=== PATIENT | female | born 1935 | race Caucasian/White ===

== ENCOUNTER → 2018-03-04 13:46 | Outpatient (CLI) | payer MEDICARE, OTHER, SELFPAY ==
[2018-03-04 15:00] LABS: Absolute Lymphocyte Count 1.61 X10^3/ul (0.83-4.51); Absolute Neutrophil Count 7.1 X10^3/uL (2.0-7.7); Basophil# 0.02 X10^3/uL; Basophil% 0.2 % (0-1); Eosinophil# 0.05 X10^3/uL; Eosinophils% 0.5 % (0-5); Hematocrit 43.3 % (37-47); Hemoglobin 14.2 g/dl (12.0-15.0); Lymphocyte # 1.61 X10^3/ul (4.0); Lymphocyte % 16.8 % (19-41); Mean Corp Hgb Conc 32.8 g/gl (32-36); Mean Corpuscular Hgb 30.3 pg (27.0-32.0); Mean Corpuscular Volume 92.5 fL (81-99); Mean Platelet Vol. 10.1 fl (6.2-12.0); Monocyte# 0.77 X10^3/uL; Neutrophil % 73.9 % (47-70); Platelet Count 294 K/mm3 (150-450); RBC Distribution Width CV 13.3 % (11.6-14.6); RBC Distribution Width SD 44.2 fl (35.1-43.9); Red Blood Count 4.68 M/mm3 (4.2-5.4); White Blood Count 9.6 K/mm3 (4.4-11.0)
[2018-03-04 15:07] LABS: POSITIVE COUNT NO; POSITIVE DIFFERENTIAL NO; POSITIVE MORPHOLOGY NO
[2018-03-04 15:30] LABS: ALB/GLOB Ratio 0.8 RATIO (0.9-2.4); AST(SGOT) 27 U/L (15-37); Alanine Aminotransfer ALT/SGPT 27 U/L (13-56); Albumin, Serum 3.4 g/dL (3.2-5.0); Alkaline Phosphatase 109 U/L (45-117); Anion Gap 11 (5-15); BUN 19 mg/dL (7-18); BUN/Creat Ratio 27.5 RATIO (10-20); Calcium,Total 9.2 mg/dL (8.5-10.1); Chloride 98 mmol/L (98-107); Creatinine, Serum 0.69 mg/dL (0.55-1.02); EST Glomerular Filtration Rate 86 mL/min (>60); Est Glom Filt Rate - Afr Amer 104 mL/min (>60); Glucose 81 mg/dL (74-106); Protein, Total 7.4 g/dL (6.4-8.2); Sodium Level 134 mmol/L (136-145); Thyroid Stim Hormone (TSH) 0.59 uIU/mL (0.358-3.74)
[2018-03-05 08:58] LABS: Vitamin B12 587 pg/mL (211-911); Vitamin D,25 Hydroxy 37.3 ng/mL (29.95-100.01)
[2018-03-07 02:34] LABS: Rapid Plasmin Reagin (RPR) NONREACTIVE (NONREACTIVE)
== END ==
PROVIDERS: Visit Provider Family Medicine Geriatric Medicine
DX: E55.9 Vitamin D deficiency, unspecified (principal); F05 Delirium due to known physiological condition; N39.0 Urinary tract infection, site not specified
CPT/HCPCS: 36415; 80053; 82306; 82607; 82746; 84443; 85025; 86592; 87077; 87086; 87088; 87186

== ENCOUNTER → 2018-10-08 15:37 | Outpatient (CLI) | payer MEDICARE, OTHER, SELFPAY ==
[2018-10-08 16:15] LABS: Absolute Neutrophil Count 5.5 X10^3/uL (2.0-7.7); Basophil# 0.01 X10^3/uL; Basophil% 0.1 % (0-1); Eosinophil# 0.07 X10^3/uL; Eosinophils% 0.9 % (0-5); Hematocrit 41.8 % (37-47); Hemoglobin 13.8 g/dl (12.0-15.0); Lymphocyte % 15.5 % (19-41); Mean Corpuscular Hgb 29.9 pg (27.0-32.0); Mean Corpuscular Volume 90.5 fL (81-99); Mean Platelet Vol. 10.8 fl (6.2-12.0); Monocyte# 0.92 X10^3/uL; Monocyte% 11.9 % (0-10); Neutrophil # 5.53 X10^3/uL (2.7-7.7); Neutrophil % 71.3 % (47-70); Platelet Count 144 K/mm3 (150-450); RBC Distribution Width CV 13.5 % (11.6-14.6); RBC Distribution Width SD 44.4 fl (35.1-43.9); Red Blood Count 4.62 M/mm3 (4.2-5.4); White Blood Count 7.8 K/mm3 (4.4-11.0)
[2018-10-08 16:21] LABS: POSITIVE COUNT NO; POSITIVE DIFFERENTIAL NO; POSITIVE MORPHOLOGY NO
[2018-10-08 16:42] LABS: Anion Gap 9 (5-15); BUN 18 mg/dL (7-18); BUN/Creat Ratio 23.7 RATIO (10-20); Calcium,Total 9.3 mg/dL (8.5-10.1); Chloride 99 mmol/L (98-107); Creatinine, Serum 0.76 mg/dL (0.55-1.02); EST Glomerular Filtration Rate 77 mL/min (>60); Est Glom Filt Rate - Afr Amer 93 mL/min (>60); Glucose 85 mg/dL (74-106); Potassium 3.7 mmol/L (3.5-5.1); Sodium Level 138 mmol/L (136-145)
== END ==
PROVIDERS: Visit Provider Family Medicine Geriatric Medicine
DX: I10 Essential (primary) hypertension (principal); N39.0 Urinary tract infection, site not specified
CPT/HCPCS: 80048; 85025; 87077; 87086; 87088; 87186

== ENCOUNTER → 2018-11-13 11:49 | Outpatient (CLI) | payer MEDICARE, OTHER, SELFPAY ==
[2018-11-13 12:42] LABS: Absolute Lymphocyte Count 1.26 X10^3/ul (0.83-4.51); Absolute Neutrophil Count 6.5 X10^3/uL (2.0-7.7); Basophil# 0.03 X10^3/uL; Basophil% 0.3 % (0-1); Eosinophils% 1.2 % (0-5); Hematocrit 41.9 % (37-47); Hemoglobin 13.9 g/dl (12.0-15.0); Lymphocyte # 1.26 X10^3/ul (4.0); Lymphocyte % 14.5 % (19-41); Mean Corp Hgb Conc 33.2 g/gl (32-36); Mean Corpuscular Hgb 30.2 pg (27.0-32.0); Mean Corpuscular Volume 91.1 fL (81-99); Mean Platelet Vol. 10.6 fl (6.2-12.0); Monocyte# 0.77 X10^3/uL; Monocyte% 8.9 % (0-10); Neutrophil # 6.49 X10^3/uL (2.7-7.7); Neutrophil % 74.9 % (47-70); Platelet Count 67 K/mm3 (150-450); RBC Distribution Width SD 45.9 fl (35.1-43.9); White Blood Count 8.7 K/mm3 (4.4-11.0)
[2018-11-13 12:47] LABS: POSITIVE COUNT NO; POSITIVE DIFFERENTIAL NO; POSITIVE MORPHOLOGY NO
[2018-11-13 13:03] LABS: AST(SGOT) 20 U/L (15-37); Alanine Aminotransfer ALT/SGPT 24 U/L (13-56); Albumin, Serum 3.7 g/dL (3.2-5.0); Alkaline Phosphatase 96 U/L (45-117); Anion Gap 8 (5-15); BUN 22 mg/dL (7-18); BUN/Creat Ratio 27.2 RATIO (10-20); Calcium,Total 9.2 mg/dL (8.5-10.1); Chloride 100 mmol/L (98-107); Creatinine, Serum 0.81 mg/dL (0.55-1.02); EST Glomerular Filtration Rate 72 mL/min (>60); Est Glom Filt Rate - Afr Amer 87 mL/min (>60); Globulin 3.6 g/dL (2.2-4.2); Glucose 87 mg/dL (74-106); Protein, Total 7.3 g/dL (6.4-8.2); Sodium Level 135 mmol/L (136-145); Thyroid Stim Hormone (TSH) 0.91 uIU/mL (0.358-3.74)
[2018-11-13 13:05] LABS: Vitamin D,25 Hydroxy 31.4 ng/mL (29.95-100.01)
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
== END ==
PROVIDERS: Visit Provider Family Medicine Geriatric Medicine
DX: E55.9 Vitamin D deficiency, unspecified (principal); I10 Essential (primary) hypertension
CPT/HCPCS: 36415; 80053; 82306; 84443; 85025

== ENCOUNTER → 2019-01-20 12:45 | Outpatient (CLI) | payer MEDICARE, OTHER, SELFPAY ==
--- NOTE | 2019-01-20 12:55 | RAD_ITS ---
STUDY: X-RAY - ABDOMEN/PELVIS REASON FOR EXAM: Female, 83 years old. Fecal impaction. TECHNIQUE: Two AP supine views of the abdomen and pelvis. COMPARISON: None. FINDINGS: Normal visualized lung bases. There is an unremarkable bowel gas pattern. Surgical are seen in the right upper quadrant. This is most likely secondary to prior cholecystectomy. There is a 8.3 mm calcification in the right mid abdomen. This may be within the right kidney. Normal soft tissue structures. There are diffuse degenerative changes of the visualized lumbar spine. RAD/Abdomen Single View IMPRESSION: Nonspecific bowel gas. Electronically Signed: Quirino Martinez MD at 14:04 EST , Service support ,
--- NOTE | 2019-01-20 12:55 | CT_ITS ---
STUDY: CT BRAIN WITHOUT CONTRAST REASON FOR EXAM: Female, 83 years old. The M. RADIATION DOSAGE (If Supplied By Facility): CTDIvol = ( 44.99 ) mGy, DLP = ( 812.98 ) mGycm TECHNIQUE: Transaxial CT imaging of the brain was performed without administration of intravenous contrast material. Individualized dose optimization techniques were used for this CT. COMPARISON: None. FINDINGS: Normal soft tissue structures. Normal calvarium. There is mild cerebral atrophy with widening of the extra-axial spaces and ventricular dilatation. There are areas of decreased attenuation within the white matter tracts of the supratentorial brain, consistent with microvascular disease changes. Tiny lacuna in the insular cortex of the left temporal lobe. Normal brainstem. Normal cerebellum. There is no intracranial hemorrhage. There are no findings of an acute ischemic infarction. Mucosal thickening along the posterior aspect of the left ethmoid sinus. CT/Brain/Head without Contrast IMPRESSION: Chronic involutional changes of the brain. Electronically Signed: Quirino Martinez MD at 13:21 EST , Service support ,
--- NOTE | 2019-01-20 12:55 | RAD_ITS ---
STUDY: X-RAY CHEST REASON FOR EXAM: Female, 83 years old. Syncope. TECHNIQUE: PA and lateral views of the chest. COMPARISON: None. FINDINGS: There is a 1.8 cm x 3.2 cm nodule in the right upper lobe. Hyperinflation. Increased markings at the lung bases suggestive of scarring. There is no demonstrated pleural abnormality. Normal size heart. Normal mediastinum and patricia. Normal visualized pulmonary arteries. There is atherosclerotic calcification of the aortic arch with tortuosity. There is demineralization of the osseous structures. Increased kyphosis. And anchor clip is seen in the right humeral head. There is no demonstrated abnormality of the visualized soft tissue structures of the upper abdomen. RAD/Chest PA and Lateral IMPRESSION: 3.2 cm x 1.8 cm nodule in the right upper lobe.. Findings suggestive of scarring at the lung bases. Electronically Signed: Quirino Martinez MD at 14:07 EST , Service support ,
[2019-01-20 15:48] LABS: Absolute Lymphocyte Count 1.09 X10^3/ul (0.83-4.51); Absolute Neutrophil Count 5.5 X10^3/uL (2.0-7.7); Basophil# 0.01 X10^3/uL; Basophil% 0.1 % (0-1); Eosinophil# 0.04 X10^3/uL; Eosinophils% 0.5 % (0-5); Hematocrit 40.8 % (37-47); Lymphocyte # 1.09 X10^3/ul (4.0); Lymphocyte % 14.6 % (19-41); Mean Corp Hgb Conc 31.9 g/gl (32-36); Mean Corpuscular Hgb 30.2 pg (27.0-32.0); Mean Corpuscular Volume 94.7 fL (81-99); Mean Platelet Vol. 11.2 fl (6.2-12.0); Monocyte# 0.78 X10^3/uL; Monocyte% 10.5 % (0-10); Neutrophil # 5.53 X10^3/uL (2.7-7.7); Neutrophil % 74.2 % (47-70); Platelet Count 174 K/mm3 (150-450); RBC Distribution Width CV 13.2 % (11.6-14.6); RBC Distribution Width SD 44.1 fl (35.1-43.9); Red Blood Count 4.31 M/mm3 (4.2-5.4); White Blood Count 7.5 K/mm3 (4.4-11.0)
[2019-01-20 16:00] LABS: ALB/GLOB Ratio 1.1 RATIO (0.9-2.4); AST(SGOT) 21 U/L (15-37); Alanine Aminotransfer ALT/SGPT 20 U/L (13-56); Albumin, Serum 3.3 g/dL (3.2-5.0); Alkaline Phosphatase 83 U/L (45-117); Anion Gap 11 (5-15); BUN 15 mg/dL (7-18); BUN/Creat Ratio 22.6 RATIO (10-20); Calcium,Total 8.3 mg/dL (8.5-10.1); Chloride 109 mmol/L (98-107); Creatinine, Serum 0.66 mg/dL (0.55-1.02); EST Glomerular Filtration Rate 90 mL/min (>60); Est Glom Filt Rate - Afr Amer 109 mL/min (>60); Globulin 3.1 g/dL (2.2-4.2); Glucose 69 mg/dL (74-106); Potassium 3.5 mmol/L (3.5-5.1); Protein, Total 6.4 g/dL (6.4-8.2); Sodium Level 142 mmol/L (136-145); Thyroid Stim Hormone (TSH) 0.63 uIU/mL (0.358-3.74)
[2019-01-20 16:02] LABS: POSITIVE COUNT NO; POSITIVE DIFFERENTIAL NO; POSITIVE MORPHOLOGY NO
== END ==
PROVIDERS: Family Provider Family Medicine Geriatric Medicine; PCP Family Medicine Geriatric Medicine; Referring Provider Family Medicine Geriatric Medicine; Visit Provider Family Medicine Geriatric Medicine
DX: F05 Delirium due to known physiological condition (principal); R53.83 Other fatigue
CPT/HCPCS: 36415; 70450; 71046; 74018; 80053; 84443; 85025

== ENCOUNTER 2019-01-26 14:02 | Inpatient (IN) | payer MEDICARE, OTHER, SELFPAY ==
[2019-01-26] VITALS (7 sets, daily range): BP systolic 103–207; BP diastolic 59–100; PULSE 73–102; RESP 16–20; TEMP 36.6–36.8; O2SAT 95–99; BMI 22.1; BMI 22.8
[2019-01-26 16:23] LABS: Bacteria 0 SEEN /hpf (None Seen); Mucous, Urine 0 SEEN /hpf (<or=2+); Red Blood Cells-Urine 0 SEEN /hpf (0-5); Squamous Epithelial Cells - UA 0 SEEN /hpf (5-10); White Blood Cells 0 SEEN /hpf (0-5)
[2019-01-26 16:26] LABS: Color, Urine Yellow (Yellow); Glucose, Dipstick Normal (Normal); Ketone-Dipstick Negative (Negative); Leukocyte Esterase-Dipstick Negative /ul (Negative); Nitrite-Dipstick Negative (Negative); Occult Blood-Urine 10 /ul (Negative); Protein-Dipstick 30 mg/dl (Negative); Specific Gravity, Urine 1.015 (1.002-1.030); Urine Bilirubin Dipstick Negative (Negative); Urine Clarity Clear (Clear); Urine Urobilinogen Normal (Normal)
--- NOTE | 2019-01-26 16:32 | EKG12_ITS ---
Test Reason : Blood Pressure : / mmHG Vent. Rate : 093 BPM Atrial Rate : 093 BPM P-R Int : 222 ms QRS Dur : 088 ms QT Int : 374 ms P-R-T Axes : 057 -16 081 degrees QTc Int : 465 ms Sinus rhythm with 1st degree A-V block Minimal voltage criteria for LVH, may be normal variant Borderline ECG Confirmed by PETE BOOTHE, MARYLIN ([id number]), editorial intern JOSE DE JESUS OZUNA ([id number] on 01/28/2019 10:09:16 AM Referred By: KATHERINE Confirmed By:MARYLIN FREEMAN MD
--- NOTE | 2019-01-26 16:36 | CT_ITS ---
STUDY: CT CHEST WITH CONTRAST REASON FOR EXAM: Female, 83 years old. Mass on chest x-ray. RADIATION DOSAGE (If Supplied By Facility): CTDIvol = ( 8.15 ) mGy, DLP = ( 263.02 ) mGycm TECHNIQUE: Transaxial imaging was performed following intravenous administration of Isovue 300 100 IV. Individualized dose optimization techniques were used for this CT. COMPARISON: X-ray 01/20/2019. FINDINGS: Heart size is normal. There is no pericardial effusion. 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 There is moderate calcification of the aorta and coronary arteries. There is no mediastinal mass or adenopathy. No hilar or axillary adenopathy. There is no pleural effusion. There is a 3.3 x 2.3 x 1.7 cm cavitary lesion in the superior segment of the right lower lobe. There is no definite peripheral enhancement. There is mild extension along the fissure. Differential considerations include: Malignancy versus cavitary pneumonia. 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 Gallbladder is surgically absent. Dilated common duct is consistent with prior cholecystectomy. 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 Mild degenerative spine changes are noted. No destructive changes. CT/Chest WITH Contrast IMPRESSION: 1. A 3.3 x 2.3 cm cavitary lesion in the right lower lobe is consistent with either malignancy or cavitary pneumonia. If clinical findings suggest pneumonia, short interval follow-up is advised after a course of antibiotic therapy to document regression/resolution. Otherwise, consider percutaneous biopsy. 2. 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 3. Chronic findings are detailed above. Electronically Signed: Shirley Sanchez MD at 18:09 EST Tel , Service support ,
--- NOTE | 2019-01-26 16:37 | NURSING ---
NO OLD EKGS
[2019-01-26 16:55] LABS: Absolute Lymphocyte Count 1.36 X10^3/ul (0.83-4.51); Absolute Neutrophil Count 5.5 X10^3/uL (2.0-7.7); Basophil# 0.03 X10^3/uL; Basophil% 0.4 % (0-1); Eosinophil# 0.13 X10^3/uL; Eosinophils% 1.7 % (0-5); Hemoglobin 14.7 g/dl (12.0-15.0); Lymphocyte # 1.36 X10^3/ul (4.0); Lymphocyte % 17.7 % (19-41); Mean Corpuscular Hgb 29.6 pg (27.0-32.0); Mean Corpuscular Volume 92.6 fL (81-99); Mean Platelet Vol. 9.1 fl (6.2-12.0); Monocyte# 0.71 X10^3/uL; Monocyte% 9.2 % (0-10); Neutrophil # 5.46 X10^3/uL (2.7-7.7); Neutrophil % 70.9 % (47-70); Platelet Count 234 K/mm3 (150-450); RBC Distribution Width CV 13.5 % (11.6-14.6); RBC Distribution Width SD 45.6 fl (35.1-43.9); Red Blood Count 4.97 M/mm3 (4.2-5.4); White Blood Count 7.7 K/mm3 (4.4-11.0)
[2019-01-26 17:06] LABS: POSITIVE COUNT NO; POSITIVE DIFFERENTIAL NO; POSITIVE MORPHOLOGY NO
[2019-01-26 17:08] LABS: ALB/GLOB Ratio 1.2 RATIO (0.9-2.4); AST(SGOT) 20 U/L (15-37); Alanine Aminotransfer ALT/SGPT 20 U/L (13-56); Albumin, Serum 4.1 g/dL (3.2-5.0); Alkaline Phosphatase 101 U/L (45-117); Anion Gap 10 (5-15); BUN 14 mg/dL (7-18); BUN/Creat Ratio 17.6 RATIO (10-20); Calcium,Total 9.3 mg/dL (8.5-10.1); Chloride 105 mmol/L (98-107); EST Glomerular Filtration Rate 73 mL/min (>60); Est Glom Filt Rate - Afr Amer 88 mL/min (>60); Globulin 3.5 g/dL (2.2-4.2); Glucose 98 mg/dL (74-106); Potassium 3.5 mmol/L (3.5-5.1); Protein, Total 7.6 g/dL (6.4-8.2); Sodium Level 144 mmol/L (136-145)
[2019-01-26 18:29] LABS: CPK Total, Creatine Kinase 53 U/L (26-192)
--- NOTE | 2019-01-26 19:07 | HP.PCM_ITS ---
Problem List (1) Hypertension Status: Chronic (2) Cavitary pneumonia Status: Acute History of Present Illness Date of Admission: 01/26/19 Chief Complaint: confusion The patient is a 83 year old F with a significant history of hypertension who presented to the emergency department because of 1 week history of confusion. Also patient was incontinent of stool x1 on the day of admission. Also a day before presentation she fell. She has a nonproductive cough. She denied night sweats or hemoptysis. She denies being close to anybody with tuberculosis. Reportedly outpatient chest x-ray showed a lung mass. At emergency department CT of the chest showed a cavitary lesion with different diagnosis including neoplasm. Past Medical History Past Medical History (Chronic Problems): Chronic Problems Hypertension (Chronic) Allergies Sulfa (Sulfonamide Antibiotics) Allergy (Verified 01/26/19 14:04) Hives Home Medications: Ambulatory Orders Medication Instructions Recorded Losartan Potassium 100 mg PO DAILY 01/26/19 Surgical History: cholecystectomy, tonsillectomy Lives: With Family Smoking Status: Never smoker Alcohol: Occasional - *Family History Maternal History Items: Cancer - Thyroid Paternal History Items: Cancer - colon Review of Systems Constitutional: Reports: Anorexia, Weight Change - Patient lost about 10 pounds in the last 3 months.. Denies: Chills, Fever HEENT: Denies: Head Aches, Sinus Congestion, Sinus Drainage Cardiovascular: Denies: Chest Pain, Palpitations Respiratory: Reports: Cough. Denies: Shortness of breath at rest, Sputum production Gastrointestinal: Denies: Abdominal Pain, Nausea, Vomiting Genitourinary: Denies: Dysuria Musculoskeletal: Reports: Joint Pain - coyccx, Leg Pain Skin: Denies: Rash, Wounds Neurological: Denies: Numbness, Tingling, Focal weakness Psychiatric: Denies: Anxiety, Depression, Homicidal Ideations, Suicidal Ideations Hematologic/ Lymphatic: Denies: Easy Bruising, Easy Bleeding VTE Information - Inpt Only VTE Present on Admission: No VTE Mechan Device Prophylaxis: None VTE Pharm Prophylaxis ordered?: Yes Patient Problems: Active and Suspected Problems Delirium (Acute) Cavitary pneumonia (Acute) - Physical Exam General: Alert, Oriented x3, Cooperative HEENT: Atraumatic, PERRLA, EOMI, Normocephalic Neck: Supple, No JVD, Negative Carotid Bruits Lungs: Clear to auscultation, Normal air movement Cardiovascular: Regular rate, No murmurs Abdomen: Bowel Sounds Present, Soft, Non Tender Extremities: No edema, Capillary Refill Less than 3 Seconds Skin: No rashes, No breakdown Musculoskeletal: No Tenderness to Palpation of Joints or Extremities Neurological: Neuro grossly intact Psych/Mental Status: Normal Affect, Appropriate Vital Signs Temp Pulse Resp BP Pulse Ox 98.2 F 87 16 207/99 H 95 01/26/19 14:05 01/26/19 18:26 01/26/19 18:26 01/26/19 18:26 01/26/19 18:26 Oxygen Delivery Method Room Air Weight: 56.699 kg Body Mass Index (BMI) 22.1 Laboratory Tests Past 24 Hrs 01/26/19 01/26/19 01/26/19 16:15 16:40 16:40 WBC 7.7 RBC 4.97 Hgb 14.7 Hct 46.0 MCV 92.6 MCH 29.6 MCHC 32.0 RDW 13.5 RDW Differential 45.6 H Plt Count 234 MPV 9.1 Immature Gran % (Auto) 0.100 Neut % (Auto) 70.9 H Lymph % (Auto) 17.7 L [place] % (Auto) 9.2 Eos % (Auto) 1.7 Baso % (Auto) 0.4 Absolute Neuts (auto) 5.5 Absolute Lymphs (auto) 1.36 Total Counted Not Reportable Sodium 144 Potassium 3.5 Chloride 105 Carbon Dioxide 29.0 Anion Gap 10 BUN 14 Creatinine 0.80 Estim Creat Clear Calc 43.30 Est GFR (MDRD) Af Amer 88 Est GFR (MDRD) Non-Af 73 BUN/Creatinine Ratio 17.6 Glucose 98 Calcium 9.3 Total Bilirubin 0.50 AST 20 ALT 20 Alkaline Phosphatase 101 Total Creatine Kinase Troponin I < 0.015 Total Protein 7.6 Albumin 4.1 Globulin 3.5 Albumin/Globulin Ratio 1.2 Urine Color Yellow Urine Clarity Clear Urine pH 7.0 Ur Specific [place] 1.015 Urine Protein 30 H Urine Glucose (UA) Normal Urine Ketones Negative Urine Occult Blood 10 H Urine Nitrite Negative Urine Bilirubin Negative Urine Urobilinogen Normal Ur Leukocyte Esterase Negative Urine RBC 0 SEEN Urine WBC 0 SEEN Ur Squamous Epith Cells 0 SEEN Urine Bacteria 0 SEEN Urine Mucus 0 SEEN 01/26/19 16:40 WBC RBC Hgb Hct MCV MCH MCHC RDW RDW Differential Plt Count MPV Immature Gran % (Auto) Neut % (Auto) Lymph % (Auto) [place] % (Auto) Eos % (Auto) Baso % (Auto) Absolute Neuts (auto) Absolute Lymphs (auto) Total Counted Sodium Potassium Chloride Carbon Dioxide Anion Gap BUN Creatinine Estim Creat Clear Calc Est GFR (MDRD) Af Amer Est GFR (MDRD) Non-Af BUN/Creatinine Ratio Glucose Calcium Total Bilirubin AST ALT Alkaline Phosphatase Total Creatine Kinase 53 Troponin I Total Protein Albumin Globulin Albumin/Globulin Ratio Urine Color Urine Clarity Urine pH Ur Specific [place] Urine Protein Urine Glucose (UA) Urine Ketones Urine Occult Blood Urine Nitrite Urine Bilirubin Urine Urobilinogen Ur Leukocyte Esterase Urine RBC Urine WBC Ur Squamous Epith Cells Urine Bacteria Urine Mucus Assessment/Plan All Active Problems Delirium (Acute) Cavitary pneumonia (Acute) The patient is a 83 year old F with a significant history of hypertension who presented to the emergency department because of 1 week history of confusion; outpatient chest x-ray of probable lung mass and CT chest findings of cavitary lesion; and also with severely elevated blood pressure. Acute encephalopathy Different diagnosis include infection/pneumonia; metabolic derangements. Reportedly her blood glucose was 69 at the emergency department but it improved. Trend BMP Patient was started on the emergency department. We will get blood cultures x 2; TSH and B12. Other management as in cavitary pneumonia Cavitary pneumonia Diagnosis includes Anaerobic lung infection; neoplasm; Staphylococcus aureus pneumonia; Klebsiella pneumonia; Pseudomonas aeruginosa; Aspergillus pneumonia; Histoplasmosis; tuberculosis; or other Management as above. Received Unasyn at emergency department. We will broaden coverage with vancomycin and Zosyn. Mucinex ordered Acapella and incentive spirometer We will get MRSA screen of the nares; Streptococcus pneumonia antigen and Legionella urine antigen.; acid-fast bacillus smear and culture Induced sputum ordered Consider pulmonary and infectious consult. Consider lung biopsy if patient is not improving on antibiotics. Hypertensive urgency: At the emergency department her blood pressure was severely elevated with systolic blood pressure of 212. Although patient missed her blood pressure medication in the last few days, reported she took her medication (Losartan) on the day of presentation. At the emergency department patient received clonidine 0.2 mg. In the first 24 hours will work to reduce her blood pressure by about 25%. Hydralazine as needed for systolic blood pressure more than 170 ordered. Continue home losartan in a.m. Also amlodipine 5 mg ordered for a.m. Cardiac diet. Fall Likely due to confusion. Management as an acute encephalopathy. Reports pain at the tailbone and left leg. As needed Tylenol ordered. DVT prophylaxis Subcutaneous Lovenox Code Visit Inpatient E&M: 13492 Init Hosp L3
--- NOTE | 2019-01-26 19:17 | ED.DCSUM_ITS ---
History of Present Illness Chief Complaint: Confusion Detail of Chief Complaint: Informant was son and noted change greater than 1 week Informant: Patient, Family Onset: Days Context: - - Unknown Timing: Intermittent Quality: Forgetfulness, trouble with speech, problems with fluency Location: Not applicable Current Severity: Mild Maximum Severity: Moderate Worsened by: Nothing Relieved by: Nothing Associated Symptoms: Uncertain Narrative: Elderly woman who lives with 1 of her sons. The son that lives down the street brought her to the emergency department. She had a reported fall on Saturday was on the floor for significant time.. She does not recall she had loss of conscious. She is on no anti-coagulant. She had a outpatient chest x-ray and outpatient CT January 20. Chest x-ray raises concern for mass right upper lobe. CT revealed chronic changes. She also has not been compliant with her antihypertensive medication. Patient not a good informant. History is limited. Prior similar symptoms: No Recent Illness/Hospitalization: No Past Medical History - Allergies and Home Meds Allergies/Adverse Reactions: Allergies Sulfa (Sulfonamide Antibiotics) Allergy (Verified 01/26/19 14:04) Hives Primary Care Physician: Joon Lujan Chi, MD [Primary Care Provider] - Past Medical History: - - Hypertension Surgical History: noncontributory Lives: With Family Smoking Status: Never smoker Alcohol: None Drugs: None Review of Systems General: Reports: Sweats. Denies: Chills, Fever, Malaise Eyes: Denies: Visual changes - bilaterally, Blurred Vision - bilaterally, Diplopia ENT: Denies: Bilateral ear pain, Rhinorrhea Cardiovascular: Denies: Chest pain, Palpitations Respiratory: Denies: Dyspnea, Cough, Sputum, Dyspnea on exertion, Orthopnea, Paroxysmal nocturnal dyspnea Gastrointestinal: Denies: Abdominal pain, Nausea, Vomiting, Diarrhea Genitourinary: Denies: Dysuria, Hematuria, Frequency Musculoskeletal: Denies: Myalgias, Arthralgias, Neck pain, Back pain Skin: Denies: Rash Neurological: Reports: Weakness. Denies: Headache, Parasthesia, Numbness Endocrine: Denies: Polyuria, Polydipsia, Cold intolerance Hematologic: Denies: Easy bruising, Easy bleeding Physical Exam Vital Signs/Narrative: Vital Signs Pulse Resp BP Pulse Ox 01/26/19 18:26 87 16 207/99 H 95 Inital Vital Signs reviewed: Yes General: Well nourished, Well developed Head: Normocephalic, Atraumatic Eyes: Perrl, EOMI. Negative for: Pale conjunctiva, Scleral icterus ENT: Moist mucous membranes, No rhinorrhea, TM's clear, Sinus tenderness Neck: Supple, Nontender, No lymphadenopathy, No JVD, - - No carotid bruits appreciated Cardiovascular: Regular rate, Regular rhythm, No murmurs, Normal S1, Normal S2 Respiratory: No distress, CTA bilaterally, Chest nontender Abdomen: Soft, Nontender, Nondistended, Normal bowel sounds, No masses Rectal: Deferred Back: Nontender, Normal Inspection Extremities: Nontender, No edema, Tenderness Skin: Normal color, No rash Neurological: Alert, Cranial nerves II-XII grossly intact, Normal Strength, Normal Sensation, Normal DTR, Confused, - - Patient was able to recall 3 out of 3 objects immediately. She was only able to recall 1 of 3 objects at 5 minutes. She had difficulty subtracting 3 from 20. Gait revealed shuffled steps. She was not ataxic.. Negative for: Oriented x3 Psychological: Normal affect Diagnostic/Tx/Re-eval CBC, CMP, troponin, CPK and UA are unremarkable. CT of the chest with IV contrast reveals a cavitary lesion right upper lobe. This may represent a neoplasm versus pneumonia. Patient was treated with 3.0 g of Unasyn IV piggyback. Patient and family were made aware of findings. - Medical Decision Making Dementia, delirium, need to rule out metabolic versus infectious cause. In light of chest x-ray findings need to rule out neoplasm. ED Disposition - Plan for ED Patient: Disposition: Acute Care [facility] Diagnosis: Cavitary lesion right upper lobe, Delirium, Hypertension Referrals: Joon Lujan Chi, MD [Primary Care Provider] -
[2019-01-26] MEDS: cloNIDine HCl 0.1 MG Tablet 0.2 MG PO (20:05)
[2019-01-26] MEDS: guaiFENesin 1,200 MG Tablet 1200 MG PO (20:52)
[2019-01-26 22:03] LABS: Vitamin B12 513 pg/mL (211-911)
[2019-01-27] VITALS (15 sets, daily range): BP systolic 131–205; BP diastolic 63–91; PULSE 64–93; RESP 16–18; TEMP 36.4–36.9; O2SAT 94–98
[2019-01-27] MEDS: Sodium Chloride 3% 500 ML IV.SOLN. INHALATION ×3 (05:20→23:20)
[2019-01-27 06:14] LABS: Anion Gap 9 (5-15); BUN 14 mg/dL (7-18); BUN/Creat Ratio 19.8 RATIO (10-20); Calcium,Total 8.5 mg/dL (8.5-10.1); Chloride 105 mmol/L (98-107); Creatinine, Serum 0.71 mg/dL (0.55-1.02); EST Glomerular Filtration Rate 84 mL/min (>60); Est Glom Filt Rate - Afr Amer 101 mL/min (>60); Estimated Creatinine Clearance 33.12 ml/min; Glucose 92 mg/dL (74-106); Potassium 3.8 mmol/L (3.5-5.1); Sodium Level 142 mmol/L (136-145)
[2019-01-27 06:36] LABS: M R Staph aureus DNA By PCR Negative (Negative); Probe Check PASS; Specimen Processing Control PASS
--- NOTE | 2019-01-27 07:55 | PN_ITS ---
Patient Problems: Active and Suspected Problems Delirium (Acute) Cavitary pneumonia (Acute) Subjective: The patient is a 83-year-old female with a past medical history of hypertension who was brought to the emergency department at [facility] on 01/26/2019 with complaint of confusion present for about 1 week. She also had a fall 1 day prior to being brought to the ED. Reportedly she had an OP CXR that showed a possible lung mass on 01/20. A brain CT on that date showed chronic involutional changes of the brain. She had been seen in the office by Dr. Lujan for delirium on 01/20. No signs of presentation to the emergency room were temperature 98.2, heart rate 102, blood pressure 176/97, respiratory rate 17 and she was 96-99% saturated on room air. White blood cell count was 7.7 with an unremarkable differential. Hemoglobin and platelets were within normal limits. BMP was normal. LFTs were normal. Troponin was less than 0.015. TSH was normal at 0.9 and the B12 was also normal at 513. UA had 0 WBCs. TB QuantiFERON was sent off and is pending. MRSA screen was negative. CT scan of the chest showed a 3.3 x 2.3 x 1.7 cm cavitary lesion in the superior segment of the right lower lobe. 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 Was a large duodenal diverticulum. All events the past 24 hours been reviewed. Afebrile since admission. Vital signs are stable and the current blood pressure is 131/63. BMP is again within normal limits. I reviewed the CT of the chest and there also appears to be a small nodule in the R upper lobe and also in the RLL she is confused....her granddaughter Rosie tells me that she is confused at home.....glen when she is sick She also tells me that the pt changes the subject when she does not know the answer to a question. She is really aphasic.....she can follow commands and the speech is fluent......she is just confused. GD states she has not lost weight over the past few months Has not been coughing Never smoked Denies ever being exposed to someone with TB - Physical Exam General: Alert, Cooperative, Well developed, Well nourished, Confused, Disoriented - she is oriented to person and she can tell me that she is at [facility] but she can not tell me the month, the year or the day of the week. Told me that fish can sometimes fly HEENT: Atraumatic, PERRLA, EOMI, Normocephalic Oral: Dry Mucosa Neck: Supple, No JVD, Negative Carotid Bruits, No Nodes, No Nuchal Rigidity, Trachea Midline Lungs: Clear to auscultation - anterior and lateral Cardiovascular: Regular rate, Regular Rhythm, Normal S1, Normal S2, No murmurs, No rub noted, No Gallop Abdomen: Bowel Sounds Present, Soft, Non Tender, Non-Distended, - - No guarding with palpation Extremities: No clubbing, No cyanosis, No edema, No Calf Tenderness Skin: No rashes, No breakdown Lymphatic: - - No supraclavicular or cervical adenopathy Neurological: Cranial nerves II-XII grossly intact, Neuro grossly intact, - - able to follow simple commands Vital Signs Temp Pulse Resp BP Pulse Ox 97.6 F L 69 18 131/63 H 94 01/27/19 03:10 01/27/19 05:59 01/27/19 05:20 01/27/19 03:10 01/27/19 05:20 Oxygen Delivery Method Room Air Weight: 126 lb 12.253 oz Body Mass Index (BMI) 22.8 Intake and Output for Last 24 Hours 01/25/19 01/26/19 01/27/19 23:59 23:59 23:59 Intake Total 612 / 612 Balance 612 / 612 Laboratory Tests Past 24 Hrs 01/26/19 01/26/19 01/26/19 16:15 16:40 16:40 WBC 7.7 RBC 4.97 Hgb 14.7 Hct 46.0 MCV 92.6 MCH 29.6 MCHC 32.0 RDW 13.5 RDW Differential 45.6 H Plt Count 234 MPV 9.1 Immature Gran % (Auto) 0.100 Neut % (Auto) 70.9 H Lymph % (Auto) 17.7 L [place] % (Auto) 9.2 Eos % (Auto) 1.7 Baso % (Auto) 0.4 Absolute Neuts (auto) 5.5 Absolute Lymphs (auto) 1.36 Total Counted Not Reportable Sodium 144 Potassium 3.5 Chloride 105 Carbon Dioxide 29.0 Anion Gap 10 BUN 14 Creatinine 0.80 Estim Creat Clear Calc 43.30 Est GFR (MDRD) Af Amer 88 Est GFR (MDRD) Non-Af 73 BUN/Creatinine Ratio 17.6 Glucose 98 Calcium 9.3 Total Bilirubin 0.50 AST 20 ALT 20 Alkaline Phosphatase 101 Total Creatine Kinase Troponin I < 0.015 Total Protein 7.6 Albumin 4.1 Globulin 3.5 Albumin/Globulin Ratio 1.2 Vitamin B12 TSH Urine Color Yellow Urine Clarity Clear Urine pH 7.0 Ur Specific [place] 1.015 Urine Protein 30 H Urine Glucose (UA) Normal Urine Ketones Negative Urine Occult Blood 10 H Urine Nitrite Negative Urine Bilirubin Negative Urine Urobilinogen Normal Ur Leukocyte Esterase Negative Urine RBC 0 SEEN Urine WBC 0 SEEN Ur Squamous Epith Cells 0 SEEN Urine Bacteria 0 SEEN Urine Mucus 0 SEEN MRSA (PCR) TB Test (QFT) Nil TB Test (QFT) Mitogen TB Test (QFT) Ag 1 TB Test (QFT) Ag 2 TB Test (QFT) TB Positive Criteria 01/26/19 01/26/19 01/26/19 16:40 16:40 21:10 WBC RBC Hgb Hct MCV MCH MCHC RDW RDW Differential Plt Count MPV Immature Gran % (Auto) Neut % (Auto) Lymph % (Auto) [place] % (Auto) Eos % (Auto) Baso % (Auto) Absolute Neuts (auto) Absolute Lymphs (auto) Total Counted Sodium Potassium Chloride Carbon Dioxide Anion Gap BUN Creatinine Estim Creat Clear Calc Est GFR (MDRD) Af Amer Est GFR (MDRD) Non-Af BUN/Creatinine Ratio Glucose Calcium Total Bilirubin AST ALT Alkaline Phosphatase Total Creatine Kinase 53 Troponin I Total Protein Albumin Globulin Albumin/Globulin Ratio Vitamin B12 513 TSH 0.90 Urine Color Urine Clarity Urine pH Ur Specific [place] Urine Protein Urine Glucose (UA) Urine Ketones Urine Occult Blood Urine Nitrite Urine Bilirubin Urine Urobilinogen Ur Leukocyte Esterase Urine RBC Urine WBC Ur Squamous Epith Cells Urine Bacteria Urine Mucus MRSA (PCR) TB Test (QFT) Nil TB Test (QFT) Mitogen TB Test (QFT) Ag 1 TB Test (QFT) Ag 2 TB Test (QFT) TB Positive Criteria 01/26/19 01/27/19 01/27/19 23:15 05:28 06:06 WBC RBC Hgb Hct MCV MCH MCHC RDW RDW Differential Plt Count MPV Immature Gran % (Auto) Neut % (Auto) Lymph % (Auto) [place] % (Auto) Eos % (Auto) Baso % (Auto) Absolute Neuts (auto) Absolute Lymphs (auto) Total Counted Sodium 142 Potassium 3.8 Chloride 105 Carbon Dioxide 28.0 Anion Gap 9 BUN 14 Creatinine 0.71 Estim Creat Clear Calc 33.12 Est GFR (MDRD) Af Amer 101 Est GFR (MDRD) Non-Af 84 BUN/Creatinine Ratio 19.8 Glucose 92 Calcium 8.5 Total Bilirubin AST ALT Alkaline Phosphatase Total Creatine Kinase Troponin I Total Protein Albumin Globulin Albumin/Globulin Ratio Vitamin B12 TSH Urine Color Urine Clarity Urine pH Ur Specific [place] Urine Protein Urine Glucose (UA) Urine Ketones Urine Occult Blood Urine Nitrite Urine Bilirubin Urine Urobilinogen Ur Leukocyte Esterase Urine RBC Urine WBC Ur Squamous Epith Cells Urine Bacteria Urine Mucus MRSA (PCR) Negative TB Test (QFT) Nil Pending TB Test (QFT) Mitogen Pending TB Test (QFT) Ag 1 Pending TB Test (QFT) Ag 2 Pending TB Test (QFT) Pending TB Positive Criteria Pending Medical Necessity - Tobacco Use Smoking Status: Never smoker Assessment/Plan All Active Problems Delirium (Acute) Cavitary pneumonia (Acute) Impressions 1. acute delirium vs chronic dementia exacerbated by possible infection? 2. Cavitary lesion of the right lung with other nodules that are not cavitating in the right lung - lifelong non-smoker 3. Hypertension 4. 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 Large duodenal diverticulum The ESR is only 10 and the CRP is only mildly elevated at 7.77. She has no obvious signs of infection, is not anemic and does not appear acutely ill. I am doubtful that this mass is going to be of infectious etiology. Check an MRI of the brain - I suspect she has dementia and not acute confusion. Quanteferon and sputum cultures and AFB stains are pending If the infectious W/U is negative will likely need to have a bx of the cavitary mass Appreciate Dr. Correia's consult PRN Louise if she gets agitated Code Visit Inpatient E&M: 59408 Subs Hosp L3
[2019-01-27] MEDS: Losartan Potassium 100 MG Tablet PO (08:06)
[2019-01-27] MEDS: amLODIPine 5 MG Tablet PO (08:06)
[2019-01-27] MEDS: Enoxaparin 40 MG/0.4 ML Syringe SC (08:06)
[2019-01-27] MEDS: guaiFENesin 1,200 MG Tablet 1200 MG PO ×2 (08:06→23:32)
[2019-01-27 08:15] LABS: CRP 7.77 mg/L (0.0-3.0)
[2019-01-27 08:36] LABS: Erythrocyte Sedimentation Rate 10 mm/hr (0-30)
--- NOTE | 2019-01-27 11:25 | PCM.CONS.GEN ---
Reason for Consult Date of Consultation: 01/27/19 Reason for Consultation: Cavitary lung mass with other nodules History of Present Illness: The patient is an 83-year-old female, with a history as outlined below, who presented to the emergency department on January 26 with complaints of confusion. The patient currently follows with Dr. Lujan and recently underwent a CT head on January 20 due to perceived delirium. That head CT only revealed chronic involutional changes of the brain. Of note, history pertinent to the patient's hospitalization is somewhat limited, as the patient's mentation is impaired and her speech is often times nonsensical in nature. On presentation to the emergency department, the patient was noted to be afebrile and hypertensive. She was maintaining appropriate oxygen saturations on room air. Laboratory evaluation revealed no evidence of a leukocytosis. Chemistry profile was largely unremarkable. Troponin was negative. Urinalysis was largely unremarkable. MRSA screen was negative. A CT chest with contrast was subsequently obtained which revealed no evidence of mediastinal adenopathy. There was, however, evidence of a 3 x 1.7 cm cavitary lesion in the right upper lobe, along with several other scattered nodules in the right hemithorax. The patient was subsequently placed on antibiotics and admitted to the medical surgical floor for ongoing management. The patient denies ever having been diagnosed with or being exposed to tuberculosis previously. She has lived in [place] her entire life. She denies a personal smoking history. She denies fevers, chills, night sweats or hemoptysis. Past Medical History Past Medical History (Chronic Problems): Chronic Problems Hypertension (Chronic) Allergies Sulfa (Sulfonamide Antibiotics) Allergy (Verified 01/26/19 14:04) Hives Home Medications: Ambulatory Orders Medication Instructions Recorded Losartan Potassium 100 mg PO DAILY 01/26/19 Surgical History: cholecystectomy, tonsillectomy Lives: With Family Smoking Status: Never smoker Alcohol: Occasional Drugs: None - *Family History Maternal History Items: Cancer - Thyroid Paternal History Items: Cancer - colon Review of Systems Constitutional: Denies: Chills, Fever, Night Sweats, Weight Change Eyes: Denies: Blurred vision, Double vision HEENT: Denies: Difficulty Swallowing, Dysphasia, Head Aches, Sinus Congestion, Sinus Drainage Cardiovascular: Denies: Chest Pain, Palpitations Respiratory: Denies: Cough, Hemoptysis, Shortness of breath at rest, Sputum production Gastrointestinal: Denies: Abdominal Pain, Nausea, Vomiting Genitourinary: Denies: Dysuria Musculoskeletal: Denies: Joint Pain, Joint Tenderness Skin: Denies: Rash, Wounds Neurological: Reports: Confusion Psychiatric: Denies: Anxiety, Depression, Homicidal Ideations, Suicidal Ideations Hematologic/ Lymphatic: Denies: Easy Bruising, Easy Bleeding Patient Problems: Active and Suspected Problems Delirium (Acute) Cavitary pneumonia (Acute) Objective: The patient's most recent lab work, culture data and imaging studies have all been personally reviewed. Strep and urine Legionella antigens are currently negative. Blood cultures are pending. QuantiFERON is currently pending. Sputum for AFB is also pending. - Physical Exam General: Alert, Cooperative, No apparent distress, Confused HEENT: Atraumatic, PERRLA, Normocephalic Oral: No Gingival or Mucosal Lesions/ Ulcerations Neck: Supple, No Nodes, Trachea Midline Lungs: - - Clear across anterior lung neely. Cardiovascular: Regular rate, Regular Rhythm, Normal S1, Normal S2, No murmurs Abdomen: Bowel Sounds Present, Soft, Non Tender Extremities: No clubbing, No cyanosis, No edema Skin: No breakdown Musculoskeletal: No Tenderness to Palpation of Joints or Extremities Lymphatic: No Cervical, Supraclavicular, or Inguinal Adenopathy Neurological: - - No focal neurological deficits. Vital Signs Temp Pulse Resp BP Pulse Ox 36.4 C L 76 18 179/91 H 94 01/27/19 09:43 01/27/19 09:43 01/27/19 09:43 01/27/19 09:52 01/27/19 09:43 Oxygen Delivery Method Room Air Weight: 126 lb 12.253 oz Body Mass Index (BMI) 22.8 Intake and Output for Last 24 Hours 01/25/19 01/26/19 01/27/19 23:59 23:59 23:59 Intake Total 612 / 612 Balance 612 / 612 Microbiology Past 72 Hours 01/27/19 05:45 Legionella Antigen - Final Urine, Clean Catch Streptococcus pneumoniae Antigen (M - Final Laboratory Tests Past 24 Hrs 01/26/19 01/26/19 01/26/19 16:15 16:40 16:40 WBC 7.7 RBC 4.97 Hgb 14.7 Hct 46.0 MCV 92.6 MCH 29.6 MCHC 32.0 RDW 13.5 RDW Differential 45.6 H Plt Count 234 MPV 9.1 Immature Gran % (Auto) 0.100 Neut % (Auto) 70.9 H Lymph % (Auto) 17.7 L [place] % (Auto) 9.2 Eos % (Auto) 1.7 Baso % (Auto) 0.4 Absolute Neuts (auto) 5.5 Absolute Lymphs (auto) 1.36 Total Counted Not Reportable ESR Sodium 144 Potassium 3.5 Chloride 105 Carbon Dioxide 29.0 Anion Gap 10 BUN 14 Creatinine 0.80 Estim Creat Clear Calc 43.30 Est GFR (MDRD) Af Amer 88 Est GFR (MDRD) Non-Af 73 BUN/Creatinine Ratio 17.6 Glucose 98 Calcium 9.3 Total Bilirubin 0.50 AST 20 ALT 20 Alkaline Phosphatase 101 Total Creatine Kinase Troponin I < 0.015 C-React Prot Ext Range Total Protein 7.6 Albumin 4.1 Globulin 3.5 Albumin/Globulin Ratio 1.2 Vitamin B12 TSH Urine Color Yellow Urine Clarity Clear Urine pH 7.0 Ur Specific [place] 1.015 Urine Protein 30 H Urine Glucose (UA) Normal Urine Ketones Negative Urine Occult Blood 10 H Urine Nitrite Negative Urine Bilirubin Negative Urine Urobilinogen Normal Ur Leukocyte Esterase Negative Urine RBC 0 SEEN Urine WBC 0 SEEN Ur Squamous Epith Cells 0 SEEN Urine Bacteria 0 SEEN Urine Mucus 0 SEEN MRSA (PCR) TB Test (QFT) Nil TB Test (QFT) Mitogen TB Test (QFT) Ag 1 TB Test (QFT) Ag 2 TB Test (QFT) TB Positive Criteria 01/26/19 01/26/19 01/26/19 16:40 16:40 21:10 WBC RBC Hgb Hct MCV MCH MCHC RDW RDW Differential Plt Count MPV Immature Gran % (Auto) Neut % (Auto) Lymph % (Auto) [place] % (Auto) Eos % (Auto) Baso % (Auto) Absolute Neuts (auto) Absolute Lymphs (auto) Total Counted ESR Sodium Potassium Chloride Carbon Dioxide Anion Gap BUN Creatinine Estim Creat Clear Calc Est GFR (MDRD) Af Amer Est GFR (MDRD) Non-Af BUN/Creatinine Ratio Glucose Calcium Total Bilirubin AST ALT Alkaline Phosphatase Total Creatine Kinase 53 Troponin I C-React Prot Ext Range Total Protein Albumin Globulin Albumin/Globulin Ratio Vitamin B12 513 TSH 0.90 Urine Color Urine Clarity Urine pH Ur Specific [place] Urine Protein Urine Glucose (UA) Urine Ketones Urine Occult Blood Urine Nitrite Urine Bilirubin Urine Urobilinogen Ur Leukocyte Esterase Urine RBC Urine WBC Ur Squamous Epith Cells Urine Bacteria Urine Mucus MRSA (PCR) TB Test (QFT) Nil TB Test (QFT) Mitogen TB Test (QFT) Ag 1 TB Test (QFT) Ag 2 TB Test (QFT) TB Positive Criteria 01/26/19 01/27/19 01/27/19 23:15 05:28 05:28 WBC RBC Hgb Hct MCV MCH MCHC RDW RDW Differential Plt Count MPV Immature Gran % (Auto) Neut % (Auto) Lymph % (Auto) [place] % (Auto) Eos % (Auto) Baso % (Auto) Absolute Neuts (auto) Absolute Lymphs (auto) Total Counted ESR 10 Sodium 142 Potassium 3.8 Chloride 105 Carbon Dioxide 28.0 Anion Gap 9 BUN 14 Creatinine 0.71 Estim Creat Clear Calc 33.12 Est GFR (MDRD) Af Amer 101 Est GFR (MDRD) Non-Af 84 BUN/Creatinine Ratio 19.8 Glucose 92 Calcium 8.5 Total Bilirubin AST ALT Alkaline Phosphatase Total Creatine Kinase Troponin I C-React Prot Ext Range Total Protein Albumin Globulin Albumin/Globulin Ratio Vitamin B12 TSH Urine Color Urine Clarity Urine pH Ur Specific [place] Urine Protein Urine Glucose (UA) Urine Ketones Urine Occult Blood Urine Nitrite Urine Bilirubin Urine Urobilinogen Ur Leukocyte Esterase Urine RBC Urine WBC Ur Squamous Epith Cells Urine Bacteria Urine Mucus MRSA (PCR) Negative TB Test (QFT) Nil TB Test (QFT) Mitogen TB Test (QFT) Ag 1 TB Test (QFT) Ag 2 TB Test (QFT) TB Positive Criteria 01/27/19 01/27/19 05:28 06:06 WBC RBC Hgb Hct MCV MCH MCHC RDW RDW Differential Plt Count MPV Immature Gran % (Auto) Neut % (Auto) Lymph % (Auto) [place] % (Auto) Eos % (Auto) Baso % (Auto) Absolute Neuts (auto) Absolute Lymphs (auto) Total Counted ESR Sodium Potassium Chloride Carbon Dioxide Anion Gap BUN Creatinine Estim Creat Clear Calc Est GFR (MDRD) Af Amer Est GFR (MDRD) Non-Af BUN/Creatinine Ratio Glucose Calcium Total Bilirubin AST ALT Alkaline Phosphatase Total Creatine Kinase Troponin I C-React Prot Ext Range 7.77 H Total Protein Albumin Globulin Albumin/Globulin Ratio Vitamin B12 TSH Urine Color Urine Clarity Urine pH Ur Specific [place] Urine Protein Urine Glucose (UA) Urine Ketones Urine Occult Blood Urine Nitrite Urine Bilirubin Urine Urobilinogen Ur Leukocyte Esterase Urine RBC Urine WBC Ur Squamous Epith Cells Urine Bacteria Urine Mucus MRSA (PCR) TB Test (QFT) Nil Pending TB Test (QFT) Mitogen Pending TB Test (QFT) Ag 1 Pending TB Test (QFT) Ag 2 Pending TB Test (QFT) Pending TB Positive Criteria Pending Clinical Impression(s) from Imaging Studies Chest CT 01/26/19 16:36 IMPRESSION: 1. A 3.3 x 2.3 cm cavitary lesion in the right lower lobe is consistent with either malignancy or cavitary pneumonia. If clinical findings suggest pneumonia, short interval follow-up is advised after a course of antibiotic therapy to document regression/resolution. Otherwise, consider percutaneous biopsy. 2. 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 3. Chronic findings are detailed above. Electronically Signed: Shirley Sanchez MD at 18:09 EST Tel , Service support , Assessment/Plan All Active Problems Delirium (Acute) Cavitary pneumonia (Acute) RECOMMENDATIONS: 1. QuantiFERON currently in process. Sputum for AFB x3 currently pending. 2. I do feel that the antibiotics can likely be discontinued at this time. 3. Consider scheduling percutaneous lung biopsy for the end of the week. IMPRESSIONS: 1. Abnormal chest imaging The etiology and chronicity of the patient's cavitary lung lesion is unknown. She does not have any overt risk factors for tuberculosis or fungal pneumonia. Although, the reliability of the patient's history is somewhat questionable given her impaired mentation. She is currently admits to workup for TB. QuantiFERON is pending as well as sputum for AFB. However, the patient does not currently endorse any signs or symptoms of a systemic infection. She has no evidence of a fever or elevated white count. She denies the presence of a cough and shortness of breath. I do feel that once infectious etiologies, like TB are ruled out, that the patient be considered for percutaneous lung biopsy. We will continue to follow. 2. Altered mentation Considerations include acute delirium versus chronic underlying dementia with progression. MRI has been ordered for further evaluation. 3. Hypertension Continue home medications as indicated. This note was generated with [employer] software. It may contain incorrect words, spelling, and punctuation that were not noted in checking the note before signing. Code Visit Inpatient E&M: 92796 Init Hosp L3
--- NOTE | 2019-01-27 13:49 | CPS ---
sputum cup put at pt's bedside for pt's sputum sample, explained to pt to use pep therapy to help with productive cough. Pt had strong cough at this time, no secretions produced. No NT suction done at this time, Leonel RN aware of sputum cup at bedside.
[2019-01-27] MEDS: 0.9% NaCl Peripheral Flush Adult/Peds IV ×2 (15:41→15:42)
[2019-01-27] MEDS: Acetaminophen 325 MG Tablet 650 MG PO (18:01)
[2019-01-28] VITALS (13 sets, daily range): BP systolic 138–190; BP diastolic 70–99; PULSE 77–92; RESP 16–20; TEMP 36.1–37; O2SAT 94–98
--- NOTE | 2019-01-28 | SPU_PTH ---
PATIENT: DIEGO ESTRADA LOC: [facility] U#:[id number] AGE/SX: 83/F ROOM: [facility] RE01/26/[address]: Dr. Darleen Webb DO : 1935 BED: 1 DIS: 01/30/2019 SPEC #: [id number] RECD: 01/28/19 12:05 STATUS: SHWETHA SARA #: [id number] RACHELE: 01/28/19 00:[address]: Darleen Webb DEPT: CYTOLOGY RECD BY: Benson Victoria ENTERED: 01/28/19 12:06 SP TYPE: Sputum Cy OTHR DR: DO Dr. Asaf Wheeler MD Dr. Tai Chi Kwok, MD Tissues: Sputum Procedures: PAS Fungus (control) Pap Stain (control) Special Stain Group II Special Stain Group I AFB Stain (control) Cytospin Fluid HEADER OPERATION: Not noted PRE-OP DIAGNOSIS: Cavitary lung lesion TISSUE SUBMITTED: Sputum for cytology DIAGNOSIS CYTOLOGY Sputum for cytology: Negative for malignant cells. Squamous epithelial cells, a few acute and chronic inflammatory cells, rare histiocytes and bacterial organisms present. CE:[email or web address] 01/29/19 COMMENT Special stain for AFB with appropriate control is negative for acid fast bacilli. Special stain with appropriate control for PAS is negative for fungal organisms. CYTOLOGY STUDY Slides are reviewed. CYTOLOGY GROSS Received is 1 ml of thick cloudy fluid labeled with the patient's name and and designated per the requisition as sputum. Submitted for cytology preparation. / 01/28/19 TC: 3 CPT: 97984, 79348 x2
[2019-01-28] MEDS: 0.9% NaCl Peripheral Flush Adult/Peds IV ×4 (05:10→22:23)
--- NOTE | 2019-01-28 06:15 | SPU_PTH ---
PATIENT: DIEGO ESTRADA LOC: [facility] U#:[id number] AGE/SX: 83/F ROOM: [facility] RE01/26/[address]: Dr. Darleen Webb DO : 1935 BED: 1 DIS: 01/30/2019 SPEC #: [id number] RECD: 01/29/19 12:13 STATUS: SHWETHA SARA #: [id number] RACHELE: 01/28/19 06:[address]: Darleen Webb DEPT: CYTOLOGY RECD BY: Te Benson ENTERED: 01/29/19 12:13 SP TYPE: Sputum Cy OTHR DR: DO Dr. Asaf Wheeler MD Dr. Tai Chi Kwok, MD Tissues: Sputum Procedures: Pap Stain (control) Special Stain Group II Special Stain Group I AFB Stain (control) Cytospin Fluid HEADER OPERATION: Not noted PRE-OP DIAGNOSIS: Cavitary pneumonitis TISSUE SUBMITTED: Sputum for cytology DIAGNOSIS CYTOLOGY Sputum for cytology (smears and cytospin): Negative for malignant cells. Special stain for acid fast bacilli is negative for organisms; matched control is appropriate. See cytology study and comment. SJ:[email or web address] 01/29/19 COMMENT Clinical correlation and appropriate follow up are necessary. CYTOLOGY STUDY Slides are reviewed. The specimen consists of squamous cells, respiratory epithelial cells, macrophages, inflammatory cells and organisms consistent with bacteria. CYTOLOGY GROSS Received is 1 ml of thick cloudy fluid labeled with the patient's name and and designated per the requisition as sputum. Submitted for cytology preparation. / 01/29/19 TC:5 CPT: 08763
[2019-01-28] MEDS: Sodium Chloride 3% 500 ML IV.SOLN. INHALATION (07:16)
--- NOTE | 2019-01-28 07:31 | PCM.PROGNOTE ---
Patient Problems: Active and Suspected Problems Delirium (Acute) Cavitary pneumonia (Acute) Subjective: The patient was seen and examined at the bedside this morning. Events from the last 24 hours have been reviewed. The patient is currently afebrile, hemodynamically stable and maintaining appropriate oxygen saturations on room air. Only 1 sputum for AFB has been sent thus far. The patient remains confused. Objective: The patient's most recent lab work, culture data and imaging studies have all been personally reviewed. Strep and urine Legionella antigens were both negative. Blood cultures are pending. Sputum for AFB is pending. - Physical Exam General: Alert, Cooperative, No apparent distress, Confused, Disoriented HEENT: Atraumatic, PERRLA, Normocephalic Oral: No Gingival or Mucosal Lesions/ Ulcerations Neck: Supple, No Nodes, Trachea Midline Lungs: Normal air movement, No rhonchi, No wheeze, No rales Cardiovascular: Regular rate, Regular Rhythm, Normal S1, Normal S2, No murmurs Abdomen: Bowel Sounds Present, Soft, Non Tender Extremities: No clubbing, No cyanosis, No edema Skin: No breakdown Musculoskeletal: No Tenderness to Palpation of Joints or Extremities Lymphatic: No Cervical, Supraclavicular, or Inguinal Adenopathy Neurological: Neuro grossly intact Vital Signs Temp Pulse Resp BP Pulse Ox 36.8 C 92 20 H 138/70 H 94 01/28/19 04:24 01/28/19 07:19 01/28/19 07:19 01/28/19 04:24 01/28/19 07:19 Oxygen Delivery Method Room Air Weight: 126 lb 12.253 oz Body Mass Index (BMI) 22.8 Intake and Output for Last 24 Hours 01/26/19 01/27/19 01/28/19 23:59 23:59 23:59 Intake Total 732 / 732 500 / 500 Balance 732 / 732 500 / 500 Microbiology Past 72 Hours 01/27/19 05:45 Legionella Antigen - Final Urine, Clean Catch Streptococcus pneumoniae Antigen (M - Final Laboratory Tests Past 24 Hrs 01/27/19 01/27/19 05:28 05:28 ESR 10 C-React Prot Ext Range 7.77 H Labs (Last 48 Hours) 01/26/19 01/26/19 01/26/19 16:15 16:40 16:40 WBC 7.7 RBC 4.97 Hgb 14.7 Hct 46.0 MCV 92.6 MCH 29.6 MCHC 32.0 RDW 13.5 RDW Differential 45.6 H Plt Count 234 MPV 9.1 Immature Gran % (Auto) 0.100 Neut % (Auto) 70.9 H Lymph % (Auto) 17.7 L [place] % (Auto) 9.2 Eos % (Auto) 1.7 Baso % (Auto) 0.4 Absolute Neuts (auto) 5.5 Absolute Lymphs (auto) 1.36 Total Counted Not Reportable ESR Sodium 144 Potassium 3.5 Chloride 105 Carbon Dioxide 29.0 Anion Gap 10 BUN 14 Creatinine 0.80 Estim Creat Clear Calc 43.30 Est GFR (MDRD) Af Amer 88 Est GFR (MDRD) Non-Af 73 BUN/Creatinine Ratio 17.6 Glucose 98 Calcium 9.3 Total Bilirubin 0.50 AST 20 ALT 20 Alkaline Phosphatase 101 Total Creatine Kinase Troponin I < 0.015 C-React Prot Ext Range Total Protein 7.6 Albumin 4.1 Globulin 3.5 Albumin/Globulin Ratio 1.2 Vitamin B12 TSH Urine Color Yellow Urine Clarity Clear Urine pH 7.0 Ur Specific [place] 1.015 Urine Protein 30 H Urine Glucose (UA) Normal Urine Ketones Negative Urine Occult Blood 10 H Urine Nitrite Negative Urine Bilirubin Negative Urine Urobilinogen Normal Ur Leukocyte Esterase Negative Urine RBC 0 SEEN Urine WBC 0 SEEN Ur Squamous Epith Cells 0 SEEN Urine Bacteria 0 SEEN Urine Mucus 0 SEEN MRSA (PCR) TB Test (QFT) Nil TB Test (QFT) Mitogen TB Test (QFT) Ag 1 TB Test (QFT) Ag 2 TB Test (QFT) TB Positive Criteria 01/26/19 01/26/19 01/26/19 16:40 16:40 21:10 WBC RBC Hgb Hct MCV MCH MCHC RDW RDW Differential Plt Count MPV Immature Gran % (Auto) Neut % (Auto) Lymph % (Auto) [place] % (Auto) Eos % (Auto) Baso % (Auto) Absolute Neuts (auto) Absolute Lymphs (auto) Total Counted ESR Sodium Potassium Chloride Carbon Dioxide Anion Gap BUN Creatinine Estim Creat Clear Calc Est GFR (MDRD) Af Amer Est GFR (MDRD) Non-Af BUN/Creatinine Ratio Glucose Calcium Total Bilirubin AST ALT Alkaline Phosphatase Total Creatine Kinase 53 Troponin I C-React Prot Ext Range Total Protein Albumin Globulin Albumin/Globulin Ratio Vitamin B12 513 TSH 0.90 Urine Color Urine Clarity Urine pH Ur Specific [place] Urine Protein Urine Glucose (UA) Urine Ketones Urine Occult Blood Urine Nitrite Urine Bilirubin Urine Urobilinogen Ur Leukocyte Esterase Urine RBC Urine WBC Ur Squamous Epith Cells Urine Bacteria Urine Mucus MRSA (PCR) TB Test (QFT) Nil TB Test (QFT) Mitogen TB Test (QFT) Ag 1 TB Test (QFT) Ag 2 TB Test (QFT) TB Positive Criteria 01/26/19 01/27/19 01/27/19 23:15 05:28 05:28 WBC RBC Hgb Hct MCV MCH MCHC RDW RDW Differential Plt Count MPV Immature Gran % (Auto) Neut % (Auto) Lymph % (Auto) [place] % (Auto) Eos % (Auto) Baso % (Auto) Absolute Neuts (auto) Absolute Lymphs (auto) Total Counted ESR 10 Sodium 142 Potassium 3.8 Chloride 105 Carbon Dioxide 28.0 Anion Gap 9 BUN 14 Creatinine 0.71 Estim Creat Clear Calc 33.12 Est GFR (MDRD) Af Amer 101 Est GFR (MDRD) Non-Af 84 BUN/Creatinine Ratio 19.8 Glucose 92 Calcium 8.5 Total Bilirubin AST ALT Alkaline Phosphatase Total Creatine Kinase Troponin I C-React Prot Ext Range Total Protein Albumin Globulin Albumin/Globulin Ratio Vitamin B12 TSH Urine Color Urine Clarity Urine pH Ur Specific [place] Urine Protein Urine Glucose (UA) Urine Ketones Urine Occult Blood Urine Nitrite Urine Bilirubin Urine Urobilinogen Ur Leukocyte Esterase Urine RBC Urine WBC Ur Squamous Epith Cells Urine Bacteria Urine Mucus MRSA (PCR) Negative TB Test (QFT) Nil TB Test (QFT) Mitogen TB Test (QFT) Ag 1 TB Test (QFT) Ag 2 TB Test (QFT) TB Positive Criteria 01/27/19 01/27/19 05:28 06:06 WBC RBC Hgb Hct MCV MCH MCHC RDW RDW Differential Plt Count MPV Immature Gran % (Auto) Neut % (Auto) Lymph % (Auto) [place] % (Auto) Eos % (Auto) Baso % (Auto) Absolute Neuts (auto) Absolute Lymphs (auto) Total Counted ESR Sodium Potassium Chloride Carbon Dioxide Anion Gap BUN Creatinine Estim Creat Clear Calc Est GFR (MDRD) Af Amer Est GFR (MDRD) Non-Af BUN/Creatinine Ratio Glucose Calcium Total Bilirubin AST ALT Alkaline Phosphatase Total Creatine Kinase Troponin I C-React Prot Ext Range 7.77 H Total Protein Albumin Globulin Albumin/Globulin Ratio Vitamin B12 TSH Urine Color Urine Clarity Urine pH Ur Specific [place] Urine Protein Urine Glucose (UA) Urine Ketones Urine Occult Blood Urine Nitrite Urine Bilirubin Urine Urobilinogen Ur Leukocyte Esterase Urine RBC Urine WBC Ur Squamous Epith Cells Urine Bacteria Urine Mucus MRSA (PCR) TB Test (QFT) Nil Pending TB Test (QFT) Mitogen Pending TB Test (QFT) Ag 1 Pending TB Test (QFT) Ag 2 Pending TB Test (QFT) Pending TB Positive Criteria Pending Microbiology 01/27/19 05:45 Urine, Clean Catch Legionella Antigen - Final 01/27/19 05:45 Urine, Clean Catch Streptococcus pneumoniae Antigen (M - Final Clinical Impression(s) from Imaging Studies Chest CT 01/26/19 16:36 IMPRESSION: 1. A 3.3 x 2.3 cm cavitary lesion in the right lower lobe is consistent with either malignancy or cavitary pneumonia. If clinical findings suggest pneumonia, short interval follow-up is advised after a course of antibiotic therapy to document regression/resolution. Otherwise, consider percutaneous biopsy. 2. 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 3. Chronic findings are detailed above. Electronically Signed: Shirley Sanchez MD at 18:09 EST Tel , Service support , Medical Necessity - Tobacco Use Smoking Status: Never smoker Assessment/Plan All Active Problems Delirium (Acute) Cavitary pneumonia (Acute) RECOMMENDATIONS: 1. QuantiFERON currently in process. Sputum for AFB x3 currently pending. 2. Antibiotics can be discontinued from my perspective. 3. Consider scheduling percutaneous lung biopsy for the end of the week. 4. MRI pending. IMPRESSIONS: 1. Abnormal chest imaging The etiology and chronicity of the patient's cavitary lung lesion is unknown. She does not have any overt risk factors for tuberculosis or fungal pneumonia. Although, the reliability of the patient's history is somewhat questionable given her impaired mentation. She is currently amidst a workup for TB. QuantiFERON is pending as well as sputum for AFB. However, the patient does not currently endorse any signs or symptoms of a systemic infection. She has no evidence of a fever or elevated white count. She denies the presence of a cough and shortness of breath. I do feel that once infectious etiologies, like TB are ruled out, that the patient be considered for percutaneous lung biopsy. We will continue to follow. 2. Altered mentation Considerations include acute delirium versus chronic underlying dementia with progression. MRI to be completed today. 3. Hypertension Continue home medications as indicated. This note was generated with [employer] dictation software. It may contain incorrect words, spelling, and punctuation that were not noted in checking the note before signing. Code Visit Inpatient E&M: 93531 Subs Hosp L2
--- NOTE | 2019-01-28 08:20 | CPS ---
Pt is mildly confused but was able to expectorate for sputum sample.
[2019-01-28] MEDS: Losartan Potassium 100 MG Tablet PO (09:21)
--- NOTE | 2019-01-28 12:00 | MRI_ITS ---
STUDY: MRI BRAIN WITHOUT CONTRAST REASON FOR EXAM: Female, 83 years old. Confusion TECHNIQUE: Standardized multiplanar fat and water weighted pulse sequences were obtained. COMPARISON: 01/20/2019 CT FINDINGS: Normal size of the ventricles and extra-axial spaces for the patient's age. There are multiple white matter hyperintensities, distributed throughout the deep white matter tracts of the cerebral hemispheres, consistent with moderate chronic white matter ischemic changes. Normal bilateral basal ganglia. Remote ischemic changes in the left thalamus. There is no extra-axial fluid accumulation. Normal flow voids within the major intracranial circulation suggesting patency by spin echo criteria. Normal sella turcica, pituitary gland, infundibular stalk, optic chiasm and hypothalamus. Normal tectal plate and pineal gland. Normal midbrain, kristen and medulla. 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 Normal basal cisterns. Normal bilateral temporal bones. Normal bilateral internal auditory canals. There are bilateral ocular lens implants with otherwise normal intraorbital contents. Normal visualized paranasal sinuses. Left mastoid sinus disease. Normal visualized soft tissue structures. Normal visualized upper cervical spine. MRI/Brain without Contrast IMPRESSION: No evidence of acute infarct or hemorrhage. 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 Electronically Signed: oM Kim MD at 13:10 EST Tel , Service support ,
[2019-01-28] MEDS: Piperacil/Tazobactam 3.375 GM Q8 PREMIX IV (13:10)
--- NOTE | 2019-01-28 18:48 | RAD_ITS ---
STUDY: X-RAY - LEFT HIP REASON FOR EXAM: Female, 83 years old. Fall TECHNIQUE: 3 views of the hip. COMPARISON: None. FINDINGS: Normal femoral head, neck, intertrochanteric region and visualized proximal femur. Normal acetabulum. Normal hip joint. Normal visualized superior and inferior pubic rami and ischial tuberosities. RAD/HIP, UNI W/ Pelvis 2-3 Views IMPRESSION: No acute bony injury of the hip. Electronically Signed: Jacob Ramirez DO at 21:24 EST Tel [phone], Service support ,
--- NOTE | 2019-01-28 18:50 | PN_ITS ---
Patient Problems: Active and Suspected Problems Delirium (Acute) Cavitary pneumonia (Acute) Subjective: All events of the past 24 hours of been reviewed. She has been afebrile since admission. Systolic blood pressures are not well controlled. Is 98% saturated on room air with a respiratory rate of 16. She was able to take 860 cc orally today. So far respiratory has only been able to obtain one sputum that was obtained this morning. The QuantiFERON is still pending. Brain MRI was done but, there is no report She remains pleasant and confused. He son tells me that she has been tried on medication for dementia in the past and did not tolerate. Tells me that she has lost weight but it has been very gradual. She is not a good eater. Today she is c/o pain in the left hip and she is unable to lift it off the bed very far......yesterday she was able to lift it very well. She fell getting out of the shower prior to admission Objective: - Physical Exam General: Alert, Cooperative, Well developed, Well nourished, Confused, Disoriented - she is oriented to person and she can tell me that she is at [facility] but she can not tell me the month, the year or the day of the week. She recognizes her sons and knows there name......she is asking them which one of her legs hurts HEENT: Atraumatic, PERRLA, EOMI, Normocephalic Oral: Dry Mucosa Neck: Supple, No JVD, Negative Carotid Bruits, No Nodes, No Nuchal Rigidity, Trachea Midline Lungs: Clear to auscultation - anterior and lateral Cardiovascular: Regular rate, Regular Rhythm, Normal S1, Normal S2, No murmurs, No rub noted, No Gallop Abdomen: Bowel Sounds Present, Soft, Non Tender, Non-Distended, - - No guarding with palpation Extremities: No clubbing, No cyanosis, No edema, No Calf Tenderness, the left LE is not shortened or externally rotated Skin: No rashes, No breakdown Lymphatic: - - No supraclavicular or cervical adenopathy Neurological: Cranial nerves II-XII grossly intact, Neuro grossly intact. Not able to lift the left leg off the bed as well as she did yesterday.......tells me that it hurts - Physical Exam Vital Signs Temp Pulse Resp BP Pulse Ox 97 F L 82 16 164/78 H 98 01/28/19 13:20 01/28/19 15:32 01/28/19 13:20 01/28/19 13:20 01/28/19 13:20 Oxygen Delivery Method Room Air Weight: 126 lb 12.253 oz Body Mass Index (BMI) 22.8 Intake and Output for Last 24 Hours 01/26/19 01/27/19 01/28/19 23:59 23:59 23:59 Intake Total 732 / 732 860 / 860 Balance 732 / 732 860 / 860 Microbiology Past 72 Hours 01/27/19 05:45 Legionella Antigen - Final Urine, Clean Catch Streptococcus pneumoniae Antigen (M - Final Medical Necessity - Tobacco Use Smoking Status: Never smoker Assessment/Plan All Active Problems Delirium (Acute) Cavitary pneumonia (Acute) Impressions 1. acute delirium vs chronic dementia exacerbated by possible infection? 2. Cavitary lesion of the right lung with other nodules that are not cavitating in the right lung - lifelong non-smoker 3. Hypertension 4. 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 pain in the left hip - had a fall out of the shower prior to admission The ESR is only 10 and the CRP is only mildly elevated at 7.77. She has no obvious signs of infection, is not anemic and does not appear acutely ill. I am doubtful that this mass is going to be of infectious etiology. Only 1 sputum has been collected ....RT will try again tomorrow. If the Quantiferon is negative or she has 3 negative sputums will go ahead with CT guided bx of the mass Await the report on the MRI of the brain Quanteferon and sputum cultures and AFB stains ordered Appreciate Dr. Correia's consult PRN Hall if she gets agitated Xray the left hip Code Visit Inpatient E&M: 86478 Subs Hosp L2
[2019-01-28] MEDS: guaiFENesin 1,200 MG Tablet 1200 MG PO (22:23)
[2019-01-29] VITALS (20 sets, daily range): BP systolic 142–235; BP diastolic 67–120; PULSE 75–97; RESP 16–25; TEMP 36.4–36.7; O2SAT 94–100
--- NOTE | 2019-01-29 | SPU_PTH ---
PATIENT: DIEGO ESTRADA LOC: [facility] U#:[id number] AGE/SX: 83/F ROOM: [facility] RE01/26/[address]: Dr. Darleen Webb DO : 1935 BED: 1 DIS: 01/30/2019 SPEC #: [id number] RECD: 01/29/19 12:32 STATUS: SHWETHA SARA #: [id number] RACHELE: 01/29/19 00:[address]: Darleen Webb DEPT: CYTOLOGY RECD BY: Benson Victoria ENTERED: 01/29/19 12:32 SP TYPE: Sputum Cy OTHR DR: DO Dr. Asaf Wheeler MD Dr. Tai Chi Kwok, MD Tissues: Sputum Procedures: PAS Fungus (control) Pap Stain (control) Special Stain Group II Special Stain Group I AFB Stain (control) Cytospin Fluid HEADER OPERATION: Not noted PRE-OP DIAGNOSIS: Cavitary pneumonitis TISSUE SUBMITTED: Sputum for cytology DIAGNOSIS CYTOLOGY Sputum for cytology (cytospin and smears): Negative for malignant cells. Special stain for acid fast bacilli is negative for organisms; matched control is appropriate. Special stain for fungi is positive for organisms (yeast and pseudohyphae) consistent with marga species; matched control is appropriate. See cytology study and comment. SJ:rg 01/30/19 COMMENT Clinical correlation and appropriate follow up are necessary. Please also make reference to previous cytology specimens ([id number] and [id number]), sputum for cytology and additional specimen ([id number]) right lung, CT guided core biopsy. CYTOLOGY STUDY Slides are reviewed. The specimen consists of numerous squamous cells, a few respiratory epithelial cells, rare macrophages, inflammatory cells and organisms consistent with bacteria. CYTOLOGY GROSS Received is 1 ml of thick cloudy labeled with the patient's name and and designated per the requisition as sputum. Submitted for cytology preparation. 01/29/19 TC:5 CPT: 16060, 38658 x2
--- NOTE | 2019-01-29 | ASPIGT_PTH ---
PATIENT: DIEGO ESTRADA LOC: [facility] U#:[id number] AGE/SX: 83/F ROOM: [facility] RE01/26/[address]: Dr. Darleen Webb DO : 1935 BED: 1 DIS: 01/30/2019 SPEC #: [id number] RECD: 01/29/19 14:05 STATUS: SHWETHA SARA #: [id number] RACHELE: 01/29/19 00:[address]: Darleen Webb DEPT: SURGICAL PATHOLOGY RECD BY: Te Benson ENTERED: 01/29/19 14:06 SP TYPE: ASP RAD OTHR DR: DO Dr. Asaf Wheeler MD Dr. Tai Chi Kwok, MD Tissues: Right lung, NOS Procedures: PAS Fungus (control) FNA Specimen Adequacy Special Stain Group II Special Stain Group I Surgery Specimen Level IV AFB Stain (control) Imprint (control) HEADER OPERATION: CT-guided right lung biopsy PRE-OP DIAGNOSIS: Right upper lobe pulmonary nodule TISSUE SUBMITTED: Right lung biopsy 20 gauge core MICROSCOPIC DIAGNOSIS Right upper lobe pulmonary nodule, CT-guided core biopsy: Scant fragment of lung parenchymal tissue, fibrous tissue with edematous changes, focal area of fibrinous and mucoid material and chronic inflammation. Negative for malignancy. Special stains for acid fast bacilli and fungi are negative for organisms; matched controls are appropriate. SJ:mireya 01/30/19 COMMENT The specimen is evaluated at the time of biopsy by Dr. Wiggins. Immediate Evaluation: Set #1 - Predominantly mucoid material. Negative for malignant cells. Set #2 - Mucoid material and neutrophils. Negative for malignant cells. Correlation with clinical, radiologic findings and appropriate follow up are necessary. This case is discussed with Dr. Correia on 01/30/19. Please also make reference to previous cytology specimens ([id number], [id number] and [id number]). MICROSCOPIC DESCRIPTION Slides are reviewed. GROSS DESCRIPTION Received in fixative is one container labeled with the patient's name and designated CT-guided right lung biopsy. The specimen consists of multiple irregular fragments of light reeves soft tissue that in aggregate measure 0.5 x <0.1 x <0.1 cm. Two touch imprints are prepared at the time of core biopsy. The entire specimen is submitted in one cassette. / ANTOINE:mireya 01/29/19 TC:5 CPT: 35536, 32188, 20940, 90726 x2
--- NOTE | 2019-01-29 05:55 | CT_ITS ---
PROCEDURE: CT GUIDED CORE NEEDLE BIOPSY OF A right upper lobe LUNG LESION INDICATION: Female, 83 years old. Right upper lobe pulmonary nodule. PHYSICIAN: Dr. Martinez. CONSENT: Written informed consent was obtained having explained the risks, benefits and alternatives in detail with the patient who accepted the risks and agreed to proceed. Laboratory review and clinical assessment was performed. CONSCIOUS SEDATION PROTOCOL: The Drugs used were: 1 mg Versed, IV., and 50 mcg Fentanyl, IV. The sedation time was: 35 minutes. . Conscious sedation was started at 1:05 PM and terminated at 1:40 PM. The conscious sedation protocol was independently monitored. RADIATION DOSAGE (If Supplied By Facility): CTDIvol = ( 16 ) mGy, DLP = ( 276.74 ) mGycm Individualized dose optimization techniques were used for this CT. TECHNIQUE: The patient was placed in the prone position. A noncontrast CT was performed to localize the lesion in the posterior right upper lobe . The skin surface was prepped and draped in a sterile fashion. 1% lidocaine was used for local anesthesia. Using CT guidance, a 20 age coaxial biopsy device was advanced to the periphery of the lesion. A total of 4 core specimens were obtained. The specimens were placed in a formalin solution. A post procedure CT demonstrated no adverse sequelae or pneumothorax. The patient tolerated the procedure well without adverse event. A negative biopsy does not exclude malignancy. Further imaging or clinical followup based on patient condition and degree of clinical suspicion for malignancy. Suggest rebiopsy, if biopsy results do not match with clinical scenario. CT/Biopsy/Inj or Needle Placement IMPRESSION: 1. CT directed core needle biopsy of the right upper lobe posterior nodule using CT image guidance with image documentation as described. Pathology results are pending. 2. Conscious Sedation protocol utilized with independent monitoring. Electronically Signed: Quirino Martinez, at 14:56 EST , Service support ,
[2019-01-29] MEDS: Sodium Chloride 3% 500 ML IV.SOLN. INHALATION ×3 (05:56→11:22)
--- NOTE | 2019-01-29 07:11 | PCM.PROGNOTE ---
Patient Problems: Active and Suspected Problems Delirium (Acute) Cavitary pneumonia (Acute) Subjective: The patient was seen and examined at the bedside this morning. Events from the last 24 hours have been reviewed. The patient is currently afebrile, hemodynamically stable and maintaining appropriate oxygen saturations on room air. I personally spoke with respiratory therapy this morning about the need to obtain 2 additional sputum for AFB. QuantiFERON remains in process. MRI report is still pending. Objective: The patient's most recent lab work, culture data and imaging studies have all been personally reviewed. Strep and urine Legionella antigens were both negative. Blood cultures are pending. Sputum for AFB is pending. - Physical Exam General: Alert, Cooperative, No apparent distress, Confused, Disoriented HEENT: Atraumatic, PERRLA, Normocephalic Oral: Dry Mucosa Neck: Supple, No Nodes, Trachea Midline Lungs: Normal air movement, No rhonchi, No wheeze, No rales Cardiovascular: Regular rate, Regular Rhythm, Normal S1, Normal S2, No murmurs Abdomen: Bowel Sounds Present, Soft, Non Tender, Non-Distended Extremities: No clubbing, No cyanosis, No edema Skin: No breakdown Musculoskeletal: No Tenderness to Palpation of Joints or Extremities Lymphatic: No Cervical, Supraclavicular, or Inguinal Adenopathy Neurological: Cranial nerves II-XII grossly intact, Neuro grossly intact Vital Signs Temp Pulse Resp BP Pulse Ox 36.7 C 88 18 163/83 H 98 01/29/19 04:19 01/29/19 05:56 01/29/19 05:56 01/29/19 04:19 01/29/19 04:19 Oxygen Delivery Method Room Air Weight: 126 lb 12.253 oz Body Mass Index (BMI) 22.8 Intake and Output for Last 24 Hours 01/27/19 01/28/19 01/29/19 23:59 23:59 23:59 Intake Total 732 / 732 1275 / 1275 72.6 / 72.6 Output Total 0 / 0 Balance 732 / 732 1275 / 1275 72.6 / 72.6 Microbiology Past 72 Hours 01/27/19 05:45 Legionella Antigen - Final Urine, Clean Catch Streptococcus pneumoniae Antigen (M - Final Labs (Last 48 Hours) 01/27/19 01/27/19 05:28 05:28 ESR 10 C-React Prot Ext Range 7.77 H Microbiology 01/27/19 05:45 Urine, Clean Catch Legionella Antigen - Final 01/27/19 05:45 Urine, Clean Catch Streptococcus pneumoniae Antigen (M - Final Clinical Impression(s) from Imaging Studies Chest CT 01/26/19 16:36 IMPRESSION: 1. A 3.3 x 2.3 cm cavitary lesion in the right lower lobe is consistent with either malignancy or cavitary pneumonia. If clinical findings suggest pneumonia, short interval follow-up is advised after a course of antibiotic therapy to document regression/resolution. Otherwise, consider percutaneous biopsy. 2. 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 3. Chronic findings are detailed above. Electronically Signed: Shirley Sanchez MD at 18:09 EST Tel , Service support , Hip/Pelvis X-Ray 01/28/19 18:48 IMPRESSION: No acute bony injury of the hip. Electronically Signed: Jacob Ramirez DO at 21:24 EST Tel [phone], Service support , Medical Necessity - Tobacco Use Smoking Status: Never smoker Assessment/Plan All Active Problems Delirium (Acute) Cavitary pneumonia (Acute) RECOMMENDATIONS: 1. QuantiFERON currently in process. Sputum for AFB x3 currently pending. 2. Antibiotics can be discontinued from my perspective. 3. Consider scheduling percutaneous lung biopsy for the end of the week. 4. MRI report pending. IMPRESSIONS: 1. Abnormal chest imaging The etiology and chronicity of the patient's cavitary lung lesion is unknown. She does not have any overt risk factors for tuberculosis or fungal pneumonia. Although, the reliability of the patient's history is somewhat questionable given her impaired mentation. She is currently amidst a workup for TB. QuantiFERON is pending as well as sputum for AFB. However, the patient does not currently endorse any signs or symptoms of a systemic infection. She has no evidence of a fever or elevated white count. She denies the presence of a cough and shortness of breath. I do feel that once infectious etiologies, like TB are ruled out, that the patient be considered for percutaneous lung biopsy. We will continue to follow. 2. Altered mentation Considerations include acute delirium versus chronic underlying dementia with progression. MRI report is pending. 3. Hypertension Continue home medications as indicated. This note was generated with [employer] dictation software. It may contain incorrect words, spelling, and punctuation that were not noted in checking the note before signing. Code Visit Inpatient E&M: 77880 Subs Hosp L2
--- NOTE | 2019-01-29 07:19 | PN_ITS ---
Patient Problems: Active and Suspected Problems Delirium (Acute) Cavitary pneumonia (Acute) Subjective: The patient was seen and examined at the bedside this morning. Events from the last 24 hours have been reviewed. The patient is currently afebrile, hemodynamically stable and maintaining appropriate oxygen saturations on room air. I personally spoke with respiratory therapy this morning about the need to obtain 2 additional sputum for AFB. QuantiFERON remains in process. MRI report is still pending. Objective: The patient's most recent lab work, culture data and imaging studies have all been personally reviewed. Strep and urine Legionella antigens were both negative. Blood cultures are pending. Sputum for AFB is pending. - Physical Exam General: Alert, Cooperative, No apparent distress, Confused, Disoriented HEENT: Atraumatic, PERRLA, Normocephalic Oral: Dry Mucosa Neck: Supple, No Nodes, Trachea Midline Lungs: Normal air movement, No rhonchi, No wheeze, No rales Cardiovascular: Regular rate, Regular Rhythm, Normal S1, Normal S2, No murmurs Abdomen: Bowel Sounds Present, Soft, Non Tender, Non-Distended Extremities: No clubbing, No cyanosis, No edema Skin: No breakdown Musculoskeletal: No Tenderness to Palpation of Joints or Extremities Lymphatic: No Cervical, Supraclavicular, or Inguinal Adenopathy Neurological: Cranial nerves II-XII grossly intact, Neuro grossly intact Vital Signs Temp Pulse Resp BP Pulse Ox 36.7 C 88 18 163/83 H 98 01/29/19 04:19 01/29/19 05:56 01/29/19 05:56 01/29/19 04:19 01/29/19 04:19 Oxygen Delivery Method Room Air Weight: 126 lb 12.253 oz Body Mass Index (BMI) 22.8 Intake and Output for Last 24 Hours 01/27/19 01/28/19 01/29/19 23:59 23:59 23:59 Intake Total 732 / 732 1275 / 1275 72.6 / 72.6 Output Total 0 / 0 Balance 732 / 732 1275 / 1275 72.6 / 72.6 Microbiology Past 72 Hours 01/27/19 05:45 Legionella Antigen - Final Urine, Clean Catch Streptococcus pneumoniae Antigen (M - Final Labs (Last 48 Hours) 01/27/19 01/27/19 05:28 05:28 ESR 10 C-React Prot Ext Range 7.77 H Microbiology 01/27/19 05:45 Urine, Clean Catch Legionella Antigen - Final 01/27/19 05:45 Urine, Clean Catch Streptococcus pneumoniae Antigen (M - Final Clinical Impression(s) from Imaging Studies Chest CT 01/26/19 16:36 IMPRESSION: 1. A 3.3 x 2.3 cm cavitary lesion in the right lower lobe is consistent with either malignancy or cavitary pneumonia. If clinical findings suggest pneumonia, short interval follow-up is advised after a course of antibiotic therapy to document regression/resolution. Otherwise, consider percutaneous biopsy. 2. 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 3. Chronic findings are detailed above. Electronically Signed: Shirley Sanchez MD at 18:09 EST Tel , Service support , Hip/Pelvis X-Ray 01/28/19 18:48 IMPRESSION: No acute bony injury of the hip. Electronically Signed: Jacob Ramirez DO at 21:24 EST Tel [phone], Service support , Medical Necessity - Tobacco Use Smoking Status: Never smoker Assessment/Plan All Active Problems Delirium (Acute) Cavitary pneumonia (Acute) RECOMMENDATIONS: 1. QuantiFERON currently in process. Sputum for AFB x3 currently pending. 2. Antibiotics can be discontinued from my perspective. 3. Consider scheduling percutaneous lung biopsy for the end of the week. 4. MRI report pending. IMPRESSIONS: 1. Abnormal chest imaging The etiology and chronicity of the patient's cavitary lung lesion is unknown. She does not have any overt risk factors for tuberculosis or fungal pneumonia. Although, the reliability of the patient's history is somewhat questionable given her impaired mentation. She is currently amidst a workup for TB. QuantiFERON is pending as well as sputum for AFB. However, the patient does not currently endorse any signs or symptoms of a systemic infection. She has no evidence of a fever or elevated white count. She denies the presence of a cough and shortness of breath. I do feel that once infectious etiologies, like TB are ruled out, that the patient be considered for percutaneous lung biopsy. We will continue to follow. 2. Altered mentation Considerations include acute delirium versus chronic underlying dementia with progression. MRI report is pending. 3. Hypertension Continue home medications as indicated. This note was generated with [employer] dictation software. It may contain incorrect words, spelling, and punctuation that were not noted in checking the note before signing. Code Visit Inpatient E&M: 77218 Subs Hosp L2
[2019-01-29 08:02] LABS: Acid Fast Stain SEE PATHOLOGY REPORT; Cytology, Body Fluid / CSF SEE PATHOLOGY REPORT
[2019-01-29 08:46] LABS: International Normalized Ratio 1.1; Prothrombin Time (Protime)PT. 13.6 SECONDS (11.7-14.9)
[2019-01-29 08:48] LABS: Partial Thromboplast Time 24.9 Seconds (24.1-36.2)
[2019-01-29 12:15] LABS: Acid Fast Stain SEE PATHOLOGY REPORT; Cytology, Body Fluid / CSF SEE PATHOLOGY REPORT
[2019-01-29] MEDS: Midazolam 2 MG/2 ML Syringe IV (13:03)
[2019-01-29] MEDS: fentaNYL 100 MCG/2 ML Ampul IV ×2 (13:05→13:20)
--- NOTE | 2019-01-29 13:31 | CASEMGMT ---
SW attempted to call son in regard to pt and discharge planning, as pt is still in TB precautions and as per the notes in the chart, is having confusion. Message left to call this SW back, SW will continue to follow. GIOVANNI Cooley, [employer]ER
--- NOTE | 2019-01-29 13:55 | RAD_ITS ---
STUDY: X-RAY CHEST REASON FOR EXAM: Female, 83 years old. Immediate postright lung biopsy radiograph. TECHNIQUE: Portable inspiration and expiration views. COMPARISON: Comparison is made with prior study dated January 20, 2019. FINDINGS: EKG electrodes are seen. There is an approximately 10% right apical pneumothorax on the immediate post lung biopsy radiograph. The patient is asymptomatic. RAD/Chest Insp/Exp 2 View IMPRESSION: 10% right apical pneumothorax on the immediate post right lung biopsy radiograph. The patient is asymptomatic. Electronically Signed: Quirino Martinez, at 14:57 EST , Service support ,
--- NOTE | 2019-01-29 14:23 | CASEMGMT ---
Pt's son Fili called back, SW spoke w/him in regard to pt, prior level of function and anticipated discharge plan. PCP: Dr. Lujan Specialists: None, saw a [facility] specialist in [place] in the past, but it's been 3-4 years since pt saw this doctor [facility]: [facility]. Pt is on one medication only, for blood pressure Insurance: Medicare/AARP Living Will/POA: [employer] is POA, forms not on chart. Pt has four sons. Fili states that the sons all want to be involved but he has told them he is POA and will make the decisions. Fili states he does let son Franck know what is going on since pt lives with him. Living arrangements: Pt lives w/son Franck, 3 steps into the home. Franck is an metal dealer so is in and out of the home Transportation: Pt does not drive much any more, pt's son's take pt to appointments DME/HHC: Uses a cane at baseline, no other DME, no O2, no history of HHC or SNF Prior level of function: Independent with personal ADL's, has a cleaning person, son cooks. Ton Penn takes pt to appointments, to [employer], to the grocery store and to the history department chair. Fili states that this is the extent of her outings. Pt has compression stockings but does not wear them. Ton Penn signed pt up for [employer] but pt will not participate, she tells Fili she is old. Pt's son Fili explains that pt has some forgetfulness at her baseline. He explains two years ago she had a UTI and got wacky, then last year had pneumonia and got wacky. Ton Penn states that Dr. Lujan said there is something underlying. He put pt on a memory pill but it made her hallucinate, then tried her on a different pill and it caused her to faint. Ton Penn describes pt as normally not bad at home, but she often will be talking, try to think of something and cannot, and says, oh, forget it. SW spoke w/Fili about discharge plan. Pt has not been to SNF in the past, if needed, son would likely agree to a referral to [facility]. SW explained we can check in w/him again tomorrow and if he would like we can send a referral to [facility]. Son states understanding. SW will follow up tomorrow. GIOVANNI Cooley, BOARDING HOUSE MANAGER
[2019-01-29] MEDS: guaiFENesin 1,200 MG Tablet 1200 MG PO ×2 (15:04→22:26)
[2019-01-29] MEDS: Losartan Potassium 100 MG Tablet PO (15:04)
[2019-01-29] MEDS: amLODIPine 5 MG Tablet PO (15:04)
--- NOTE | 2019-01-29 15:40 | RAD_ITS ---
STUDY: X-RAY CHEST REASON FOR EXAM: Female, 83 years old. 2 hour postright lung biopsy radiograph. TECHNIQUE: Portable inspiration expiration views. COMPARISON: Comparison is made with prior examination an earlier today at 1:55 PM. FINDINGS: Stable 10% right apical pneumothorax. The patient is asymptomatic. RAD/Chest Insp/Exp 2 View IMPRESSION: Stable 10% right apical pneumothorax. The patient is stable. Electronically Signed: Quirino Martinez, at 15:53 EST , Service support ,
[2019-01-29] MEDS: 0.9% NaCl Peripheral Flush Adult/Peds IV ×2 (17:04)
--- NOTE | 2019-01-29 19:12 | PCM.PROGNOTE ---
Patient Problems: Active and Suspected Problems Delirium (Acute) Cavitary pneumonia (Acute) Subjective: All events of the past 24 hours of been reviewed. Underwent CT-guided biopsy of the right lower lobe lung mass today. Postprocedure chest x-ray showed a 10% right pneumothorax in the apex and follow-up chest x-rays revealed this to be stable. Blood pressures are high she has been afebrile since admission. Heart rate is stable in the 80s. Quanteferon test is still pending. Have been to cytology reports and both are negative for malignant cells and the AFB stain was negative. Third is pending. Pain MRI showed no evidence of acute infarct or hemorrhage and there were stable remote infarcts with multiple white matter hyperintensities consistent with white matter ischemic changes. Objective: General: Alert, oriented to person, cooperative, pleasant Neck: Supple, trachea midline, no enlarged cervical nodes, no enlarged supraclavicular nodes Lungs: Clear to auscultation, symmetric chest expansion, not tachypneic, no conversational dyspnea, no accessory muscle use, denies CP Heart: Regular rate and rhythm, normal S1, normal S2, no murmur, no gallop, no rub Abdomen: Soft, NT, ND, bowel sounds present Extremities: No clubbing, no peripheral edema, no cyanosis....The XRAY of the left hip showed no fracture. the pt continues to c/o left hip pain. she is better able to lift the left leg off the bed today and does not appear to be in pain when she lifts the leg - Physical Exam Vital Signs Temp Pulse Resp BP Pulse Ox 97.6 F L 80 18 179/88 H 98 01/29/19 16:42 01/29/19 17:56 01/29/19 17:56 01/29/19 17:56 01/29/19 17:56 Oxygen Flow Rate (L/min) [7] 2 Oxygen Flow Rate (L/min) [6] 2 Oxygen Flow Rate (L/min) [5] 2 Oxygen Flow Rate (L/min) [4] 2 Oxygen Flow Rate (L/min) [2] 2 Oxygen Flow Rate (L/min) [1 ( 2 Initial Baseline)] Oxygen Flow Rate (L/min) 2 Oxygen Delivery Method [8] Nasal Cannula Oxygen Delivery Method [7] Nasal Cannula Oxygen Delivery Method [6] Nasal Cannula Oxygen Delivery Method [5] Nasal Cannula Oxygen Delivery Method [4] Nasal Cannula Oxygen Delivery Method [3] Nasal Cannula Oxygen Delivery Method [2] Nasal Cannula Oxygen Delivery Method [1 ( Nasal Cannula Initial Baseline)] Oxygen Delivery Method Nasal Cannula Weight: 126 lb 12.253 oz Body Mass Index (BMI) 22.8 Intake and Output for Last 24 Hours 01/27/19 01/28/19 01/29/19 23:59 23:59 23:59 Intake Total 732 / 732 1275 / 1275 743.6 / 743.6 Output Total 0 / 0 Balance 732 / 732 1275 / 1275 743.6 / 743.6 Microbiology Past 72 Hours 01/29/19 06:15 Gram Stain - Final Sputum, Expectorated/Coughed 01/26/19 21:10 Blood Culture - Preliminary Blood Culture (Wb) - Left Wrist No growth in 48 hours. 01/27/19 05:45 Legionella Antigen - Final Urine, Clean Catch Streptococcus pneumoniae Antigen (M - Final Laboratory Tests Past 24 Hrs 01/29/19 01/29/19 01/29/19 06:15 08:23 11:30 PT 13.6 INR 1.1 APTT 24.9 Acid Fast Stain Pending Pending Miscellaneous Cytology Pending Pending Medical Necessity - Tobacco Use Smoking Status: Never smoker Assessment/Plan All Active Problems Delirium (Acute) Cavitary pneumonia (Acute) Impressions 1. Dementia-Likely Alzheimer's type. B12 and TSH are within normal limits and the MRI of the brain is not consistent with multi-infarct dementia. 2. Cavitary lesion of the right lung with other nodules that are not cavitating in the right lung - lifelong non-smoker 3. Hypertension 4. 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 pain in the left hip - had a fall out of the shower prior to admission. Plain x-ray of the left hip shows no fracture. Patient was able to ambulate 80 feet with physical therapy. She just bruised herself. 7. 10% right apical pneumothorax following CT-guided biopsy of the right lower lobe mass. Continue PT/OT May need SNF at discharge-will discuss with her son Fili who is the power of assistant attorney general Met with the family and informed them that the path report will likely not be back till early next week. Recheck a PA and lateral chest x-ray in the a.m. Recheck lab in the a.m. Code Visit Inpatient E&M: 01561 Subs Hosp L2
[2019-01-29 20:28] LABS: QNTFERON TB Mitogen Value > 10.00 IU/mL (.); QNTFERON TB Nil Value 0.02 IU/mL (.); QNTFERON TB1+ Ag Value 0.03 IU/mL (.); QNTFERON TB2+ Ag Value 0.03 IU/mL (.)
[2019-01-29] MEDS: Bisacodyl 5 MG Tablet PO (22:26)
[2019-01-29] MEDS: Acetaminophen 325 MG Tablet 650 MG PO (23:43)
[2019-01-30] VITALS (8 sets, daily range): BP systolic 126–153; BP diastolic 67–75; PULSE 81–100; RESP 16–23; TEMP 36.4–36.7; O2SAT 96–98
--- NOTE | 2019-01-30 05:48 | NURSING ---
The 2200 dose of Zosyn was delayed in finishing d/t the pt IV going bad and the IV needed to be restarted. This RN contacted pharmacy and pharmacy recommended starting the 0600 Zosyn at 0800 this morning.
--- NOTE | 2019-01-30 05:55 | RAD_ITS ---
STUDY: X-RAY CHEST REASON FOR EXAM: Female, 83 years old. Follow-up for pneumothorax. TECHNIQUE: PA and lateral views of the chest. COMPARISON: Comparison is made with prior examination dated January 29, 2019 at 3:33 PM. FINDINGS: EKG electrodes are seen. The patient is status post right lung biopsy. Small residual right apical pneumothorax although this has improved as compared to prior examination. RAD/Chest PA and Lateral IMPRESSION: Since prior study, there has been a decrease in the right pneumothorax. Electronically Signed: Quirino Martinez, at 10:44 EST , Service support ,
--- NOTE | 2019-01-30 07:24 | PN_ITS ---
Subjective: The patient was seen and examined at the bedside this morning. Events from the last 24 hours have been reviewed. The patient is currently afebrile, hemodynamically stable and maintaining appropriate oxygen saturations on 2 L/min via nasal cannula. The patient did undergo percutaneous CT-guided lung biopsy yesterday. She did develop a small iatrogenic apical pneumothorax as a consequence. I did speak with pathology this morning and the preliminary on the patient's lung biopsy was negative for malignancy. The final pathology report is still pending, however. Objective: The patient's most recent lab work, culture data and imaging studies have all been personally reviewed. Blood cultures have shown no growth to date. Strep and urine Legionella antigens were both negative. Sputum for AFB have been negative. Sputum culture appears to be normal respiratory bj. The patient's QuantiFERON test remains in process. - Physical Exam General: Alert, Cooperative, No apparent distress, Confused HEENT: Atraumatic, PERRLA, Normocephalic Oral: No Gingival or Mucosal Lesions/ Ulcerations Neck: Supple, No Nodes, Trachea Midline Lungs: Normal air movement, No rhonchi, No wheeze, No rales Cardiovascular: Regular rate, Regular Rhythm, Normal S1, Normal S2, No murmurs Abdomen: Bowel Sounds Present, Soft, Non Tender Extremities: No clubbing, No cyanosis, No edema Skin: No breakdown Musculoskeletal: No Tenderness to Palpation of Joints or Extremities Lymphatic: No Cervical, Supraclavicular, or Inguinal Adenopathy Neurological: Neuro grossly intact Vital Signs Temp Pulse Resp BP Pulse Ox 36.7 C 85 23 H 144/68 H 98 01/30/19 04:05 01/30/19 06:56 01/30/19 04:05 01/30/19 04:05 01/30/19 04:05 Oxygen Flow Rate (L/min) [7] 2 Oxygen Flow Rate (L/min) [6] 2 Oxygen Flow Rate (L/min) [5] 2 Oxygen Flow Rate (L/min) [4] 2 Oxygen Flow Rate (L/min) [2] 2 Oxygen Flow Rate (L/min) [1 ( 2 Initial Baseline)] Oxygen Flow Rate (L/min) 2 Oxygen Delivery Method [8] Nasal Cannula Oxygen Delivery Method [7] Nasal Cannula Oxygen Delivery Method [6] Nasal Cannula Oxygen Delivery Method [5] Nasal Cannula Oxygen Delivery Method [4] Nasal Cannula Oxygen Delivery Method [3] Nasal Cannula Oxygen Delivery Method [2] Nasal Cannula Oxygen Delivery Method [1 ( Nasal Cannula Initial Baseline)] Oxygen Delivery Method Nasal Cannula Weight: 126 lb 12.253 oz Body Mass Index (BMI) 22.8 Intake and Output for Last 24 Hours 01/28/19 01/29/19 01/30/19 23:59 23:59 23:59 Intake Total 1275 / 1275 924.6 / 924.6 293.7 / 293.7 Output Total 0 / 0 Balance 1275 / 1275 924.6 / 924.6 293.7 / 293.7 Microbiology Past 72 Hours 01/29/19 06:15 Gram Stain - Final Sputum, Expectorated/Coughed 01/26/19 21:10 Blood Culture - Preliminary Blood Culture (Wb) - Left Wrist No growth in 48 hours. 01/27/19 05:45 Legionella Antigen - Final Urine, Clean Catch Streptococcus pneumoniae Antigen (M - Final Laboratory Tests Past 24 Hrs 01/29/19 01/29/19 01/29/19 06:15 08:23 11:30 PT 13.6 INR 1.1 APTT 24.9 Acid Fast Stain Pending Pending Miscellaneous Cytology Pending Pending Clinical Impression(s) from Imaging Studies Chest CT 01/26/19 16:36 IMPRESSION: 1. A 3.3 x 2.3 cm cavitary lesion in the right lower lobe is consistent with either malignancy or cavitary pneumonia. If clinical findings suggest pneumonia, short interval follow-up is advised after a course of antibiotic therapy to document regression/resolution. Otherwise, consider percutaneous biopsy. 2. 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 3. Chronic findings are detailed above. Electronically Signed: Shirley Sanchez MD at 18:09 EST Tel , Service support , Brain MRI 01/28/19 12:00 IMPRESSION: No evidence of acute infarct or hemorrhage. 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 Electronically Signed: Mo Kim MD at 13:10 EST Tel , Service support , Hip/Pelvis X-Ray 01/28/19 18:48 IMPRESSION: No acute bony injury of the hip. Electronically Signed: Jacob Ramirez DO at 21:24 EST Tel [phone], Service support , Biopsy CT 01/29/19 05:55 IMPRESSION: 1. CT directed core needle biopsy of the right upper lobe posterior nodule using CT image guidance with image documentation as described. Pathology results are pending. 2. Conscious Sedation protocol utilized with independent monitoring. Electronically Signed: Quirino Martinez, at 14:56 EST , Service support , Chest X-Ray 01/29/19 13:55 IMPRESSION: 10% right apical pneumothorax on the immediate post right lung biopsy radiograph. The patient is asymptomatic. Electronically Signed: Quirino Martinez, at 14:57 EST , Service support , Chest X-Ray 01/29/19 15:40 IMPRESSION: Stable 10% right apical pneumothorax. The patient is stable. Electronically Signed: Quirino Michelle, at 15:53 EST , Service support , Medical Necessity - Tobacco Use Smoking Status: Never smoker Assessment/Plan All Active Problems Delirium (Ruled-out) Pulmonary cavitary lesion (Acute) RECOMMENDATIONS: 1. Await final pathology report from CT-guided lung biopsy. IMPRESSIONS: 1. Abnormal chest imaging The etiology and chronicity of the patient's cavitary lung lesion is unknown. She does not have any overt risk factors for tuberculosis or fungal pneumonia. Although, the reliability of the patient's history is somewhat questionable given her impaired mentation. The patient's TB workup was negative, including sputum for AFB and QuantiFERON testing. She has no evidence of a fever or elevated white count. She denies the presence of a cough and shortness of breath. The patient did undergo a percutaneous CT-guided lung biopsy, the final results of which are currently pending. 2. Altered mentation Considerations include acute delirium versus chronic underlying dementia with progression. MRI was largely unremarkable. 3. Hypertension Continue home medications as indicated. This note was generated with magnetic.ioation software. It may contain incorrect words, spelling, and punctuation that were not noted in checking the note before signing. Code Visit Inpatient E&M: 03628 Subs Hosp L2
[2019-01-30] MEDS: 0.9% NaCl Peripheral Flush Adult/Peds IV (07:45)
[2019-01-30 08:15] LABS: Absolute Lymphocyte Count 1.01 X10^3/ul (0.83-4.51); Basophil# 0.03 X10^3/uL; Basophil% 0.4 % (0-1); Eosinophil# 0.13 X10^3/uL; Eosinophils% 1.9 % (0-5); Hematocrit 46.7 % (37-47); Hemoglobin 14.7 g/dl (12.0-15.0); Lymphocyte # 1.01 X10^3/ul (4.0); Lymphocyte % 14.6 % (19-41); Mean Corp Hgb Conc 31.5 g/gl (32-36); Mean Corpuscular Hgb 29.2 pg (27.0-32.0); Mean Corpuscular Volume 92.8 fL (81-99); Mean Platelet Vol. 9.3 fl (6.2-12.0); Monocyte# 0.79 X10^3/uL; Monocyte% 11.4 % (0-10); Neutrophil # 4.95 X10^3/uL (2.7-7.7); Neutrophil % 71.6 % (47-70); Platelet Count 242 K/mm3 (150-450); RBC Distribution Width CV 13.6 % (11.6-14.6); RBC Distribution Width SD 44.5 fl (35.1-43.9); Red Blood Count 5.03 M/mm3 (4.2-5.4); White Blood Count 6.9 K/mm3 (4.4-11.0)
[2019-01-30 08:20] LABS: POSITIVE COUNT NO; POSITIVE DIFFERENTIAL NO; POSITIVE MORPHOLOGY NO
[2019-01-30 08:41] LABS: AST(SGOT) 25 U/L (15-37); Alanine Aminotransfer ALT/SGPT 22 U/L (13-56); Albumin, Serum 3.5 g/dL (3.2-5.0); Alkaline Phosphatase 88 U/L (45-117); Anion Gap 10 (5-15); BUN 26 mg/dL (7-18); BUN/Creat Ratio 28.6 RATIO (10-20); Calcium,Total 9.2 mg/dL (8.5-10.1); Chloride 104 mmol/L (98-107); Creatinine, Serum 0.91 mg/dL (0.55-1.02); EST Glomerular Filtration Rate 63 mL/min (>60); Est Glom Filt Rate - Afr Amer 76 mL/min (>60); Globulin 3.4 g/dL (2.2-4.2); Glucose 110 mg/dL (74-106); Magnesium 2.2 mg/dL (1.6-2.6); Phosphorus 3.5 mg/dL (2.5-4.9); Potassium 3.7 mmol/L (3.5-5.1); Protein, Total 6.9 g/dL (6.4-8.2); Sodium Level 140 mmol/L (136-145)
[2019-01-30] MEDS: Enoxaparin 40 MG/0.4 ML Syringe SC (10:02)
[2019-01-30] MEDS: Bisacodyl 5 MG Tablet PO (10:02)
[2019-01-30] MEDS: Losartan Potassium 100 MG Tablet PO (10:02)
[2019-01-30] MEDS: Acetaminophen 325 MG Tablet 650 MG PO (10:02)
[2019-01-30] MEDS: amLODIPine 5 MG Tablet PO (10:02)
[2019-01-30] MEDS: guaiFENesin 1,200 MG Tablet 1200 MG PO (10:02)
[2019-01-30 10:04] LABS: QNTIFERON TB Positive Criteria Negative (Negative)
--- NOTE | 2019-01-30 11:10 | PN_ITS ---
Patient Problems: Active and Suspected Problems Delirium (Acute) Cavitary pneumonia (Acute) Subjective: All events of the past 24 hours been reviewed. Chest x-ray today continues to show a small right apical pneumothorax, some decrease in size since yesterday She remains afebrile Vital signs are stable and the blood pressure is improved adjustment in antihypertensives. Current blood pressure is 126/67. White blood cell count is 6.9 with an unremarkable differential. Preliminary report on the cytology from the lung biopsy is no malignant cells, the final is still pending - Physical Exam Vital Signs Temp Pulse Resp BP Pulse Ox 97.9 F 95 16 126/67 H 97 01/30/19 10:00 01/30/19 10:00 01/30/19 10:00 01/30/19 10:00 01/30/19 10:00 Oxygen Flow Rate (L/min) [7] 2 Oxygen Flow Rate (L/min) [6] 2 Oxygen Flow Rate (L/min) [5] 2 Oxygen Flow Rate (L/min) [4] 2 Oxygen Flow Rate (L/min) [2] 2 Oxygen Flow Rate (L/min) [1 ( 2 Initial Baseline)] Oxygen Flow Rate (L/min) 2 Oxygen Delivery Method [8] Nasal Cannula Oxygen Delivery Method [7] Nasal Cannula Oxygen Delivery Method [6] Nasal Cannula Oxygen Delivery Method [5] Nasal Cannula Oxygen Delivery Method [4] Nasal Cannula Oxygen Delivery Method [3] Nasal Cannula Oxygen Delivery Method [2] Nasal Cannula Oxygen Delivery Method [1 ( Nasal Cannula Initial Baseline)] Oxygen Delivery Method Room Air Weight: 126 lb 12.253 oz Body Mass Index (BMI) 22.8 Intake and Output for Last 24 Hours 01/28/19 01/29/19 01/30/19 23:59 23:59 23:59 Intake Total 1275 / 1275 924.6 / 924.6 293.7 / 293.7 Output Total 0 / 0 Balance 1275 / 1275 924.6 / 924.6 293.7 / 293.7 Microbiology Past 72 Hours 01/29/19 06:15 Gram Stain - Final Sputum, Expectorated/Coughed Respiratory Culture - Preliminary Appears to be normal respiratory bj. Further studies to follow. 01/26/19 21:10 Blood Culture - Preliminary Blood Culture (Wb) - Left Wrist No growth in 48 hours. 01/27/19 05:45 Legionella Antigen - Final Urine, Clean Catch Streptococcus pneumoniae Antigen (M - Final Laboratory Tests Past 24 Hrs 01/27/19 01/29/19 01/29/19 06:06 06:15 11:30 WBC RBC Hgb Hct MCV MCH MCHC RDW RDW Differential Plt Count MPV Immature Gran % (Auto) Neut % (Auto) Lymph % (Auto) [place] % (Auto) Eos % (Auto) Baso % (Auto) Absolute Neuts (auto) Absolute Lymphs (auto) Total Counted Sodium Potassium Chloride Carbon Dioxide Anion Gap BUN Creatinine Estim Creat Clear Calc Est GFR (MDRD) Af Amer Est GFR (MDRD) Non-Af BUN/Creatinine Ratio Glucose Calcium Phosphorus Magnesium Total Bilirubin AST ALT Alkaline Phosphatase Total Protein Albumin Globulin Albumin/Globulin Ratio Acid Fast Stain SEE PATHOLOGY REPORT SEE PATHOLOGY REPORT TB Test (QFT) Nil 0.02 TB Test (QFT) Mitogen > 10.00 TB Test (QFT) Ag 1 0.03 TB Test (QFT) Ag 2 0.03 TB Test (QFT) Comment TB Positive Criteria Negative Miscellaneous Cytology SEE PATHOLOGY REPORT SEE PATHOLOGY REPORT 01/30/19 01/30/19 08:06 08:06 WBC 6.9 RBC 5.03 Hgb 14.7 Hct 46.7 MCV 92.8 MCH 29.2 MCHC 31.5 L RDW 13.6 RDW Differential 44.5 H Plt Count 242 MPV 9.3 Immature Gran % (Auto) 0.100 Neut % (Auto) 71.6 H Lymph % (Auto) 14.6 L [place] % (Auto) 11.4 H Eos % (Auto) 1.9 Baso % (Auto) 0.4 Absolute Neuts (auto) 5.0 Absolute Lymphs (auto) 1.01 Total Counted Not Reportable Sodium 140 Potassium 3.7 Chloride 104 Carbon Dioxide 26.0 Anion Gap 10 BUN 26 H Creatinine 0.91 Estim Creat Clear Calc 36.40 Est GFR (MDRD) Af Amer 76 Est GFR (MDRD) Non-Af 63 BUN/Creatinine Ratio 28.6 H Glucose 110 H Calcium 9.2 Phosphorus 3.5 Magnesium 2.2 Total Bilirubin 0.80 AST 25 ALT 22 Alkaline Phosphatase 88 Total Protein 6.9 Albumin 3.5 Globulin 3.4 Albumin/Globulin Ratio 1.0 Acid Fast Stain TB Test (QFT) Nil TB Test (QFT) Mitogen TB Test (QFT) Ag 1 TB Test (QFT) Ag 2 TB Test (QFT) TB Positive Criteria Miscellaneous Cytology Medical Necessity - Tobacco Use Smoking Status: Never smoker Assessment/Plan All Active Problems Delirium (Acute) Cavitary pneumonia (Acute)
--- NOTE | 2019-01-30 12:46 | CASEMGMT ---
EMI called patient's son Fili and left him a voice mail inquiring if he would still like [facility] for d/c. Await return call. Simi KUHN
--- NOTE | 2019-01-30 13:19 | CASEMGMT ---
Received phone call from patient's son Fili. He would like patient to go to [facility] for rehab. EMI explained Medicare coverage for SNF and that she has her qualifying stay. EMI told him physician is going to discharge her today. He had some medical questions. EMI told him that SW can see if physician can call him or when he comes in he can ask to talk with her. He said if patient is discharged today he could transport her. EMI let physician know above. EMI called Gregoria at [facility] with referral and EMI also faxed referral. Await their response. Simi DOYLE MSW
--- NOTE | 2019-01-30 15:14 | CASEMGMT ---
Addendum entered by Simi Merino 01/30/19 15:28: Patient's son did not have any luck with [facility]. He said they told him the same thing they told SW. He said SW could send a referral to [facility]. SW faxed a referral and also called with referral. Await response from [facility]. Simi KUHN Original Note: SW received a call from Gregoria at [facility] and they are concerned about taking patient on a Saturday night due to her confusion. EMI explained there have been no issues with patient's confusion and she is nowhere near the nurses [facility]. She said they could look at it again on Saturday. EMI let patient's son know this information and he said he may call [facility]. He will let SW know. Simi KUHN
--- NOTE | 2019-01-30 16:24 | CASEMGMT ---
EMI spoke with Brandi at [facility] and they can accept patient. SW let her know it will probably be today and if not it would be tomorrow. Completed convalescent on H[facility]. EMI let patient and her son know [facility] has accepted. Patient's son will transport her via private vehicle. RN and church secretary also notified. Green sheet on chart with instructions for staff. Plan: d/c to [facility] under skilled level of care on a convalescent stay. Patient's son to transport. Simi DOYLE MSW
--- NOTE | 2019-01-30 17:25 | PCM.TXEXTCAR ---
- Diet 01/26/19 20:25 Diet: Regular Food consistency:: Regular Liquid Consistency:: Regular/Thin - Routine Orders/Code Status Enema Type: Fleetz Enema Frequency: Daily PRN Suppository Type: Dulcolax 10mg Suppository Frequency: Daily PRN - Wound(s) right middle of back Wound Type: surgical puncture from biopsy procedure - Therapies Weight Bearing: Full weight bearing Physical Therapy: Eval and Treat Occupational Therapy: Eval and Treat - Problem/Diagnosis (1) Descending aortic aneurysm Status: Chronic Comment: 3.4 cm in January 2019 Current Visit: Yes (2) Duodenal diverticulum Status: Chronic Comment: Large Current Visit: Yes (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 Comment: 4 mm January 2019 and right renal hilum Current Visit: Yes (4) Delirium Status: Ruled-out Current Visit: Yes (5) Hypertension Status: Chronic Current Visit: Yes (6) Pulmonary cavitary lesion Status: Acute Comment: AFB's negative and Quantiferon Gold also negative Current Visit: Yes (7) Dementia Status: Chronic Current Visit: Yes - Allergies/Procedures Done in Hospital Allergies/Adverse Reactions: Allergies Sulfa (Sulfonamide Antibiotics) Allergy (Verified 01/26/19 14:04) Hives Procedures: - - Percutaneous right lung biopsy - Type of Care/Length of Stay Estimated LOS: Convalescent Care Less Than 30 days Type of Care Needed: Skilled Rehab Potential: Fair Prognosis: Fair - Additional Orders/Day of Discharge Additional Orders: Call the lab at [facility] on Saturday or Saturday for the results of the R lung bx H&P will serve as current which was dated: 02/23/19 Day of Discharge: 01/30/19 - Dietary and Speech Recommendations Dietitian Recommendations/Changes: Will order Ensure Enlive w/ medpass for increased nutrition if consumed. - Follow Up Care Primary Care Physician: Joon Lujan Chi, MD [Primary Care Provider] - Please follow up with your Primary Care Physician in: 1-2 weeks
--- NOTE | 2019-01-30 17:29 | TREXTCAR_ITS ---
- Diet 01/26/19 20:25 Diet: Regular Food consistency:: Regular Liquid Consistency:: Regular/Thin - Routine Orders/Code Status Enema Type: Fleetz Enema Frequency: Daily PRN Suppository Type: Dulcolax 10mg Suppository Frequency: Daily PRN - Wound(s) right middle of back Wound Type: surgical puncture from biopsy procedure - Therapies Weight Bearing: Full weight bearing Physical Therapy: Eval and Treat Occupational Therapy: Eval and Treat - Problem/Diagnosis (1) Descending aortic aneurysm Status: Chronic Comment: 3.4 cm in January 2019 Current Visit: Yes (2) Duodenal diverticulum Status: Chronic Comment: Large Current Visit: Yes (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 Comment: 4 mm January 2019 and right renal hilum Current Visit: Yes (4) Delirium Status: Ruled-out Current Visit: Yes (5) Hypertension Status: Chronic Current Visit: Yes (6) Pulmonary cavitary lesion Status: Acute Comment: AFB's negative and Quantiferon Gold also negative Cu rrent Visit: Yes (7) Dementia Status: Chronic Current Visit: Yes - Allergies/Procedures Done in Hospital Allergies/Adverse Reactions: Allergies Sulfa (Sulfonamide Antibiotics) Allergy (Verified 01/26/19 14:04) Hives Procedures: - - Percutaneous right lung biopsy - Type of Care/Length of Stay Estimated LOS: Convalescent Care Less Than 30 days Type of Care Needed: Skilled Rehab Potential: Fair Prognosis: Fair - Additional Orders/Day of Discharge Additional Orders: Call the lab at [facility] on Saturday or Saturday for the results of the R lung bx H&P will serve as current which was dated: 02/23/19 Day of Discharge: 01/30/19 - Dietary and Speech Recommendations Dietitian Recommendations/Changes: Will order Ensure Enlive w/ medpass for increased nutrition if consumed. - Follow Up Care Primary Care Physician: Joon Lujan Chi, MD [Primary Care Provider] - Please follow up with your Primary Care Physician in: 1-2 weeks
--- NOTE | 2019-01-30 17:35 | PCM.DC.SUM ---
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 A 3.3 x 2.3 cm cavitary lesion in the right lower lobe is consistent with either malignancy or cavitary pneumonia. If clinical findings suggest pneumonia, short interval follow-up is advised after a course of antibiotic therapy to document regression/resolution. Otherwise, consider percutaneous biopsy. 2. 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 3. Chronic findings are detailed above. Electronically Signed: Shirley Sanchez MD at 18:09 EST Tel , Service support , Brain MRI 01/28/19 12:00 IMPRESSION: No evidence of acute infarct or hemorrhage. 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 Electronically Signed: Mo Kim MD at 13:10 EST Tel , Service support , Hip/Pelvis X-Ray 01/28/19 18:48 IMPRESSION: No acute bony injury of the hip. Electronically Signed: Jacob Ramirez DO at 21:24 EST Tel [phone], Service support , Biopsy CT 01/29/19 05:55 IMPRESSION: 1. CT directed core needle biopsy of the right upper lobe posterior nodule using CT image guidance with image documentation as described. Pathology results are pending. 2. Conscious Sedation protocol utilized with independent monitoring. Electronically Signed: Quirino Pedersendaquan, at 14:56 EST , Service support , Chest X-Ray 01/29/19 13:55 IMPRESSION: 10% right apical pneumothorax on the immediate post right lung biopsy radiograph. The patient is asymptomatic. Electronically Signed: Quirino Anthonybety, at 14:57 EST , Service support , Chest X-Ray 01/29/19 15:40 IMPRESSION: Stable 10% right apical pneumothorax. The patient is stable. Electronically Signed: Quirino Anthonybety, at 15:53 EST , Service support , Chest X-Ray 01/30/19 05:55 IMPRESSION: Since prior study, there has been a decrease in the right pneumothorax. Electronically Signed: Quirino Pedersendaquan, at 10:44 EST , Service support , Laboratory Results - last 24 hr 01/27/19 01/29/19 01/29/19 06:06 06:15 11:30 WBC RBC Hgb Hct MCV MCH MCHC RDW RDW Differential Plt Count MPV Immature Gran % (Auto) Neut % (Auto) Lymph % (Auto) Mitchell % (Auto) Eos % (Auto) Baso % (Auto) Absolute Neuts (auto) Absolute Lymphs (auto) Total Counted Sodium Potassium Chloride Carbon Dioxide Anion Gap BUN Creatinine Estim Creat Clear Calc Est GFR (MDRD) Af Amer Est GFR (MDRD) Non-Af BUN/Creatinine Ratio Glucose Calcium Phosphorus Magnesium Total Bilirubin AST ALT Alkaline Phosphatase Total Protein Albumin Globulin Albumin/Globulin Ratio Acid Fast Stain SEE PATHOLOGY REPORT SEE PATHOLOGY REPORT TB Test (QFT) Nil 0.02 TB Test (QFT) Mitogen > 10.00 TB Test (QFT) Ag 1 0.03 TB Test (QFT) Ag 2 0.03 TB Test (QFT) Comment TB Positive Criteria Negative Miscellaneous Cytology SEE PATHOLOGY REPORT SEE PATHOLOGY REPORT 01/30/19 01/30/19 08:06 08:06 WBC 6.9 RBC 5.03 Hgb 14.7 Hct 46.7 MCV 92.8 MCH 29.2 MCHC 31.5 L RDW 13.6 RDW Differential 44.5 H Plt Count 242 MPV 9.3 Immature Gran % (Auto) 0.100 Neut % (Auto) 71.6 H Lymph % (Auto) 14.6 L Mitchell % (Auto) 11.4 H Eos % (Auto) 1.9 Baso % (Auto) 0.4 Absolute Neuts (auto) 5.0 Absolute Lymphs (auto) 1.01 Total Counted Not Reportable Sodium 140 Potassium 3.7 Chloride 104 Carbon Dioxide 26.0 Anion Gap 10 BUN 26 H Creatinine 0.91 Estim Creat Clear Calc 36.40 Est GFR (MDRD) Af Amer 76 Est GFR (MDRD) Non-Af 63 BUN/Creatinine Ratio 28.6 H Glucose 110 H Calcium 9.2 Phosphorus 3.5 Magnesium 2.2 Total Bilirubin 0.80 AST 25 ALT 22 Alkaline Phosphatase 88 Total Protein 6.9 Albumin 3.5 Globulin 3.4 Albumin/Globulin Ratio 1.0 Acid Fast Stain TB Test (QFT) Nil TB Test (QFT) Mitogen TB Test (QFT) Ag 1 TB Test (QFT) Ag 2 TB Test (QFT) TB Positive Criteria Miscellaneous Cytology Microbiology 01/29/19 06:15 Sputum, Expectorated/Coughed Gram Stain - Final 01/29/19 06:15 Sputum, Expectorated/Coughed Respiratory Culture - Preliminary Appears to be normal respiratory bj. Further studies to follow. 01/26/19 21:10 Blood Culture (Wb) - Left Wrist Blood Culture - Preliminary No growth in 48 hours. 01/27/19 05:45 Urine, Clean Catch Legionella Antigen - Final 01/27/19 05:45 Urine, Clean Catch Streptococcus pneumoniae Antigen (M - Final Dr. Srini Correia-pulmonary medicine Operations: None Procedures: - - Percutaneous right lung biopsy Summary of Care Provided: The patient is a 83-year-old female with a past medical history of hypertension who was brought to the emergency department at [facility] on 01/26/2019 with complaint of increased confusion present for about 1 week. She also had a fall 1 day prior to being brought to the ED. Reportedly she had an OP CXR that showed a possible lung mass. A brain CT showed chronic involutional changes of the brain. She had been seen in the office by Dr. Lujan for delirium on 01/20. She has been tried on a few different medications for dementia in the past and was intolerant of the side effects. Vital signs at presentation to the emergency room were temperature 98.2, heart rate 102, blood pressure 176/97, respiratory rate 17 and she was 96-99% saturated on room air. White blood cell count was 7.7 with an unremarkable differential. Hemoglobin and platelets were within normal limits. BMP was normal. LFTs were normal. Troponin was less than 0.015. TSH was normal at 0.9 and the B12 was also normal at 513. UA had 0 WBCs. MRSA screen was negative. CT scan of the chest showed a 3.3 x 2.3 x 1.7 cm cavitary lesion in the superior segment of the right lower lobe. 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 There was a large duodenal diverticulum. She was admitted to the hospital to be evaluated for the cavitary mass. She was placed in isolation and sputums for AFB and culture were ordered. A Quantiferon Gold was sent off and the results were negative for TB. We were only able to obtain 2 sputum's, even with induction, and the AFB on both samples was negative. She has had no sudden weight loss, no night sweats, no hemoptysis and she does not appear ill. She is not coughing. She has never been a smoker. Dr. Srini Correia from pulmonary medicine was consulted and recommended a percutaneous lung bx in radiology. The lung bx was done 01/29/2019 and the postprocedure chest x-ray showed a 10% right apical pneumothorax. Follow-up chest x-rays showed the pneumothorax to be stable and the patient was asymptomatic. She has been afebrile for the duration of her hospital stay. White blood cell count has remained within normal limits and the differential is unremarkable. The preliminary path report from the lung biopsy is negative for malignant cells but the final, is still pending. She is very forgetful and can not stay on topic. She confabulates when she can not answer a question or she looks to her family for the answer. 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 She complianed of left hip pain and since she fell prior to admission an XRAY was done and showed no fracture. She was seen by PT and OT and they felt she would benefit from further therapy for gait training, transfer training, activity tolerance exercises and therapeutic exercise. She is unable to care for herself and she needs 24 H supervision. She was discharged on 01/30/19 to the [facility] for PT/OT. She should follow up with Dr. Srini Correia in the office next week to discuss the final pathology report. She will follow up with Dr. Lujan in 1-2 weeks. The bx final should be back early next week. she has NO sx of TB and she has no signs or sx of PNA. During her admission the BP was markedly elevated and she was started on Amlodipine 5 mg daily which will be continued at NM along with Cozaar 100 mg daily. General: Alert, oriented to person, cooperative, pleasant Neck: Supple, trachea midline, no enlarged cervical nodes, no enlarged supraclavicular nodes Lungs: Clear to auscultation, symmetric chest expansion, not tachypneic, no conversational dyspnea, no accessory muscle use, denies CP Heart: Regular rate and rhythm, normal S1, normal S2, no murmur, no gallop, no rub Abdomen: Soft, NT, ND, bowel sounds present Extremities: No clubbing, no peripheral edema, no cyanosis....The XRAY of the left hip showed no fracture. the pt continues to c/o left hip pain. she is better able to lift the left leg off the bed today and does not appear to be in pain when she lifts the leg Patient Problems: Active and Suspected Problems Pulmonary cavitary lesion (Acute) AFB's negative and Quantiferon Gold also negative - Physical Exam Vital Signs Temp Pulse Resp BP Pulse Ox 97.6 F L 91 16 153/75 H 97 01/30/19 16:00 01/30/19 16:00 01/30/19 16:00 01/30/19 16:00 01/30/19 16:00 Oxygen Flow Rate (L/min) [7] 2 Oxygen Flow Rate (L/min) [6] 2 Oxygen Flow Rate (L/min) [5] 2 Oxygen Flow Rate (L/min) [4] 2 Oxygen Flow Rate (L/min) [2] 2 Oxygen Flow Rate (L/min) [1 ( 2 Initial Baseline)] Oxygen Flow Rate (L/min) 2 Oxygen Delivery Method [8] Nasal Cannula Oxygen Delivery Method [7] Nasal Cannula Oxygen Delivery Method [6] Nasal Cannula Oxygen Delivery Method [5] Nasal Cannula Oxygen Delivery Method [4] Nasal Cannula Oxygen Delivery Method [3] Nasal Cannula Oxygen Delivery Method [2] Nasal Cannula Oxygen Delivery Method [1 ( Nasal Cannula Initial Baseline)] Oxygen Delivery Method Room Air Weight: 126 lb 12.253 oz Body Mass Index (BMI) 22.8 Intake and Output for Last 24 Hours 01/28/19 01/29/19 01/30/19 23:59 23:59 23:59 Intake Total 1275 / 1275 924.6 / 924.6 611.9 / 611.9 Output Total 0 / 0 Balance 1275 / 1275 924.6 / 924.6 611.9 / 611.9 Microbiology Past 72 Hours 01/29/19 06:15 Gram Stain - Final Sputum, Expectorated/Coughed Respiratory Culture - Preliminary Appears to be normal respiratory bj. Further studies to follow. 01/26/19 21:10 Blood Culture - Preliminary Blood Culture (Wb) - Left Wrist No growth in 48 hours. Laboratory Tests Past 24 Hrs 01/27/19 01/29/19 01/29/19 06:06 06:15 11:30 WBC RBC Hgb Hct MCV MCH MCHC RDW RDW Differential Plt Count MPV Immature Gran % (Auto) Neut % (Auto) Lymph % (Auto) Mitchell % (Auto) Eos % (Auto) Baso % (Auto) Absolute Neuts (auto) Absolute Lymphs (auto) Total Counted Sodium Potassium Chloride Carbon Dioxide Anion Gap BUN Creatinine Estim Creat Clear Calc Est GFR (MDRD) Af Amer Est GFR (MDRD) Non-Af BUN/Creatinine Ratio Glucose Calcium Phosphorus Magnesium Total Bilirubin AST ALT Alkaline Phosphatase Total Protein Albumin Globulin Albumin/Globulin Ratio Acid Fast Stain SEE PATHOLOGY REPORT SEE PATHOLOGY REPORT TB Test (QFT) Nil 0.02 TB Test (QFT) Mitogen > 10.00 TB Test (QFT) Ag 1 0.03 TB Test (QFT) Ag 2 0.03 TB Test (QFT) Comment TB Positive Criteria Negative Miscellaneous Cytology SEE PATHOLOGY REPORT SEE PATHOLOGY REPORT 01/30/19 01/30/19 08:06 08:06 WBC 6.9 RBC 5.03 Hgb 14.7 Hct 46.7 MCV 92.8 MCH 29.2 MCHC 31.5 L RDW 13.6 RDW Differential 44.5 H Plt Count 242 MPV 9.3 Immature Gran % (Auto) 0.100 Neut % (Auto) 71.6 H Lymph % (Auto) 14.6 L Mitchell % (Auto) 11.4 H Eos % (Auto) 1.9 Baso % (Auto) 0.4 Absolute Neuts (auto) 5.0 Absolute Lymphs (auto) 1.01 Total Counted Not Reportable Sodium 140 Potassium 3.7 Chloride 104 Carbon Dioxide 26.0 Anion Gap 10 BUN 26 H Creatinine 0.91 Estim Creat Clear Calc 36.40 Est GFR (MDRD) Af Amer 76 Est GFR (MDRD) Non-Af 63 BUN/Creatinine Ratio 28.6 H Glucose 110 H Calcium 9.2 Phosphorus 3.5 Magnesium 2.2 Total Bilirubin 0.80 AST 25 ALT 22 Alkaline Phosphatase 88 Total Protein 6.9 Albumin 3.5 Globulin 3.4 Albumin/Globulin Ratio 1.0 Acid Fast Stain TB Test (QFT) Nil TB Test (QFT) Mitogen TB Test (QFT) Ag 1 TB Test (QFT) Ag 2 TB Test (QFT) TB Positive Criteria Miscellaneous Cytology Home Medications: Medications to take at Discharge Losartan Potassium 100 mg PO DAILY 01/26/19 Acetaminophen [Tylenol Tablet] 650 mg PO Q6H PRN PRN tablet 01/30/19 Amlodipine [Norvasc] 5 mg PO DAILY tablet 01/30/19 Magnesium Hydroxide [Milk Of Magnesia] 30 ml PO DAILY PRN PRN udc 01/30/19 Primary Care Physician: Joon Lujan Chi, MD [Primary Care Provider] - Please follow up with your Primary Care Physician in: 1-2 weeks Disposition: Senior Living facility Minutes spent on discharge:: 38 Patient Condition:: Stable Medical Necessity - Tobacco Use Smoking Status: Never smoker Tobacco Use: Non-smoker Meaningful Use Info Meaningful Use Diagnoses (Choose all that apply): None applicable Code Visit Inpatient E&M: 27753 Disch Hosp
--- NOTE | 2019-01-30 17:41 | DS.PCM_ITS ---
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 A 3.3 x 2.3 cm cavitary lesion in the right lower lobe is consistent with either malignancy or cavitary pneumonia. If clinical findings suggest pneumonia, short interval follow-up is advised after a course of antibiotic therapy to document regression/resolution. Otherwise, consider percutaneous biopsy. 2. 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 3. Chronic findings are detailed above. Electronically Signed: Shirley Sanchez MD at 18:09 EST Tel , Service support , Brain MRI 01/28/19 12:00 IMPRESSION: No evidence of acute infarct or hemorrhage. 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 Electronically Signed: Mo Kim MD at 13:10 EST Tel , Service support , Hip/Pelvis X-Ray 01/28/19 18:48 IMPRESSION: No acute bony injury of the hip. Electronically Signed: Jacob Ramirez DO at 21:24 EST Tel [phone], Service support , Biopsy CT 01/29/19 05:55 IMPRESSION: 1. CT directed core needle biopsy of the right upper lobe posterior nodule using CT image guidance with image documentation as described. Pathology results are pending. 2. Conscious Sedation protocol utilized with independent monitoring. Electronically Signed: Quirino Pedersendaquan, at 14:56 EST , Service support , Chest X-Ray 01/29/19 13:55 IMPRESSION: 10% right apical pneumothorax on the immediate post right lung biopsy radiograph. The patient is asymptomatic. Electronically Signed: Quirino Anthonybety, at 14:57 EST , Service support , Chest X-Ray 01/29/19 15:40 IMPRESSION: Stable 10% right apical pneumothorax. The patient is stable. Electronically Signed: Quirino Anthonybety, at 15:53 EST , Service support , Chest X-Ray 01/30/19 05:55 IMPRESSION: Since prior study, there has been a decrease in the right pneumothorax. Electronically Signed: Quirino Pedersendaquan, at 10:44 EST , Service support , Laboratory Results - last 24 hr 01/27/19 01/29/19 01/29/19 06:06 06:15 11:30 WBC RBC Hgb Hct MCV MCH MCHC RDW RDW Differential Plt Count MPV Immature Gran % (Auto) Neut % (Auto) Lymph % (Auto) [place] % (Auto) Eos % (Auto) Baso % (Auto) Absolute Neuts (auto) Absolute Lymphs (auto) Total Counted Sodium Potassium Chloride Carbon Dioxide Anion Gap BUN Creatinine Estim Creat Clear Calc Est GFR (MDRD) Af Amer Est GFR (MDRD) Non-Af BUN/Creatinine Ratio Glucose Calcium Phosphorus Magnesium Total Bilirubin AST ALT Alkaline Phosphatase Total Protein Albumin Globulin Albumin/Globulin Ratio Acid Fast Stain SEE PATHOLOGY REPORT SEE PATHOLOGY REPORT TB Test (QFT) Nil 0.02 TB Test (QFT) Mitogen > 10.00 TB Test (QFT) Ag 1 0.03 TB Test (QFT) Ag 2 0.03 TB Test (QFT) Comment TB Positive Criteria Negative Miscellaneous Cytology SEE PATHOLOGY REPORT SEE PATHOLOGY REPORT 01/30/19 01/30/19 08:06 08:06 WBC 6.9 RBC 5.03 Hgb 14.7 Hct 46.7 MCV 92.8 MCH 29.2 MCHC 31.5 L RDW 13.6 RDW Differential 44.5 H Plt Count 242 MPV 9.3 Immature Gran % (Auto) 0.100 Neut % (Auto) 71.6 H Lymph % (Auto) 14.6 L [place] % (Auto) 11.4 H Eos % (Auto) 1.9 Baso % (Auto) 0.4 Absolute Neuts (auto) 5.0 Absolute Lymphs (auto) 1.01 Total Counted Not Reportable Sodium 140 Potassium 3.7 Chloride 104 Carbon Dioxide 26.0 Anion Gap 10 BUN 26 H Creatinine 0.91 Estim Creat Clear Calc 36.40 Est GFR (MDRD) Af Amer 76 Est GFR (MDRD) Non-Af 63 BUN/Creatinine Ratio 28.6 H Glucose 110 H Calcium 9.2 Phosphorus 3.5 Magnesium 2.2 Total Bilirubin 0.80 AST 25 ALT 22 Alkaline Phosphatase 88 Total Protein 6.9 Albumin 3.5 Globulin 3.4 Albumin/Globulin Ratio 1.0 Acid Fast Stain TB Test (QFT) Nil TB Test (QFT) Mitogen TB Test (QFT) Ag 1 TB Test (QFT) Ag 2 TB Test (QFT) TB Positive Criteria Miscellaneous Cytology Microbiology 01/29/19 06:15 Sputum, Expectorated/Coughed Gram Stain - Final 01/29/19 06:15 Sputum, Expectorated/Coughed Respiratory Culture - Preliminary Appears to be normal respiratory bj. Further studies to follow. 01/26/19 21:10 Blood Culture (Wb) - Left Wrist Blood Culture - Preliminary No growth in 48 hours. 01/27/19 05:45 Urine, Clean Catch Legionella Antigen - Final 01/27/19 05:45 Urine, Clean Catch Streptococcus pneumoniae Antigen (M - Final Dr. Srini Correia-pulmonary medicine Operations: None Procedures: - - Percutaneous right lung biopsy Summary of Care Provided: The patient is a 83-year-old female with a past medical history of hypertension who was brought to the emergency department at [facility] on 01/26/2019 with complaint of increased confusion present for about 1 week. She also had a fall 1 day prior to being brought to the ED. Reportedly she had an OP CXR that showed a possible lung mass. A brain CT showed chronic involutional changes of the brain. She had been seen in the office by Dr. Lujan for delirium on 01/20. She has been tried on a few different medications for dementia in the past and was intolerant of the side effects. Vital signs at presentation to the emergency room were temperature 98.2, heart rate 102, blood pressure 176/97, respiratory rate 17 and she was 96-99% saturated on room air. White blood cell count was 7.7 with an unremarkable differential. Hemoglobin and platelets were within normal limits. BMP was normal. LFTs were normal. Troponin was less than 0.015. TSH was normal at 0.9 and the B12 was also normal at 513. UA had 0 WBCs. MRSA screen was negative. CT scan of the chest showed a 3.3 x 2.3 x 1.7 cm cavitary lesion in the superior segment of the right lower lobe. 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 There was a large duodenal diverticulum. She was admitted to the hospital to be evaluated for the cavitary mass. She was placed in isolation and sputums for AFB and culture were ordered. A Quantiferon Gold was sent off and the results were negative for TB. We were only able to obtain 2 sputum's, even with induction, and the AFB on both samples was negative. She has had no sudden weight loss, no night sweats, no hemoptysis and she does not appear ill. She is not coughing. She has never been a smoker. Dr. Srini Correia from pulmonary medicine was consulted and recommended a percutaneous lung bx in radiology. The lung bx was done 01/29/2019 and the postprocedure chest x-ray showed a 10% right apical pneumothorax. Follow-up chest x-rays showed the pneumothorax to be stable and the patient was asymptomatic. She has been afebrile for the duration of her hospital stay. White blood cell count has remained within normal limits and the differential is unremarkable. The preliminary path report from the lung biopsy is negative for malignant cells but the final, is still pending. She is very forgetful and can not stay on topic. She confabulates when she can not answer a question or she looks to her family for the answer. 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 She complianed of left hip pain and since she fell prior to admission an XRAY was done and showed no fracture. She was seen by PT and OT and they felt she would benefit from further therapy for gait training, transfer training, activity tolerance exercises and therapeutic exercise. She is unable to care for herself and she needs 24 H supervision. She was discharged on 01/30/19 to the [facility] for PT/OT. She should follow up with Dr. Srini Correia in the office next week to discuss the final pathology report. She will follow up with Dr. Lujan in 1-2 weeks. The bx final should be back early next week. she has NO sx of TB and she has no signs or sx of PNA. During her admission the BP was markedly elevated and she was started on Amlodipine 5 mg daily which will be continued at [place] along with Cozaar 100 mg daily. General: Alert, oriented to person, cooperative, pleasant Neck: Supple, trachea midline, no enlarged cervical nodes, no enlarged supraclavicular nodes Lungs: Clear to auscultation, symmetric chest expansion, not tachypneic, no conversational dyspnea, no accessory muscle use, denies CP Heart: Regular rate and rhythm, normal S1, normal S2, no murmur, no gallop, no rub Abdomen: Soft, NT, ND, bowel sounds present Extremities: No clubbing, no peripheral edema, no cyanosis....The XRAY of the left hip showed no fracture. the pt continues to c/o left hip pain. she is better able to lift the left leg off the bed today and does not appear to be in pain when she lifts the leg Patient Problems: Active and Suspected Problems Pulmonary cavitary lesion (Acute) AFB's negative and Quantiferon Gold also negative - Physical Exam Vital Signs Temp Pulse Resp BP Pulse Ox 97.6 F L 91 16 153/75 H 97 01/30/19 16:00 01/30/19 16:00 01/30/19 16:00 01/30/19 16:00 01/30/19 16:00 Oxygen Flow Rate (L/min) [7] 2 Oxygen Flow Rate (L/min) [6] 2 Oxygen Flow Rate (L/min) [5] 2 Oxygen Flow Rate (L/min) [4] 2 Oxygen Flow Rate (L/min) [2] 2 Oxygen Flow Rate (L/min) [1 ( 2 Initial Baseline)] Oxygen Flow Rate (L/min) 2 Oxygen Delivery Method [8] Nasal Cannula Oxygen Delivery Method [7] Nasal Cannula Oxygen Delivery Method [6] Nasal Cannula Oxygen Delivery Method [5] Nasal Cannula Oxygen Delivery Method [4] Nasal Cannula Oxygen Delivery Method [3] Nasal Cannula Oxygen Delivery Method [2] Nasal Cannula Oxygen Delivery Method [1 ( Nasal Cannula Initial Baseline)] Oxygen Delivery Method Room Air Weight: 126 lb 12.253 oz Body Mass Index (BMI) 22.8 Intake and Output for Last 24 Hours 01/28/19 01/29/19 01/30/19 23:59 23:59 23:59 Intake Total 1275 / 1275 924.6 / 924.6 611.9 / 611.9 Output Total 0 / 0 Balance 1275 / 1275 924.6 / 924.6 611.9 / 611.9 Microbiology Past 72 Hours 01/29/19 06:15 Gram Stain - Final Sputum, Expectorated/Coughed Respiratory Culture - Preliminary Appears to be normal respiratory bj. Further studies to follow. 01/26/19 21:10 Blood Culture - Preliminary Blood Culture (Wb) - Left Wrist No growth in 48 hours. Laboratory Tests Past 24 Hrs 01/27/19 01/29/19 01/29/19 06:06 06:15 11:30 WBC RBC Hgb Hct MCV MCH MCHC RDW RDW Differential Plt Count MPV Immature Gran % (Auto) Neut % (Auto) Lymph % (Auto) [place] % (Auto) Eos % (Auto) Baso % (Auto) Absolute Neuts (auto) Absolute Lymphs (auto) Total Counted Sodium Potassium Chloride Carbon Dioxide Anion Gap BUN Creatinine Estim Creat Clear Calc Est GFR (MDRD) Af Amer Est GFR (MDRD) Non-Af BUN/Creatinine Ratio Glucose Calcium Phosphorus Magnesium Total Bilirubin AST ALT Alkaline Phosphatase Total Protein Albumin Globulin Albumin/Globulin Ratio Acid Fast Stain SEE PATHOLOGY REPORT SEE PATHOLOGY REPORT TB Test (QFT) Nil 0.02 TB Test (QFT) Mitogen > 10.00 TB Test (QFT) Ag 1 0.03 TB Test (QFT) Ag 2 0.03 TB Test (QFT) Comment TB Positive Criteria Negative Miscellaneous Cytology SEE PATHOLOGY REPORT SEE PATHOLOGY REPORT 01/30/19 01/30/19 08:06 08:06 WBC 6.9 RBC 5.03 Hgb 14.7 Hct 46.7 MCV 92.8 MCH 29.2 MCHC 31.5 L RDW 13.6 RDW Differential 44.5 H Plt Count 242 MPV 9.3 Immature Gran % (Auto) 0.100 Neut % (Auto) 71.6 H Lymph % (Auto) 14.6 L [place] % (Auto) 11.4 H Eos % (Auto) 1.9 Baso % (Auto) 0.4 Absolute Neuts (auto) 5.0 Absolute Lymphs (auto) 1.01 Total Counted Not Reportable Sodium 140 Potassium 3.7 Chloride 104 Carbon Dioxide 26.0 Anion Gap 10 BUN 26 H Creatinine 0.91 Estim Creat Clear Calc 36.40 Est GFR (MDRD) Af Amer 76 Est GFR (MDRD) Non-Af 63 BUN/Creatinine Ratio 28.6 H Glucose 110 H Calcium 9.2 Phosphorus 3.5 Magnesium 2.2 Total Bilirubin 0.80 AST 25 ALT 22 Alkaline Phosphatase 88 Total Protein 6.9 Albumin 3.5 Globulin 3.4 Albumin/Globulin Ratio 1.0 Acid Fast Stain TB Test (QFT) Nil TB Test (QFT) Mitogen TB Test (QFT) Ag 1 TB Test (QFT) Ag 2 TB Test (QFT) TB Positive Criteria Miscellaneous Cytology Home Medications: Medications to take at Discharge Losartan Potassium 100 mg PO DAILY 01/26/19 Acetaminophen [Tylenol Tablet] 650 mg PO Q6H PRN PRN tablet 01/30/19 Amlodipine [Norvasc] 5 mg PO DAILY tablet 01/30/19 Magnesium Hydroxide [Milk Of Magnesia] 30 ml PO DAILY PRN PRN udc 01/30/19 Primary Care Physician: Joon Lujan Chi, MD [Primary Care Provider] - Please follow up with your Primary Care Physician in: 1-2 weeks [facility]position: [facility] Minutes spent on discharge:: 38 Patient Condition:: Stable Medical Necessity - Tobacco Use Smoking Status: Never smoker Tobacco Use: Non-smoker Meaningful Use Info Meaningful Use Diagnoses (Choose all that apply): None applicable Code Visit Inpatient E&M: 74751 Disch Hosp
--- NOTE | 2019-01-30 18:06 | NURSING ---
Called report to [facility]
== END 2019-01-30 18:28 | disposition skilled nursing facility (03) | DRG 206 ==
LOC: ED 19:20 → MS2 19:42 → PCU 01-27 09:07
PROVIDERS: Emergency Medicine; Internal Medicine Critical Care Medicine; Admitting Provider Hospitalist; Emergency Provider Emergency Medicine; Family Provider Family Medicine Geriatric Medicine; PCP Family Medicine Geriatric Medicine; Visit Provider Internal Medicine
DX: J98.4 Other disorders of lung (principal); I16.0 Hypertensive urgency; J95.811 Postprocedural pneumothorax; I10 Essential (primary) hypertension; K57.10 Diverticulosis of small intestine without perforation or abscess without bleeding; I71.2 Thoracic aortic aneurysm, without rupture; M25.552 Pain in left hip; Y84.8 Other medical procedures as the cause of abnormal reaction of the patient, or of later complication, without mention of misadventure at the time of the procedure; F03.90 Unspecified dementia, unspecified severity, without behavioral disturbance, psychotic disturbance, mood disturbance, and anxiety; W19.XXXA Unspecified fall, initial encounter; Y92.002 Bathroom of unspecified non-institutional (private) residence as the place of occurrence of the external cause
CPT/HCPCS: 36415; 70551; 71046; 71260; 73502; 77012; 80048; 80053; 81001; 82550; 82607; 83735; 84100; 84443; 84484; 85025; 85610; 85652; 85730; 86140; 86480; 87015; 87040; 87070; 87116; 87205; 87206; 87449; 87641; 88108; 88172; 88305; 88312; 88313; 93005; 94640; 94667; 94668; 97110; 97116; 97162; 97165; 97530; 97535; 97802; 99156; 99157; 99282; J7030; J7040; Q9967; A4216; J0295

== ENCOUNTER 2019-03-05 12:03 | Emergency (ER) | payer MEDICARE, OTHER, SELFPAY ==
[2019-01-26 20:35] VITALS: BMI 22.8
[2019-03-05 12:04] VITALS: BP 100/64; PULSE 106; RESP 19; TEMP 36.8; O2SAT 96; BMI 22.8
--- NOTE | 2019-03-05 12:20 | EKG12_ITS ---
Test Reason : EDEMA Blood Pressure : / mmHG Vent. Rate : 103 BPM Atrial Rate : 103 BPM P-R Int : 206 ms QRS Dur : 100 ms QT Int : 360 ms P-R-T Axes : 067 -41 060 degrees QTc Int : 471 ms Sinus tachycardia Left axis deviation Abnormal ECG Confirmed by DIAMOND BOOTHE, RAJIV ([id number]), editorial intern MAYA OTTO ([id number]) on 03/09/2019 10:48:17 AM Referred By: KATHERINE Confirmed By:RAJIV FIELDS MD
--- NOTE | 2019-03-05 12:21 | CT_ITS ---
STUDY: CTA CHEST REASON FOR EXAM: Female, 83 years old. Right lower extremity edema. Positive DVT. RADIATION DOSAGE (If Supplied By Facility): CTDIvol = ( 6.93 ) mGy, DLP = ( 153.87 ) mGycm TECHNIQUE: The examination was performed with the intravenous administration of 75CC IV Isovue 370. Post-processing of the angiographic images was performed, with multiplanar reformation and 3D reconstruction. Individualized dose optimization techniques were used for this CT. COMPARISON: Comparison is made with prior study dated January 26, 2019. FINDINGS: Normal enhancement of the main pulmonary artery and right and left pulmonary arteries. Normal enhancement of the bilateral peripheral pulmonary arteries. There is no demonstrated pulmonary embolism. There is atherosclerotic calcification of the aortic arch with tortuosity. Stable 3.4 cm aneurysmal dilatation of the proximal descending thoracic aorta with mural thrombus. There are calcifications of the coronary arteries. Normal mediastinum. There is a 2 cm x 1.4 cm right hilar lymph node. Normal visualized trachea and bronchi. The lungs are well expanded. The previously seen cavitated nodular density in this patient on the right lobe has decreased in size. It presently measures 1.8 cm x 2.4 cm. There is evidence of a 1.7 cm x 1.1 cm nodule in the posterior medial segment of the right lower lobe as seen on axial image #74. Stable mild degree of linear scarring at the lung bases. Normal pleura. Normal chest wall structures. There are degenerative changes of thoracic spine. Small hiatal hernia. CT/CTA Chest W/WO Contrast IMPRESSION: Interval decrease in size of the cavitated lesion in the super segment of the right lower lobe. 1.7 cm x 1.1 cm nodule in the posteromedial segment of the right lower lobe. Stable mild degree of scarring at the lung bases. Electronically Signed: Quirino Martinez, at 14:22 EDT , Service support ,
--- NOTE | 2019-03-05 12:32 | ED.DCSUM_ITS ---
History of Present Illness Chief Complaint: Edema Detail of Chief Complaint: DVT right lower extremity Informant: Patient, Family, SNF Onset: Today - I saw anticoagulant is Context: Sudden Onset - Comes on Timing: Continuous Quality: Swollen discolored right lower extremity Location: Right lower extremity involving the femoral, popliteal and distal vessels Current Severity: Moderate Maximum Severity: Moderate Worsened by: Nothing Relieved by: Nothing Associated Symptoms: Chronic shortness of breath Narrative: Patient is an elderly woman with multiple medical problems who presents because of DVT right lower extremity. Patient denies chest pain or shortness of breath. She states she had an outpatient ultrasound which revealed a clot. Was informed that the clot involves the femoral vein, common femoral vein, the popliteal vein and distal vessels. Apparently there is serous drainage from her right leg. Prior similar symptoms: No Recent Illness/Hospitalization: Yes - Past Medical History (1) Pulmonary cavitary lesion Status: Acute Comment: AFB's negative and Quantiferon Gold also negative (2) Aneurysm of right renal artery Status: Chronic Comment: 4 mm January 2019 and right renal hilum (3) Descending aortic aneurysm Status: Chronic Comment: 3.4 cm in January 2019 (4) Duodenal diverticulum Status: Chronic Comment: Large (5) Hypertension Status: Chronic (6) Delirium Status: Ruled-out Past Medical History - Allergies and Home Meds Allergies/Adverse Reactions: Allergies Sulfa (Sulfonamide Antibiotics) Allergy (Verified 01/26/19 14:04) Hives Primary Care Physician: Joon Lujan Chi, MD [Primary Care Provider] - Prior records reviewed: Yes Surgical History: cholecystectomy, tonsillectomy Lives: Alone Smoking Status: Never smoker Alcohol: None Drugs: None - Family History Maternal Family History: Reports: Cancer - Thyroid Paternal Family History: Reports: Cancer - colon Review of Systems General: Denies: Chills, Fever, Sweats Eyes: Denies: Visual changes - bilaterally, Diplopia ENT: Denies: Rhinorrhea, Sore throat Cardiovascular: Denies: Chest pain, Palpitations Respiratory: Denies: Dyspnea, Cough, Dyspnea on exertion Gastrointestinal: Denies: Abdominal pain, Nausea, Vomiting, Diarrhea, Melena, Hematochezia Genitourinary: Denies: Dysuria, Hematuria, Frequency Musculoskeletal: Reports: Swelling, Extremity Pain. Denies: Myalgias, Arthralgias, Neck pain, Back pain Skin: Denies: Rash, Wounds Neurological: Denies: Headache, Weakness, Numbness Hematologic: Denies: Easy bruising, Easy bleeding Physical Exam Vital Signs/Narrative: Vital Signs Temp Pulse Resp BP Pulse Ox 03/05/19 12:04 98.3 F 106 H 19 H 100/64 96 Inital Vital Signs reviewed: Yes General: Well nourished, Well developed, No Acute Distress Head: Normocephalic, Atraumatic Eyes: Perrl, EOMI. Negative for: Pale conjunctiva, Scleral icterus ENT: Moist mucous membranes, No rhinorrhea Cardiovascular: Regular rhythm, No murmurs, Normal S1, Normal S2, Tachycardia Respiratory: CTA bilaterally, Chest nontender, - - Patient is breathing rapidly. He is breathing much more rapidly than 19 times a minute. Abdomen: Soft, Nontender, Nondistended, Normal bowel sounds, No masses. Negative for: Hepatomegaly, Splenomegaly, Mass, Pulsatile mass Rectal: Deferred Back: Nontender, Normal Inspection Extremities: Tenderness, Edema - Patient has discoloration of the right lower extremity with significant swelling consistent with DVT.. Negative for: Nontender, No edema Skin: Normal color, No rash. Negative for: Cyanosis, Jaundice Neurological: Alert, Oriented x3, Cranial nerves II-XII grossly intact, Normal Strength, Normal Sensation Psychological: Normal affect, Normal Mood Diagnostic/Tx/Re-eval Impressions Chest CTA 03/05/19 12:21 IMPRESSION: Interval decrease in size of the cavitated lesion in the super segment of the right lower lobe. 1.7 cm x 1.1 cm nodule in the posteromedial segment of the right lower lobe. Stable mild degree of scarring at the lung bases. Electronically Signed: Quirino Martinez, at 14:22 EDT , Service support , 03/05/19 12:21 CTA Chest W/WO Contrast [CT] Stat Laboratory Results 03/05/19 03/05/19 03/05/19 13:00 13:00 13:00 WBC 9.0 RBC 4.63 Hgb 13.5 Hct 41.7 MCV 90.1 MCH 29.2 MCHC 32.4 RDW 13.8 RDW Differential 45.1 H Plt Count 288 MPV 9.7 Immature Gran % (Auto) 0.200 Neut % (Auto) 75.5 H Lymph % (Auto) 10.1 L [place] % (Auto) 12.7 H Eos % (Auto) 1.3 Baso % (Auto) 0.2 Absolute Neuts (auto) 6.8 Absolute Lymphs (auto) 0.91 Total Counted Not Reportable Sodium 136 Potassium 3.2 L Chloride 100 Carbon Dioxide 29.0 Anion Gap 7 BUN 16 Creatinine 0.77 Estim Creat Clear Calc 33.12 Est GFR (MDRD) Af Amer 92 Est GFR (MDRD) Non-Af 76 BUN/Creatinine Ratio 20.9 H Glucose 130 H Lactic Acid 2.4 H Calcium 9.3 Troponin I 0.040 B-Natriuretic Peptide 03/05/19 13:00 WBC RBC Hgb Hct MCV MCH MCHC RDW RDW Differential Plt Count MPV Immature Gran % (Auto) Neut % (Auto) Lymph % (Auto) [place] % (Auto) Eos % (Auto) Baso % (Auto) Absolute Neuts (auto) Absolute Lymphs (auto) Total Counted Sodium Potassium Chloride Carbon Dioxide Anion Gap BUN Creatinine Estim Creat Clear Calc Est GFR (MDRD) Af Amer Est GFR (MDRD) Non-Af BUN/Creatinine Ratio Glucose Lactic Acid Calcium Troponin I B-Natriuretic Peptide 248.6 H - Rhythm Strip Rhythm Strip: Sinus Rhythm Rate: 130 - EKG Initial EKG Interpretation: Sinus Tachycardia - Ventricular rate is 103. [place] interval is prolonged at 206 ms. There is evidence of first-degree block. Course duration is prolonged at 100 ms. Ulysses is to the left. - Medical Decision Making Prior records were reviewed. Patient has history of hypertension and she is now hypotensive, tachycardic and tachypneic. With significant clot concerned she has a pulmonary embolus that is significant. Copy of blood work was obtained as well as CTA of the chest. There is no evidence of cellulitis right lower extremity. I was informed by nurse that there is concern for urinary retention with distended bladder. Bladder scan reveals greater than 1 L. Joy was ordered. Patient's heart rate improved after placement of Joy. Greater than 1 L drained. Will discharge with leg bag and have her follow-up with urology. After discussing risk benefits of Coumadin and Lovenox versus Xarelto versus Eliquis patient was prescribed Eliquis. ED Disposition - Plan for ED Patient: Disposition: Home or Assisted Living Diagnosis: Acute deep vein thrombosis (DVT) of femoral vein of right lower extremity, Acute urinary retention Instructions: ED DVT, ED Retention Urinary Female, ED Catheter Care Joy Prescriptions: Apixaban [Eliquis] 5 mg PO BID #74 tablet Referrals: Joon Lujan Chi, MD [Primary Care Provider] - Amadou Tariq MD [STAFF PHYSICIAN] - 3-5 Days
[2019-03-05 13:10] LABS: Absolute Lymphocyte Count 0.91 X10^3/ul (0.83-4.51); Absolute Neutrophil Count 6.8 X10^3/uL (2.0-7.7); Basophil# 0.02 X10^3/uL; Basophil% 0.2 % (0-1); Eosinophil# 0.12 X10^3/uL; Eosinophils% 1.3 % (0-5); Hematocrit 41.7 % (37-47); Hemoglobin 13.5 g/dl (12.0-15.0); Lymphocyte # 0.91 X10^3/ul (4.0); Lymphocyte % 10.1 % (19-41); Mean Corp Hgb Conc 32.4 g/gl (32-36); Mean Corpuscular Hgb 29.2 pg (27.0-32.0); Mean Corpuscular Volume 90.1 fL (81-99); Mean Platelet Vol. 9.7 fl (6.2-12.0); Monocyte# 1.14 X10^3/uL; Monocyte% 12.7 % (0-10); Neutrophil # 6.78 X10^3/uL (2.7-7.7); Neutrophil % 75.5 % (47-70); POSITIVE COUNT NO; POSITIVE DIFFERENTIAL NO; POSITIVE MORPHOLOGY NO; Platelet Count 288 K/mm3 (150-450); RBC Distribution Width CV 13.8 % (11.6-14.6); RBC Distribution Width SD 45.1 fl (35.1-43.9); Red Blood Count 4.63 M/mm3 (4.2-5.4)
[2019-03-05 13:24] LABS: Anion Gap 7 (5-15); BUN 16 mg/dL (7-18); BUN/Creat Ratio 20.9 RATIO (10-20); Calcium,Total 9.3 mg/dL (8.5-10.1); Chloride 100 mmol/L (98-107); Creatinine, Serum 0.77 mg/dL (0.55-1.02); EST Glomerular Filtration Rate 76 mL/min (>60); Est Glom Filt Rate - Afr Amer 92 mL/min (>60); Estimated Creatinine Clearance 33.12 ml/min; Glucose 130 mg/dL (74-106); Potassium 3.2 mmol/L (3.5-5.1); Sodium Level 136 mmol/L (136-145)
[2019-03-05 13:38] LABS: BNP,B-Type NATRIURETIC PEPTIDE 248.6 pg/mL (0-100)
[2019-03-05 13:43] LABS: Lactic Acid 2.4 mmol/L (0.4-2.0)
[2019-03-05 14:48] VITALS: PULSE 102; RESP 21; O2SAT 98
[2019-03-05 15:59] VITALS: BP 122/72; PULSE 104; RESP 22; O2SAT 97
[2019-03-05] MEDS: APIXABAN 5 MG TABLET PO (16:01)
[2019-03-05 17:03] LABS: Reflex Lactate? Y
== END 2019-03-05 16:20 | disposition home or self-care (01) ==
PROVIDERS: Emergency Provider Emergency Medicine; Family Provider Family Medicine Geriatric Medicine; PCP Family Medicine Geriatric Medicine
DX: I82.411 Acute embolism and thrombosis of right femoral vein (principal); R33.9 Retention of urine, unspecified; R06.82 Tachypnea, not elsewhere classified; I10 Essential (primary) hypertension; I72.2 Aneurysm of renal artery; I71.9 Aortic aneurysm of unspecified site, without rupture; Z79.899 Other long term (current) drug therapy
CPT/HCPCS: 51702; 71275; 80048; 83605; 83880; 84484; 85025; 93005; 96360; 99285; J7040; J7050; Q9967; A4216

== ENCOUNTER 2019-03-14 14:42 | Inpatient (IN) | payer MEDICARE, OTHER, SELFPAY ==
[2019-03-14 14:48] VITALS: BP 131/67; PULSE 108; RESP 18; TEMP 36.6; O2SAT 96; BMI 19.3
--- NOTE | 2019-03-14 15:04 | EKG12_ITS ---
Test Reason : CP Blood Pressure : / mmHG Vent. Rate : 111 BPM Atrial Rate : 111 BPM P-R Int : 190 ms QRS Dur : 084 ms QT Int : 326 ms P-R-T Axes : 049 -39 081 degrees QTc Int : 443 ms Sinus tachycardia Left axis deviation Abnormal ECG Confirmed by DIAMOND BOOTHE, RAJIV ([id number]), sound editor ROBERTO CARLOS GRIMM ([id number]) on 03/18/2019 8:59:33 AM Referred By: Bryce Calvo Confirmed By:RAJIV FIELDS MD
[2019-03-14 15:05] VITALS: O2SAT 98
[2019-03-14 16:06] LABS: Absolute Lymphocyte Count 1.17 X10^3/ul (0.83-4.51); Absolute Neutrophil Count 19.6 X10^3/uL (2.0-7.7); Basophil# 0.03 X10^3/uL; Basophil% 0.1 % (0-1); Eosinophil# 0.09 X10^3/uL; Eosinophils% 0.4 % (0-5); Hematocrit 38.7 % (37-47); Lymphocyte # 1.17 X10^3/ul (4.0); Lymphocyte % 5.3 % (19-41); Mean Corp Hgb Conc 33.6 g/gl (32-36); Mean Corpuscular Hgb 29.8 pg (27.0-32.0); Mean Corpuscular Volume 88.8 fL (81-99); Mean Platelet Vol. 8.4 fl (6.2-12.0); Monocyte# 0.89 X10^3/uL; Monocyte% 4.1 % (0-10); Neutrophil # 19.63 X10^3/uL (2.7-7.7); Neutrophil % 89.7 % (47-70); Platelet Count 452 K/mm3 (150-450); RBC Distribution Width CV 13.7 % (11.6-14.6); RBC Distribution Width SD 44.9 fl (35.1-43.9); Red Blood Count 4.36 M/mm3 (4.2-5.4); White Blood Count 21.9 K/mm3 (4.4-11.0)
[2019-03-14 16:07] LABS: POSITIVE COUNT NO; POSITIVE DIFFERENTIAL NO; POSITIVE MORPHOLOGY NO
--- NOTE | 2019-03-14 16:15 | RAD_ITS ---
STUDY: X-RAY CHEST REASON FOR EXAM: Female, 83 years old. Cough and chest pain TECHNIQUE: PA and lateral views of the chest. COMPARISON: 01/30/2019 FINDINGS: EKG leads project over the chest. Lungs are hyperexpanded. The nodule in the right superior segment right lower lobe previously identified is partially obscured by groundglass opacities in the right upper lobe. There is also reticular opacity in the right lung base, new. Small right pleural effusion is new. Normal size heart. Normal mediastinum and patricia. Normal visualized pulmonary arteries. There is atherosclerotic calcification of the aortic arch with tortuosity. There is demineralization of the osseous structures. There is exaggeration of the thoracic kyphosis. There is no demonstrated abnormality of the visualized soft tissue structures of the upper abdomen. RAD/Chest PA and Lateral IMPRESSION: 1. Right lower lobe and right upper lobe infiltrates appear new since prior chest x-ray, suggesting pneumonia. Small right pleural effusion. 2. Superior segment right lower lobe nodule is not well seen on this exam. Electronically Signed: Vasile Mishra MD at 16:35 EDT , Service support ,
[2019-03-14 16:16] LABS: Anion Gap 9 (5-15); BUN 12 mg/dL (7-18); BUN/Creat Ratio 15.9 RATIO (10-20); Calcium,Total 9.8 mg/dL (8.5-10.1); Chloride 95 mmol/L (98-107); Creatinine, Serum 0.76 mg/dL (0.55-1.02); EST Glomerular Filtration Rate 77 mL/min (>60); Est Glom Filt Rate - Afr Amer 94 mL/min (>60); Estimated Creatinine Clearance 35.98 ml/min; Glucose 117 mg/dL (74-106); Potassium 3.9 mmol/L (3.5-5.1); Sodium Level 131 mmol/L (136-145)
[2019-03-14 16:28] LABS: Lactic Acid 1.8 mmol/L (0.4-2.0)
--- NOTE | 2019-03-14 16:53 | ED.RN ---
PT REFUSING TO GIVE URINE SAMPLE. ASSISTED UP TO BATHROOM. PT WOULD NOT ALLOW ASSISTANCE WITH SPECIMEN CUP AND REFUSED TO GIVE SAMPLE. ALSO REFUSING CATHETER.
[2019-03-14 16:55] VITALS: BP 143/80; PULSE 117; RESP 18
[2019-03-14 17:55] VITALS: BP 126/76; PULSE 110
--- NOTE | 2019-03-14 17:59 | ED.RN ---
PT AGAIN REFUSED TO GIVE A URINE SAMPLE OR ALLOW US TO STRAIGHT CATH HER. PHYSICIAN AWARE
[2019-03-14 18:34] LABS: Bacteria 0 SEEN /hpf (None Seen); Mucous, Urine 0 SEEN /hpf (<or=2+)
[2019-03-14 18:37] VITALS: BP 139/78; PULSE 111; RESP 24; TEMP 37.7; O2SAT 94
[2019-03-14 18:44] LABS: Color, Urine Yellow (Yellow); Glucose, Dipstick Normal (Normal); Ketone-Dipstick Negative (Negative); Leukocyte Esterase-Dipstick Negative /ul (Negative); Nitrite-Dipstick Negative (Negative); Occult Blood-Urine 50 /ul (Negative); Protein-Dipstick 15 mg/dl (Negative); Specific Gravity, Urine 1.015 (1.002-1.030); Urine Bilirubin Dipstick Negative (Negative); Urine Clarity Clear (Clear); Urine Urobilinogen Normal (Normal)
[2019-03-14 18:54] LABS: Red Blood Cells-Urine 0-5 SEEN /hpf (0-5); Squamous Epithelial Cells - UA 0-5 SEEN /hpf (5-10); White Blood Cells 0-5 SEEN /hpf (0-5)
--- NOTE | 2019-03-14 19:44 | ED.VIS.GEN ---
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 (3) Dementia Status: Chronic (4) Hypertension Status: Chronic (5) Delirium Status: Ruled-out Past Medical History - Allergies and Home Meds Allergies/Adverse Reactions: Allergies Sulfa (Sulfonamide Antibiotics) Allergy (Verified 03/14/19 17:34) Hives Primary Care Physician: Joon Lujan Chi, MD [Primary Care Provider] - Prior records reviewed: Yes Surgical History: cholecystectomy, tonsillectomy [facility]: [facility] Smoking Status: Never smoker Alcohol: None Drugs: None - Family History Maternal Family History: Reports: Cancer - Thyroid Paternal Family History: Reports: Cancer - colon Review of Systems General: Denies: Chills, Fever, Malaise, Subjective, Sweats Eyes: Denies: Visual changes - bilaterally, Blurred Vision - bilaterally, Diplopia ENT: Denies: Bilateral ear pain, Rhinorrhea, Sore throat Cardiovascular: Reports: Chest pain Respiratory: Reports: Dyspnea, Dyspnea on exertion. Denies: Cough, Sputum, Orthopnea, Paroxysmal nocturnal dyspnea Gastrointestinal: Denies: Abdominal pain, Vomiting Genitourinary: Denies: Dysuria, Hematuria, Frequency, -, - Musculoskeletal: Denies: Myalgias, Arthralgias, Back pain Neurological: Denies: Headache, Weakness, Parasthesia Hematologic: Denies: Easy bruising, Easy bleeding Physical Exam Vital Signs/Narrative: Vital Signs Temp Pulse Resp BP Pulse Ox 03/14/19 18:37 99.8 F H 111 H 24 H 139/78 H 94 03/14/19 17:55 110 H 126/76 H 03/14/19 16:55 117 H 18 143/80 H Inital Vital Signs reviewed: Yes General: Well nourished, Well developed, No Acute Distress Head: Normocephalic, Atraumatic Eyes: Perrl, EOMI. Negative for: Pale conjunctiva, Scleral icterus ENT: No rhinorrhea, TM's clear, Dry mucous membranes Neck: Supple, Nontender, No lymphadenopathy, No JVD, - Cardiovascular: Regular rate, Regular rhythm, No murmurs, Normal S1, Normal S2 Respiratory: No distress, Chest nontender, Rales - Rales right with egophony right lower lobe posteriorly, Decreased Air Movement - Diminished breath sounds. Negative for: CTA bilaterally Abdomen: Soft, Nontender, Nondistended, Normal bowel sounds, No masses Back: Nontender, Normal Inspection. Negative for: CVA tenderness Extremities: Nontender, Edema - 1-2+ pitting Skin: Normal color, No rash Neurological: Negative for: Alert, Oriented x3 Psychological: Normal affect Diagnostic/Tx/Re-eval Chest X-Ray - ED: Read by ED Physician Infiltrate right lower lobe and right upper lobe - Rhythm Strip Rhythm Strip: Sinus Rhythm Rate: 105 Ectopy: None - EKG Initial EKG Interpretation: Sinus Tachycardia - Ventricular rate 111. NH interval and QRS duration normal. QT interval normal. Ashley to the left. There may be a left anterior fascicular block. - Medical Decision Making Patient with altered mental status which may be secondary to metabolic versus infectious encephalopathy versus dementia. Since she is tachycardic and complains of chest pain will evaluate for PE, pneumonia atypical cardiac. Infectious and metabolic workup was undertaken. Chest x-ray reveals right upper lobe pneumonia and right lower lobe pneumonia. She was treated with levofloxacin. Hospitalist was paged for admission. ED Disposition - Plan for ED Patient: Disposition: Acute Care Hospital [facility] Diagnosis: Community acquired pneumonia, Sepsis, Asthma exacerbation in COPD Referrals: Joon Lujan Chi, MD [Primary Care Provider] -
[2019-03-14] MEDS: levoFLOXacin IV 750 MG/150 ML BAG 100 MG IV (20:10)
--- NOTE | 2019-03-14 20:21 | PCM.HP.STD ---
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 Patient also had right-sided chest pain. On further history, her son said she has been coughing and increased sputum production for last 1-2 weeks. Patient is not short of breath at rest but gets easily SOB on activity for last 1-2 week.She also had fever and chills for last 2-3 days. Patient has dementia and her history is mainly taken from the son near the bedside, Mr. Fili Gaming. In ED, he was found tachycardic, heart rate 110s, temperature 99.8, tachypnea but no hypoxia Past Medical History Past Medical History (Chronic Problems): Chronic Problems Hypertension (Chronic) Descending aortic aneurysm (Chronic) 3.4 cm in January 2019 Duodenal diverticulum (Chronic) Large Aneurysm of right renal artery (Chronic) 4 mm January 2019 and right renal hilum Pulmonary cavitary lesion (Chronic) AFB's negative and Quantiferon Gold also negative Dementia (Chronic) Asthma exacerbation in COPD (Chronic) Allergies Sulfa (Sulfonamide Antibiotics) Allergy (Verified 03/14/19 17:34) Hives Home Medications: Ambulatory Orders Medication Instructions Recorded Losartan Potassium 100 mg PO DAILY 01/26/19 Acetaminophen [Tylenol Tablet] 650 mg PO Q6H PRN PRN tablet 01/30/19 Amlodipine [Norvasc] 5 mg PO DAILY 03/05/19 Apixaban [Eliquis] 5 mg PO BID #74 tablet 03/05/19 Cephalexin [Keflex] 500 mg PO BID 03/14/19 Furosemide [Lasix] 20 mg PO DAILY 03/14/19 Surgical History: cholecystectomy, tonsillectomy Lives: [facility] Smoking Status: Never smoker Alcohol: None Drugs: None - *Family History Maternal History Items: Cancer - Thyroid Paternal History Items: Cancer - colon VTE Information - Inpt Only VTE Present on Admission: Yes VTE Mechan Device Prophylaxis: None VTE Pharm Prophylaxis ordered?: Yes Reason prophylaxis not ordered:: Procedure Not Indicated - On Eliquis Patient Problems: Active and Suspected Problems Community acquired pneumonia (Acute) Sepsis (Acute) - Physical Exam Vital Signs Temp Pulse Resp BP Pulse Ox 99.8 F H 111 H 24 H 139/78 H 94 03/14/19 18:37 03/14/19 18:37 03/14/19 18:37 03/14/19 18:37 03/14/19 18:37 Oxygen Delivery Method Room Air Weight: 120 lb Body Mass Index (BMI) 19.3 Laboratory Tests Past 24 Hrs 03/14/19 03/14/19 03/14/19 15:35 15:35 15:35 WBC 21.9 H RBC 4.36 Hgb 13.0 Hct 38.7 MCV 88.8 MCH 29.8 MCHC 33.6 RDW 13.7 RDW Differential 44.9 H Plt Count 452 H MPV 8.4 Immature Gran % (Auto) 0.400 Neut % (Auto) 89.7 H Lymph % (Auto) 5.3 L [place] % (Auto) 4.1 Eos % (Auto) 0.4 Baso % (Auto) 0.1 Absolute Neuts (auto) 19.6 H Absolute Lymphs (auto) 1.17 Total Counted Not Reportable Sodium 131 L Potassium 3.9 Chloride 95 L Carbon Dioxide 27.0 Anion Gap 9 BUN 12 Creatinine 0.76 Estim Creat Clear Calc 35.98 Est GFR (MDRD) Af Amer 94 Est GFR (MDRD) Non-Af 77 BUN/Creatinine Ratio 15.9 Glucose 117 H Lactic Acid 1.8 Calcium 9.8 Urine Color Urine Clarity Urine pH Ur Specific [place] Urine Protein Urine Glucose (UA) Urine Ketones Urine Occult Blood Urine Nitrite Urine Bilirubin Urine Urobilinogen Ur Leukocyte Esterase Urine RBC Urine WBC Ur Squamous Epith Cells Urine Bacteria Urine Mucus 03/14/19 18:20 WBC RBC Hgb Hct MCV MCH MCHC RDW RDW Differential Plt Count MPV Immature Gran % (Auto) Neut % (Auto) Lymph % (Auto) [place] % (Auto) Eos % (Auto) Baso % (Auto) Absolute Neuts (auto) Absolute Lymphs (auto) Total Counted Sodium Potassium Chloride Carbon Dioxide Anion Gap BUN Creatinine Estim Creat Clear Calc Est GFR (MDRD) Af Amer Est GFR (MDRD) Non-Af BUN/Creatinine Ratio Glucose Lactic Acid Calcium Urine Color Yellow Urine Clarity Clear Urine pH 6.0 Ur Specific [place] 1.015 Urine Protein 15 H Urine Glucose (UA) Normal Urine Ketones Negative Urine Occult Blood 50 H Urine Nitrite Negative Urine Bilirubin Negative Urine Urobilinogen Normal Ur Leukocyte Esterase Negative Urine RBC 0-5 SEEN Urine WBC 0-5 SEEN Ur Squamous Epith Cells 0-5 SEEN Urine Bacteria 0 SEEN Urine Mucus 0 SEEN Assessment/Plan All Active Problems Community acquired pneumonia (Acute) Sepsis (Acute) The patient is a 83 year old F with history of COPD was sent to ER for altered mental status, confusion and behavioral change from [facility]. Patient also had right-sided chest pain. On further history, her son said she has been coughing and increased sputum production for last 1-2 weeks. Patient is not short of breath at rest but gets easily SOB on activity for last 1-2 week.She also had fever and chills for last 2-3 days. Patient has dementia and her history is mainly taken from the son near the bedside, Mr. Fili Gaming. In ED, he was found tachycardic, heart rate 110s, temperature 99.8, tachypnea, leukocytosis with left shift but no hypoxia 1. Sepsis secondary to multilobar healthcare associated pneumonia: Patient is being admitted on regular MedSurg floor. IV fluid normal saline. Started on IV Zosyn and vancomycin. If MRSA nasal screen is negative, can discontinue vancomycin. Pneumonia workup including urinary antigens, respiratory panel, sputum culture and respiratory panel ordered. If patient spikes fever, will need blood cultures too. 2. COPD/asthmatic bronchitis: Patient does not have shortness of breath at rest, or wheezing or hypoxia. Does not seem to be in COPD exacerbation. 3. Right lower extremity DVT: Patient had DVT diagnosed right lower extremity about 10 days ago. Patient was started on Eliquis on 03/05/2019. Continue Eliquis 5 mg twice daily. 4. Pulmonary cavitary lesion in right lower lobe: CT angiogram done on 03/05/2019 shows no PE but interval decrease in size of cavitary lesion in superior segment of right lower lobe. QuantiFERON test and AFB were negative. 5. Dementia: Patient has short-term memory loss. His medical data entry clerk is Mr. Fili Gaming. 6. Other comorbidities include hypertension intermittent delirium, aneurysm of right renal artery, descending aortic aneurysm 7. Advanced directive/living will: His Son, Mr. Fili Gaming thinks she has living will at home. Discussed with the son regarding different options including Full code, DNRCC-A and DNRCC including life support measures, CPR, intubation and vent support. Patient son wanted full code for now. DVT prophylaxis: Patient already on Eliquis. Laboratory Results 03/14/19 15:35: WBC 21.9 H, RBC 4.36, Hgb 13.0, Hct 38.7, MCV 88.8, MCH 29.8, MCHC 33.6, RDW 13.7, RDW Differential 44.9 H, Plt Count 452 H, MPV 8.4, Immature Gran % (Auto) 0.400, Neut % (Auto) 89.7 H, Lymph % (Auto) 5.3 L, [place] % (Auto) 4.1, Eos % (Auto) 0.4, Baso % (Auto) 0.1, Absolute Neuts (auto) 19.6 H, Absolute Lymphs (auto) 1.17, Total Counted Not Reportable 03/14/19 15:35: Sodium 131 L, Potassium 3.9, Chloride 95 L, Carbon Dioxide 27.0, Anion Gap 9, BUN 12, Creatinine 0.76, Estim Creat Clear Calc 35.98, Est GFR (MDRD) Af Amer 94, Est GFR (MDRD) Non-Af 77, BUN/Creatinine Ratio 15.9, Glucose 117 H, Calcium 9.8 03/14/19 15:35: Lactic Acid 1.8 03/14/19 18:20: Urine Color Yellow, Urine Clarity Clear, Urine pH 6.0, Ur Specific [place] 1.015, Urine Protein 15 H, Urine Glucose (UA) Normal, Urine Ketones Negative, Urine Occult Blood 50 H, Urine Nitrite Negative, Urine Bilirubin Negative, Urine Urobilinogen Normal, Ur Leukocyte Esterase Negative, Urine RBC 0-5 SEEN, Urine WBC 0-5 SEEN, Ur Squamous Epith Cells 0-5 SEEN, Urine Bacteria 0 SEEN, Urine Mucus 0 SEEN Clinical Impression(s) from Imaging Studies Chest X-Ray 03/14/19 16:15 IMPRESSION: 1. Right lower lobe and right upper lobe infiltrates appear new since prior chest x-ray, suggesting pneumonia. Small right pleural effusion. 2. Superior segment right lower lobe nodule is not well seen on this exam. Code Visit Inpatient E&M: 97625 Init Hosp L3 Procedures: 69318 Advncd Care Plan 30 Min
[2019-03-14 21:00] VITALS: BMI 19.5
[2019-03-14 21:08] VITALS: BMI 19.6
[2019-03-14 21:30] VITALS: BP 117/58; PULSE 103; RESP 18; TEMP 37.1; O2SAT 95
[2019-03-14] MEDS: 0.9% Normal Saline 1,000 ML 100 ML IV (21:36)
--- NOTE | 2019-03-14 22:51 | NURSING ---
After numerous tries, I was finally able to confirm the home meds with a nurse from [facility]. Nurse also stated that pt takes meds whole.
[2019-03-14] MEDS: 0.9% NaCl IVPB Med Flush (250 mL) 15 ML IV (22:56)
[2019-03-14] MEDS: APIXABAN 5 MG TABLET PO (22:58)
[2019-03-14] MEDS: Famotidine 20 MG Tablet PO (22:58)
[2019-03-14] MEDS: guaiFENesin 1,200 MG Tablet 1200 MG PO (22:58)
[2019-03-15] VITALS (11 sets, daily range): BP systolic 120–140; BP diastolic 60–69; PULSE 100–115; RESP 18; TEMP 37.1–37.4; O2SAT 92–94
--- NOTE | 2019-03-15 00:01 | PCM.RX.CS ---
Consult Pharmacy has been consulted to manage selected antiobiotic: Vancomycin Type of Consult: New start Suspected Infection: Pneumonia Prior Doses of Antibiotics Received/Current Regimen: Medications Start Vancomycin HCl 750 mg/ Sodium (Chloride) 265 mls @ 250 mls/hr IV X1 ONE 03/15/19. Continue Vancomycin HCl () 500 mg in 100 mls @ 100 mls/hr IV Q24H IBAN per protocol Labs: Sodium 131 mmol/L (136-145) L 03/14/19 15:35 Potassium 3.9 mmol/L (3.5-5.1) 03/14/19 15:35 Chloride 95 mmol/L (98-107) L 03/14/19 15:35 Carbon Dioxide 27.0 mmol/L (21.0-32.0) 03/14/19 15:35 Anion Gap 9 (5-15) 03/14/19 15:35 BUN 12 mg/dL (7-18) 03/14/19 15:35 Creatinine 0.76 mg/dL (0.55-1.02) 03/14/19 15:35 Est GFR (MDRD) Af Amer 94 mL/min (>60) 03/14/19 15:35 Est GFR (MDRD) Non-Af 77 mL/min (>60) 03/14/19 15:35 BUN/Creatinine Ratio 15.9 RATIO (10-20) 03/14/19 15:35 Glucose 117 mg/dL (74-106) H 03/14/19 15:35 Weight used for dosin kg Estimated Creatinine Clearance: 36 ml/min Goal Trough: 10-15 mcg/mL Pharmacy Plan for Drug Dosing: Pharmacy Service will continue to monitor and adjust dosing as required. Follow-Up Labs: Trough Vancomycin - before 3rd dose per protocol Labs to be done on [date and time ordered]: 03/17/19 5379
[2019-03-15] MEDS: amLODIPine 5 MG Tablet PO (10:01)
[2019-03-15] MEDS: Losartan Potassium 100 MG Tablet PO (10:01)
[2019-03-15] MEDS: Famotidine 20 MG Tablet PO ×2 (10:01→21:55)
[2019-03-15] MEDS: Furosemide 20 MG Tablet PO (10:01)
[2019-03-15] MEDS: guaiFENesin 1,200 MG Tablet 1200 MG PO ×2 (10:01→21:55)
[2019-03-15] MEDS: APIXABAN 5 MG TABLET PO ×2 (10:03→21:55)
--- NOTE | 2019-03-15 10:22 | PCM.PN.HOSP ---
Patient Problems: Active and Suspected Problems Community acquired pneumonia (Acute) Sepsis (Acute) Subjective: Patient seen and examined. She was admitted with a complaint of altered mental status and behavioral changes as well as associated right-sided chest pain. She had been coughing with increased sputum production for the last 1-2 weeks prior to admission. She also has shortness of breath with exertion as well as fever and chills for 2-3 days prior to admission. It was found to be tachycardic and tachypneic but had no fever. She is currently be managed for community-acquired pneumonia and acute metabolic encephalopathy due to pneumonia. Patient has no complaints this morning. She does appear a bit confused but is able to answer questions. She still admitted coughing but with scant production of sputum. She denied any fever chills or palpitations, dizziness or shortness of breath. Review of systems otherwise negative. Labs and vitals reviewed. Vitals/I&O's: Vital Signs Temp Pulse Resp BP Pulse Ox 98.8 F 101 H 18 120/62 94 03/15/19 03:13 03/15/19 06:15 03/15/19 03:13 03/15/19 03:13 03/15/19 03:13 Oxygen Delivery Method Room Air Weight: 121 lb 4.068 oz Body Mass Index (BMI) 19.5 Intake and Output for Last 24 Hours 03/13/19 03/14/19 03/15/19 23:59 23:59 23:59 Intake Total 1065 / 1065 Output Total 500 / 500 Balance 565 / 565 General: Alert, Cooperative HEENT: Atraumatic, PERRLA, EOMI, Normocephalic Oral: Dry Mucosa Neck: Supple, No JVD, Negative Carotid Bruits Lungs: Clear to auscultation, Normal air movement, No rhonchi, No wheeze, No rales Cardiovascular: Regular Rhythm, Normal S1, Normal S2, Tachycardic Abdomen: Bowel Sounds Present, Soft, Non Tender, Non-Distended, No Hepato-splenomegaly Extremities: No clubbing, No cyanosis, Capillary Refill Less than 3 Seconds, - - RLE relatively edematous, with mild erythema, no tenderness on palpation- due to RLE DVT Skin: No rashes, No breakdown Musculoskeletal: No Tenderness to Palpation of Joints or Extremities Lymphatic: No Cervical, Supraclavicular, or Inguinal Adenopathy Neurological: Cranial nerves II-XII grossly intact, Neuro grossly intact Psych/Mental Status: Normal Affect, Appropriate Microbiology Past 72 Hours 03/15/19 04:26 Urine, Random Streptococcus pneumoniae Antigen (M - Final 03/15/19 04:26 Urine, Random Legionella Antigen - Final Laboratory Results 03/14/19 15:35: WBC 21.9 H, RBC 4.36, Hgb 13.0, Hct 38.7, MCV 88.8, MCH 29.8, MCHC 33.6, RDW 13.7, RDW Differential 44.9 H, Plt Count 452 H, MPV 8.4, Immature Gran % (Auto) 0.400, Neut % (Auto) 89.7 H, Lymph % (Auto) 5.3 L, [place] % (Auto) 4.1, Eos % (Auto) 0.4, Baso % (Auto) 0.1, Absolute Neuts (auto) 19.6 H, Absolute Lymphs (auto) 1.17, Total Counted Not Reportable 03/14/19 15:35: Sodium 131 L, Potassium 3.9, Chloride 95 L, Carbon Dioxide 27.0, Anion Gap 9, BUN 12, Creatinine 0.76, Estim Creat Clear Calc 35.98, Est GFR (MDRD) Af Amer 94, Est GFR (MDRD) Non-Af 77, BUN/Creatinine Ratio 15.9, Glucose 117 H, Calcium 9.8 03/14/19 15:35: Lactic Acid 1.8 03/14/19 18:20: Urine Color Yellow, Urine Clarity Clear, Urine pH 6.0, Ur Specific [place] 1.015, Urine Protein 15 H, Urine Glucose (UA) Normal, Urine Ketones Negative, Urine Occult Blood 50 H, Urine Nitrite Negative, Urine Bilirubin Negative, Urine Urobilinogen Normal, Ur Leukocyte Esterase Negative, Urine RBC 0-5 SEEN, Urine WBC 0-5 SEEN, Ur Squamous Epith Cells 0-5 SEEN, Urine Bacteria 0 SEEN, Urine Mucus 0 SEEN Diagnostic Data Chest X-Ray 03/14/19 16:15 IMPRESSION: 1. Right lower lobe and right upper lobe infiltrates appear new since prior chest x-ray, suggesting pneumonia. Small right pleural effusion. 2. Superior segment right lower lobe nodule is not well seen on this exam. Electronically Signed: Vasile Mishra MD at 16:35 EDT , Service support , Current Medications Acetaminophen (Tylenol) 650 mg PO Q6H PRN PRN PRN Reason: Non-cardiac pain (mod-severe) Albuterol/Ipratropium (Duoneb) 3 ml INHALATION Q4H PRN PRN PRN Reason: SHORTNESS OF BREATH Amlodipine Besylate (Norvasc) 5 mg PO DAILY [facility] Last Admin: 03/15/19 10:01 Dose: 5 mg Apixaban (Eliquis) 5 mg PO BID [facility] Last Admin: 03/15/19 10:03 Dose: 5 mg Famotidine (Pepcid) 20 mg PO BID [facility] Last Admin: 03/15/19 10:01 Dose: 20 mg Furosemide (Lasix) 20 mg PO DAILY [facility] Last Admin: 03/15/19 10:01 Dose: 20 mg Guaifenesin (Mucinex) 1,200 mg PO BID [facility] Last Admin: 03/15/19 10:01 Dose: 1,200 mg Piperacillin Sod/Tazobactam (Sod 3.375 gm/ Sodium Chloride) 50 mls @ 12.5 mls/hr IV Q8 [facility] Last Admin: 03/15/19 05:48 Dose: 12.5 mls/hr Sodium Chloride () 250 mls @ 15 mls/hr IV .[id number] PRN PRN Reason: SALINE FLUSH Last Admin: 03/14/19 22:56 Dose: 15 mls/hr Vancomycin HCl () 500 mg in 100 mls @ 100 mls/hr IV Q24H [facility] Vancomycin IV Pharmacy to Dose (1 ea/ Sodium Chloride) 500 mls @ 250 mls/hr IV DAILY PRN; Protocol Losartan Potassium (Cozaar) 100 mg PO DAILY [facility] Last Admin: 03/15/19 10:01 Dose: 100 mg Nutritional Formula (Lactose Free) (Ensure Enlive) 120 ml PO 4X/DAY [facility] Last Admin: 03/15/19 10:01 Dose: 120 ml Sodium Chloride () 5 - 15 ml IV UD PRN PRN Reason: SALINE FLUSH Medical Necessity - Tobacco Use Smoking Status: Never smoker Tobacco Use: Non-smoker Assessment/Plan All Active Problems Community acquired pneumonia (Acute) Sepsis (Acute) 1. Sepsis due to community acquired pneumonia still has a cough, but is less productive; WBC was 21.9 on admission. I dont think patient has health associated pneumonia as she has not been in the hospital or on a ventilator recently still tachycardic, but has remained afebrile. Has no tachypnea urine strep and legionella antigens negative respiratory panel also negative will order sputum culture, and continue antibiotics. to de-escalate antibiotics if patient remains afebrile 2. COPD/asthma: on breathing treatments. 3. RLE DVT: on eliquis; started on 03/05/19 after DVT was diagnosed. 4. Right lower lobe cavitary lesion: diagnosed per CTA of chest done on 03/05/19. Stable. TB screen was negative 5. Hyponatremia: Sodium was 131 on admission. Likely due to dehydration from decreased intake. Will hydrate with IV fluids and monitor. 6. Hypertension: Controlled for age. On amlodipine 5 mg daily. Also on losartan 100 mg daily 7. Dementia with intermittent delirium: Currently stable. DVT prophylaxis: On Eliquis Code Status: Full code methods engineer is her son Fili Gaming. Code Visit Inpatient E&M: 79621 Subs Hosp L3
--- NOTE | 2019-03-15 10:30 | PN_ITS ---
Patient Problems: Active and Suspected Problems Community acquired pneumonia (Acute) Sepsis (Acute) Subjective: Patient seen and examined. She was admitted with a complaint of altered mental status and behavioral changes as well as associated right-sided chest pain. She had been coughing with increased sputum production for the last 1-2 weeks prior to admission. She also has shortness of breath with exertion as well as fever and chills for 2-3 days prior to admission. It was found to be tachycardic and tachypneic but had no fever. She is currently be managed for community-acquired pneumonia and acute metabolic encephalopathy due to pneumonia. Patient has no complaints this morning. She does appear a bit confused but is able to answer questions. She still admitted coughing but with scant production of sputum. She denied any fever chills or palpitations, dizziness or shortness of breath. Review of systems otherwise negative. Labs and vitals reviewed. Vitals/I&O's: Vital Signs Temp Pulse Resp BP Pulse Ox 98.8 F 101 H 18 120/62 94 03/15/19 03:13 03/15/19 06:15 03/15/19 03:13 03/15/19 03:13 03/15/19 03:13 Oxygen Delivery Method Room Air Weight: 121 lb 4.068 oz Body Mass Index (BMI) 19.5 Intake and Output for Last 24 Hours 03/13/19 03/14/19 03/15/19 23:59 23:59 23:59 Intake Total 1065 / 1065 Output Total 500 / 500 Balance 565 / 565 General: Alert, Cooperative HEENT: Atraumatic, PERRLA, EOMI, Normocephalic Oral: Dry Mucosa Neck: Supple, No JVD, Negative Carotid Bruits Lungs: Clear to auscultation, Normal air movement, No rhonchi, No wheeze, No rales Cardiovascular: Regular Rhythm, Normal S1, Normal S2, Tachycardic Abdomen: Bowel Sounds Present, Soft, Non Tender, Non-Distended, No Hepato- splenomegaly Extremities: No clubbing, No cyanosis, Capillary Refill Less than 3 Seconds, - - RLE relatively edematous, with mild erythema, no tenderness on palpation- due to RLE DVT Skin: No rashes, No breakdown Musculoskeletal: No Tenderness to Palpation of Joints or Extremities Lymphatic: No Cervical, Supraclavicular, or Inguinal Adenopathy Neurological: Cranial nerves II-XII grossly intact, Neuro grossly intact Psych/Mental Status: Normal Affect, Appropriate Microbiology Past 72 Hours 03/15/19 04:26 Urine, Random Streptococcus pneumoniae Antigen (M - Final 03/15/19 04:26 Urine, Random Legionella Antigen - Final Laboratory Results 03/14/19 15:35: WBC 21.9 H, RBC 4.36, Hgb 13.0, Hct 38.7, MCV 88.8, MCH 29.8, MCHC 33.6, RDW 13.7, RDW Differential 44.9 H, Plt Count 452 H, MPV 8.4, Immature Gran % (Auto) 0.400, Neut % (Auto) 89.7 H, Lymph % (Auto) 5.3 L, Treg[place] % (Auto) 4.1, Eos % (Auto) 0.4, Baso % (Auto) 0.1, Absolute Neuts (auto) 19.6 H, Absolute Lymphs (auto) 1.17, Total Counted Not Reportable 03/14/19 15:35: Sodium 131 L, Potassium 3.9, Chloride 95 L, Carbon Dioxide 27.0, Anion Gap 9, BUN 12, Creatinine 0.76, Estim Creat Clear Calc 35.98, Est GFR (MDRD) Af Amer 94, Est GFR (MDRD) Non-Af 77, BUN/Creatinine Ratio 15.9, Glucose 117 H, Calcium 9.8 03/14/19 15:35: Lactic Acid 1.8 03/14/19 18:20: Urine Color Yellow, Urine Clarity Clear, Urine pH 6.0, Ur Specific [place] 1.015, Urine Protein 15 H, Urine Glucose (UA) Normal, Urine Ketones Negative, Urine Occult Blood 50 H, Urine Nitrite Negative, Urine Bilirubin Negative, Urine Urobilinogen Normal, Ur Leukocyte Esterase Negative, Urine RBC 0-5 SEEN, Urine WBC 0-5 SEEN, Ur Squamous Epith Cells 0-5 SEEN, Urine Bacteria 0 SEEN, Urine Mucus 0 SEEN Diagnostic Data Chest X-Ray 03/14/19 16:15 IMPRESSION: 1. Right lower lobe and right upper lobe infiltrates appear new since prior chest x-ray, suggesting pneumonia. Small right pleural effusion. 2. Superior segment right lower lobe nodule is not well seen on this exam. Electronically Signed: Vasile Mishra MD at 16:35 EDT , Service support , Current Medications Acetaminophen (Tylenol) 650 mg PO Q6H PRN PRN PRN Reason: Non-cardiac pain (mod-severe) Albuterol/Ipratropium (Duoneb) 3 ml INHALATION Q4H PRN PRN PRN Reason: SHORTNESS OF BREATH Amlodipine Besylate (Norvasc) 5 mg PO DAILY [facility] Last Admin: 03/15/19 10:01 Dose: 5 mg Apixaban (Eliquis) 5 mg PO BID [facility] Last Admin: 03/15/19 10:03 Dose: 5 mg Famotidine (Pepcid) 20 mg PO BID [facility] Last Admin: 03/15/19 10:01 Dose: 20 mg Furosemide (Lasix) 20 mg PO DAILY [facility] Last Admin: 03/15/19 10:01 Dose: 20 mg Guaifenesin (Mucinex) 1,200 mg PO BID [facility] Last Admin: 03/15/19 10:01 Dose: 1,200 mg Piperacillin Sod/Tazobactam (Sod 3.375 gm/ Sodium Chloride) 50 mls @ 12.5 mls/hr IV Q8 [facility] Last Admin: 03/15/19 05:48 Dose: 12.5 mls/hr Sodium Chloride () 250 mls @ 15 mls/hr IV .[id number] PRN PRN Reason: SALINE FLUSH Last Admin: 03/14/19 22:56 Dose: 15 mls/hr Vancomycin HCl () 500 mg in 100 mls @ 100 mls/hr IV Q24H [facility] Vancomycin IV Pharmacy to Dose (1 ea/ Sodium Chloride) 500 mls @ 250 mls/hr IV DAILY PRN; Protocol Losartan Potassium (Cozaar) 100 mg PO DAILY [facility] Last Admin: 03/15/19 10:01 Dose: 100 mg Nutritional Formula (Lactose Free) (Ensure Enlive) 120 ml PO 4X/DAY [facility] Last Admin: 03/15/19 10:01 Dose: 120 ml Sodium Chloride () 5 - 15 ml IV UD PRN PRN Reason: SALINE FLUSH Medical Necessity - Tobacco Use Smoking Status: Never smoker Tobacco Use: Non-smoker Assessment/Plan All Active Problems Community acquired pneumonia (Acute) Sepsis (Acute) 1. Sepsis due to community acquired pneumonia * still has a cough, but is less productive; WBC was 21.9 on admission. * I dont think patient has health associated pneumonia as she has not been in the hospital or on a ventilator recently * still tachycardic, but has remained afebrile. Has no tachypnea * urine strep and legionella antigens negative * respiratory panel also negative * will order sputum culture, and continue antibiotics. to de-escalate an tibiotics if patient remains afebrile * 2. COPD/asthma: on breathing treatments. 3. RLE DVT: on eliquis; started on 03/05/19 after DVT was diagnosed. 4. Right lower lobe cavitary lesion: diagnosed per CTA of chest done on 03/05/19. Stable. TB screen was negative 5. Hyponatremia: Sodium was 131 on admission. Likely due to dehydration from decreased intake. Will hydrate with IV fluids and monitor. 6. Hypertension: Controlled for age. On amlodipine 5 mg daily. Also on losartan 100 mg daily 7. Dementia with intermittent delirium: Currently stable. DVT prophylaxis: On Eliquis Code Status: Full code team psychologist is her son Fili Gaming. * Code Visit Inpatient E&M: 43451 Subs Hosp L3
[2019-03-15 11:14] LABS: Absolute Lymphocyte Count 0.63 X10^3/ul (0.83-4.51); Absolute Neutrophil Count 20.6 X10^3/uL (2.0-7.7); Basophil# 0.04 X10^3/uL; Basophil% 0.2 % (0-1); Eosinophil# 0.08 X10^3/uL; Eosinophils% 0.4 % (0-5); Hematocrit 34.4 % (37-47); Hemoglobin 11.3 g/dl (12.0-15.0); Lymphocyte # 0.63 X10^3/ul (4.0); Lymphocyte % 2.8 % (19-41); Mean Corp Hgb Conc 32.8 g/gl (32-36); Mean Corpuscular Hgb 29.3 pg (27.0-32.0); Mean Corpuscular Volume 89.1 fL (81-99); Mean Platelet Vol. 8.4 fl (6.2-12.0); Monocyte# 1.33 X10^3/uL; Monocyte% 5.8 % (0-10); Neutrophil # 20.59 X10^3/uL (2.7-7.7); Neutrophil % 90.2 % (47-70); Platelet Count 459 K/mm3 (150-450); RBC Distribution Width CV 13.7 % (11.6-14.6); Red Blood Count 3.86 M/mm3 (4.2-5.4); White Blood Count 22.8 K/mm3 (4.4-11.0)
[2019-03-15 11:16] LABS: Differential Indicated SCAN CRITERIA MET; POSITIVE COUNT NO; POSITIVE DIFFERENTIAL YES; POSITIVE MORPHOLOGY NO
[2019-03-15 11:38] LABS: Differential Comment SCANNED
[2019-03-15 11:43] LABS: Anion Gap 8 (5-15); BUN 9 mg/dL (7-18); BUN/Creat Ratio 13.2 RATIO (10-20); Calcium,Total 8.5 mg/dL (8.5-10.1); Chloride 100 mmol/L (98-107); Creatinine, Serum 0.68 mg/dL (0.55-1.02); EST Glomerular Filtration Rate 87 mL/min (>60); Est Glom Filt Rate - Afr Amer 106 mL/min (>60); Estimated Creatinine Clearance 36.36 ml/min; Glucose 152 mg/dL (74-106); Potassium 3.8 mmol/L (3.5-5.1); Sodium Level 132 mmol/L (136-145)
[2019-03-15] MEDS: 0.9% Normal Saline 1,000 ML 100 ML IV (12:04)
[2019-03-15 14:28] LABS: M R Staph aureus DNA By PCR Negative (Negative); Probe Check PASS; Specimen Processing Control PASS
[2019-03-16] MEDS: 0.9% Normal Saline 1,000 ML 100 ML IV (00:16)
[2019-03-16 03:00] VITALS: PULSE 93
[2019-03-16] MEDS: Vancomycin IV 500 MG/100 ML BAG 100 MG IV (03:34)
[2019-03-16] MEDS: Acetaminophen 325 MG Tablet 650 MG PO (03:35)
[2019-03-16 03:47] VITALS: BP 123/65; PULSE 102; RESP 18; TEMP 37.1; O2SAT 94
[2019-03-16 06:27] LABS: Anion Gap 7 (5-15); BUN 6 mg/dL (7-18); BUN/Creat Ratio 10.2 RATIO (10-20); Calcium,Total 8.3 mg/dL (8.5-10.1); Chloride 104 mmol/L (98-107); Creatinine, Serum 0.59 mg/dL (0.55-1.02); EST Glomerular Filtration Rate 103 mL/min (>60); Est Glom Filt Rate - Afr Amer 125 mL/min (>60); Estimated Creatinine Clearance 36.36 ml/min; Glucose 110 mg/dL (74-106); Potassium 3.4 mmol/L (3.5-5.1); Sodium Level 136 mmol/L (136-145)
[2019-03-16 06:28] LABS: Absolute Lymphocyte Count 0.83 X10^3/ul (0.83-4.51); Basophil# 0.03 X10^3/uL; Basophil% 0.2 % (0-1); Eosinophil# 0.17 X10^3/uL; Hematocrit 31.7 % (37-47); Hemoglobin 10.3 g/dl (12.0-15.0); Lymphocyte # 0.83 X10^3/ul (4.0); Lymphocyte % 5.1 % (19-41); Mean Corp Hgb Conc 32.5 g/gl (32-36); Mean Corpuscular Hgb 29.2 pg (27.0-32.0); Mean Corpuscular Volume 89.8 fL (81-99); Mean Platelet Vol. 9.2 fl (6.2-12.0); Monocyte# 1.36 X10^3/uL; Monocyte% 8.3 % (0-10); Neutrophil # 13.95 X10^3/uL (2.7-7.7); Platelet Count 414 K/mm3 (150-450); RBC Distribution Width CV 13.9 % (11.6-14.6); RBC Distribution Width SD 44.7 fl (35.1-43.9); Red Blood Count 3.53 M/mm3 (4.2-5.4); White Blood Count 16.4 K/mm3 (4.4-11.0)
[2019-03-16 06:38] LABS: POSITIVE COUNT NO; POSITIVE DIFFERENTIAL NO; POSITIVE MORPHOLOGY NO
[2019-03-16 08:18] VITALS: BP 111/50; PULSE 90; RESP 18; TEMP 36.6; O2SAT 96
[2019-03-16 09:00] VITALS: PULSE 106
[2019-03-16] MEDS: Furosemide 20 MG Tablet PO (09:27)
[2019-03-16] MEDS: APIXABAN 5 MG TABLET PO (09:27)
[2019-03-16] MEDS: guaiFENesin 1,200 MG Tablet 1200 MG PO (09:27)
[2019-03-16] MEDS: Losartan Potassium 100 MG Tablet PO (09:27)
[2019-03-16] MEDS: amLODIPine 5 MG Tablet PO (09:27)
[2019-03-16] MEDS: Famotidine 20 MG Tablet PO (09:28)
--- NOTE | 2019-03-16 09:51 | CASEMGMT ---
Addendum entered by Michela Sebastian 03/16/19 10:11: SW received call from pt's son Fili. Fili confirms that pt is from [facility] and plan is for pt to return. Fili states that he will be at [facility] later today to transport pt back to [facility]. Original Note: Social Work Note Pt is listed as being from [facility]. SW met with pt, introduced self and role at [facility]. Pt is alert and orientated but per H+P, pt was admitted for altered mental status, confusion, behavioral change and does have dementia. Pt confirms that she is from [facility] and states she will be returning there at discharge. Pt states that her son Fili may be able to transport her back to [facility]. Pt gave this worker permission to call her son Fili in regards to discharge plans. SW placed a call to pt's so Fili and left message to confirm discharge plans with this worker. SW waiting for call back. EMI placed a call to Evelia at [facility]. Evelia confirms pt is resident at facility, was skilled and is able to return skilled once medically cleared. EMI updated Evelia that pt is likely to discharge today. EMI faxed updated clinicals to Evelia. Plan: Return to [facility] skilled once medically cleared Michela Sebastian COMMERCIAL MAINTENANCE TECHNICIAN, BUSINESS PROCESS ANALYST
--- NOTE | 2019-03-16 11:11 | PCM.TXEXTCAR ---
- Diet 03/14/19 20:56 Diet: 2 Gram Sodium - Routine Orders/Code Status Routine Lab Work: CBC, BMP Code Status: Full Code - Therapies Weight Bearing: Full weight bearing Physical Therapy: Eval and Treat Occupational Therapy: Eval and Treat - Allergies/Procedures Done in Hospital Allergies/Adverse Reactions: Allergies Sulfa (Sulfonamide Antibiotics) Allergy (Verified 03/14/19 17:34) Hives Procedures: None - Type of Care/Length of Stay Estimated LOS: Convalescent Care Less Than 30 days Type of Care Needed: Skilled Rehab Potential: Good Prognosis: Good - Additional Orders/Day of Discharge Day of Discharge: 03/16/19 - Follow Up Care Primary Care Physician: Joon Lujan Chi, MD [Primary Care Provider] - Within 2 Weeks
--- NOTE | 2019-03-16 11:14 | PCM.DC.SUM ---
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 Right lower lobe and right upper lobe infiltrates appear new since prior chest x-ray, suggesting pneumonia. Small right pleural effusion. 2. Superior segment right lower lobe nodule is not well seen on this exam. Electronically Signed: Vasile Mishra MD at 16:35 EDT , Service support , Operations: None Procedures: None Summary of Care Provided: The patient is a 83 year old F presents with shortness of breath. Chest x-ray showed increasing pneumonia more prominent on the right side as compared to previous x-rays. Patient was initially felt to have community-acquired pneumonia but patient was actually in the hospital in January of this year. Therefore, patient would be at risk for hospital acquired pneumonia/gram-negative pneumonia. Patient was on vancomycin and Zosyn. Patient overall has improved. De-escalate the patient's antibiotics over to Augmentin and doxycycline. Patient is feeling much better. Patient will be going to a longterm facility for further rehabilitation. [] Patient Problems: Active and Suspected Problems Gram-negative pneumonia (Acute) Sepsis (Acute) - Physical Exam General: Alert, No apparent distress HEENT: Atraumatic, Normocephalic Oral: Moist Mucosa, No Gingival or Mucosal Lesions/ Ulcerations Neck: No Nodes, Thyroid Normal Size and Texture Lungs: Normal air movement, - - Crackles on the right Cardiovascular: Regular rate, Regular Rhythm, Normal S1, Normal S2, No murmurs Extremities: No edema, No Calf Tenderness Skin: No rashes, No breakdown Psych/Mental Status: Normal Affect, Appropriate Vital Signs Temp Pulse Resp BP Pulse Ox 36.6 C 90 18 111/50 L 96 03/16/19 08:18 03/16/19 08:18 03/16/19 08:18 03/16/19 08:18 03/16/19 08:18 Oxygen Delivery Method Room Air Weight: 55 kg Body Mass Index (BMI) 19.5 Intake and Output for Last 24 Hours 03/14/19 03/15/19 03/16/19 23:59 23:59 23:59 Intake Total 2800 / 2800 1483 / 1483 Output Total 600 / 600 450 / 450 Balance 2200 / 2200 1033 / 1033 Microbiology Past 72 Hours 03/15/19 00:50 Respiratory Panel (PCR) - Final Mucosa - Nasopharyngeal 03/15/19 04:26 Streptococcus pneumoniae Antigen (M - Final Urine, Random 03/15/19 04:26 Legionella Antigen - Final Urine, Random Laboratory Tests Past 24 Hrs 03/15/19 03/15/19 03/15/19 10:55 10:55 12:00 WBC 22.8 H RBC 3.86 L Hgb 11.3 L Hct 34.4 L MCV 89.1 MCH 29.3 MCHC 32.8 RDW 13.7 RDW Differential 44.0 H Plt Count 459 H MPV 8.4 Immature Gran % (Auto) 0.600 Neut % (Auto) 90.2 H Lymph % (Auto) 2.8 L Powell % (Auto) 5.8 Eos % (Auto) 0.4 Baso % (Auto) 0.2 Absolute Neuts (auto) 20.6 H Absolute Lymphs (auto) 0.63 L Total Counted Not Reportable Differential Comment SCANNED Sodium 132 L Potassium 3.8 Chloride 100 Carbon Dioxide 24.0 Anion Gap 8 BUN 9 Creatinine 0.68 Estim Creat Clear Calc 36.36 Est GFR (MDRD) Af Amer 106 Est GFR (MDRD) Non-Af 87 BUN/Creatinine Ratio 13.2 Glucose 152 H Calcium 8.5 MRSA (PCR) Negative 03/16/19 03/16/19 05:42 05:42 WBC 16.4 H RBC 3.53 L Hgb 10.3 L Hct 31.7 L MCV 89.8 MCH 29.2 MCHC 32.5 RDW 13.9 RDW Differential 44.7 H Plt Count 414 MPV 9.2 Immature Gran % (Auto) 0.400 Neut % (Auto) 85.0 H Lymph % (Auto) 5.1 L Powell % (Auto) 8.3 Eos % (Auto) 1.0 Baso % (Auto) 0.2 Absolute Neuts (auto) 14.0 H Absolute Lymphs (auto) 0.83 Total Counted Not Reportable Differential Comment Sodium 136 Potassium 3.4 L Chloride 104 Carbon Dioxide 25.0 Anion Gap 7 BUN 6 L Creatinine 0.59 Estim Creat Clear Calc 36.36 Est GFR (MDRD) Af Amer 125 Est GFR (MDRD) Non-Af 103 BUN/Creatinine Ratio 10.2 Glucose 110 H Calcium 8.3 L MRSA (PCR) Discharge Diet: No Restrictions Discharge Activity: Return to Normal Activity Call your doctor if you observe: Fever of 101 or Higher, Shortness of breath Home Medications: Medications to take at Discharge Losartan Potassium 100 mg PO DAILY 01/26/19 Acetaminophen [Tylenol Tablet] 650 mg PO Q6H PRN PRN tablet 01/30/19 Amlodipine [Norvasc] 5 mg PO DAILY 03/05/19 Apixaban [Eliquis] 5 mg PO BID #74 tablet 03/05/19 Furosemide [Lasix] 20 mg PO DAILY 03/14/19 Amoxicillin/Potassium Clav [Augmentin 875-125 Tablet] 1 each PO BID #6 tablet 03/16/19 Doxycycline 100 mg PO BID #6 capsule 03/16/19 Guaifenesin [Mucinex] 1,200 mg PO BID tablet 03/16/19 Following Prescrptions Were Given to Patient: Amoxicillin/Potassium Clav [Augmentin 875-125 Tablet] 1 each PO BID #6 tablet Doxycycline 100 mg PO BID #6 capsule Primary Care Physician: Joon Lujan Chi, MD [Primary Care Provider] - Within 2 Weeks Disposition: [facility] facility Minutes spent on discharge:: 32 Patient Condition:: Good Medical Necessity - Tobacco Use Smoking Status: Never smoker Tobacco Use: Non-smoker Meaningful Use Info Meaningful Use Diagnoses (Choose all that apply): None applicable Code Visit Inpatient E&M: 40254 Disch Hosp
--- NOTE | 2019-03-16 12:23 | CASEMGMT ---
Social Work Note Pt is discharging back to [facility] today. EMI faxed completed discharge paperwork to [facility] including transfer to extended care facility, signed medication list and any scripts. Original in SNF folder and copy on pt's chart. Per previous notes, pt's son Fili is able to transport pt and will be at [facility] in the afternoon to transport pt back to [facility]. EMI placed a call to Evelia at [facility] and updated her on discharge today and that Fili will be transporting pt later today. Evelia states understanding. [facility]valescent [facility] in [facility] is not needed as pt is from skilled side at [facility] and will be returning skilled at discharge. Plan: Pt to return to [facility] skilled today with pt's son Fili transporting pt Michela Sebastian HAND CELL TUBER, DOOR TO DOOR SALESMAN
== END 2019-03-16 13:59 | disposition skilled nursing facility (03) | DRG 871 ==
LOC: ED 19:50 → MS3 20:16
PROVIDERS: Student in an Organized Health Care Education/Training Program; Admitting Provider Internal Medicine; Emergency Provider Emergency Medicine; Family Provider Family Medicine Geriatric Medicine; PCP Family Medicine Geriatric Medicine; Referring Provider Internal Medicine
DX: A41.9 Sepsis, unspecified organism (principal); J15.6 Pneumonia due to other Gram-negative bacteria; G93.41 Metabolic encephalopathy; I82.401 Acute embolism and thrombosis of unspecified deep veins of right lower extremity; E87.1 Hypo-osmolality and hyponatremia; I71.9 Aortic aneurysm of unspecified site, without rupture; F03.90 Unspecified dementia, unspecified severity, without behavioral disturbance, psychotic disturbance, mood disturbance, and anxiety; I10 Essential (primary) hypertension; J44.9 Chronic obstructive pulmonary disease, unspecified; Z79.01 Long term (current) use of anticoagulants
CPT/HCPCS: 36415; 71046; 80048; 81001; 83605; 85025; 87070; 87205; 87449; 87633; 87641; 93005; 94667; 99285; J7030; J7050; P9612; A4216

== ENCOUNTER → 2019-05-05 13:59 | Outpatient (CLI) | payer MEDICARE, OTHER, SELFPAY ==
--- NOTE | 2019-05-05 14:04 | VDLE_ITS ---
Reason For Study: edema RIGHT LEFT CFV, FV, Pop V, and T/P Trunk are partially GSV is normal. compressible with decreased flow. DVT is CFV is compressible, spontaneous, phasic, hypoechoic competent, and demonstrates normal GSV is noncompressible above the knee. augmentation. PTV is compressible. FV is compressible, spontaneous, phasic, RT PerV is compressible. competent and demonstrates normal Procedure augmentation. Exam performed in department. POP V is compressible, spontaneous, phasic, The exam was diagnostic. competent and demonstrates normal A preliminary report was called and/or faxed augmentation. to Dr. Lujan. T/P Trunk is compressible. PTV is compressible. LT PerV is compressible. Interpretation Summary Acute deep vein thrombosis is noted in the right common femoral vein. Acute deep vein thrombosis is noted in the right femoral vein. Acute deep vein thrombosis is noted in the right popliteal vein. Acute deep vein thrombosis is noted in the right tibio-peroneal trunk. The right posterior tibial vein and peroneal vein are patent and compressible. Deep veins of the left lower extremity are patent and compressible segmentally. There is no evidence of left lower extremity deep vein thrombosis. Valvular competence appears intact within the proximal deep venous system on the left . Acute superficial thrombophlebitis is noted in the right great saphenous vein above the knee. The left great saphenous vein is patent and compressible segmentally. Ordering Physician: Joon Lujan Performed By: Yamil Black RVT
[2019-05-05 17:22] LABS: Absolute Lymphocyte Count 1.53 X10^3/ul (0.83-4.51); Basophil# 0.03 X10^3/uL; Basophil% 0.3 % (0-1); Eosinophil# 0.12 X10^3/uL; Eosinophils% 1.4 % (0-5); Hematocrit 41.1 % (37-47); Hemoglobin 12.9 g/dl (12.0-15.0); Lymphocyte # 1.53 X10^3/ul (4.0); Lymphocyte % 17.7 % (19-41); Mean Corp Hgb Conc 31.4 g/gl (32-36); Mean Corpuscular Hgb 28.8 pg (27.0-32.0); Mean Corpuscular Volume 91.7 fL (81-99); Mean Platelet Vol. 10.4 fl (6.2-12.0); Monocyte# 0.94 X10^3/uL; Monocyte% 10.9 % (0-10); Neutrophil # 6.01 X10^3/uL (2.7-7.7); Neutrophil % 69.5 % (47-70); Platelet Count 194 K/mm3 (150-450); RBC Distribution Width CV 14.9 % (11.6-14.6); RBC Distribution Width SD 50.3 fl (35.1-43.9); Red Blood Count 4.48 M/mm3 (4.2-5.4); White Blood Count 8.7 K/mm3 (4.4-11.0)
[2019-05-05 17:35] LABS: POSITIVE COUNT NO; POSITIVE DIFFERENTIAL NO; POSITIVE MORPHOLOGY NO
[2019-05-05 17:40] LABS: Vitamin D,25 Hydroxy 18.4 ng/mL (29.95-100.01)
[2019-05-05 17:43] LABS: ALB/GLOB Ratio 0.9 RATIO (0.9-2.4); AST(SGOT) 22 U/L (15-37); Alanine Aminotransfer ALT/SGPT 23 U/L (13-56); Albumin, Serum 3.6 g/dL (3.2-5.0); Alkaline Phosphatase 108 U/L (45-117); Anion Gap 5 (5-15); BUN 19 mg/dL (7-18); BUN/Creat Ratio 24.7 RATIO (10-20); Calcium,Total 9.2 mg/dL (8.5-10.1); Chloride 104 mmol/L (98-107); Creatinine, Serum 0.77 mg/dL (0.55-1.02); EST Glomerular Filtration Rate 76 mL/min (>60); Est Glom Filt Rate - Afr Amer 92 mL/min (>60); Globulin 3.9 g/dL (2.2-4.2); Glucose 98 mg/dL (74-106); Potassium 4.5 mmol/L (3.5-5.1); Protein, Total 7.5 g/dL (6.4-8.2); Sodium Level 139 mmol/L (136-145); Thyroid Stim Hormone (TSH) 0.75 uIU/mL (0.358-3.74)
== END ==
PROVIDERS: Family Provider Family Medicine Geriatric Medicine; PCP Family Medicine Geriatric Medicine; Referring Provider Family Medicine Geriatric Medicine; Visit Provider Family Medicine Geriatric Medicine
DX: R60.0 Localized edema (principal); E55.9 Vitamin D deficiency, unspecified; I10 Essential (primary) hypertension
CPT/HCPCS: 36415; 80053; 82306; 84443; 85025; 93970

== ENCOUNTER → 2019-05-19 13:03 | Outpatient (CLI) | payer MEDICARE, OTHER, SELFPAY ==
[2019-05-11 13:55] VITALS: BMI 24.1
--- NOTE | 2019-05-19 13:05 | ECHOD_ITS ---
Reason For Study: R/O CHF Procedure This was a 2D Doppler, Color Flow transthoracic echocardiogram. The study was technically difficult. Contrast injection was performed. Exam performed in department. Left Ventricle Normal LV size. Sigmoid septum. Mid cavitary false tendon noted. Left ventricular systolic function is normal. The estimated ejection fraction is 65 %. There is evidence of diastolic dysfunction. No regional wall motion abnormalities noted. Right Ventricle Normal RV size. Normal systolic function. Atria The left atrium is mildly enlarged. Normal right atrium. No doppler evidence for ASD. Bubble contrast study negative for right to left interatrial shunt. Mitral Valve There is moderate mitral annular calcification. Anterior leaflet diffuse mitral valve thickening. Mild focal mitral valve calcification of the anterior leaflet. Trivial mitral valve insufficiency. Tricuspid Valve Normal tricuspid valve. Mild tricuspid valve insufficiency. Right ventricular systolic pressure estimated to be 34 mmHg. Aortic Valve Trisinus/trileaflet aortic valve. Mild focal aortic valve calcification. Trivial aortic valve insufficiency. Pulmonic Valve The pulmonic valve is not well visualized. Mild (1+) pulmonic valve insufficiency. Great Vessels Normal sized aortic root. Pericardium/Pleural No pericardial effusion. Medication 22 gauge I.V. with prn adaptor inserted into right arm. Performed a rapid injection of agitated mix of 9 cc saline and 1cc air to assess for atrial septal defect. MMode/2D Measurements & Calculations LVIDd: 4.1 cm IVSd: 1.1 cm Ao root diam: 3.3 cm LVIDs: 2.7 cm LVPWd: 1.0 cm LA dimension: 3.0 cm FS: 33.5 % LAV(MOD-bp): 35.5 ml LA A4 area: 13.1 cm2 RA A4 area: 8.7 cm2 LAV(MOD-bp) Indexed: 22.0 ml/m2 LAV(MOD-sp2): 35.6 ml LAV(MOD-sp4): 31.1 ml Time Measurements MV dec time: 0.23 sec Doppler Measurements & Calculations MV E max larry: 71.2 cm/sec Lat Peak E' Larry: 4.9 cm/sec Med Peak E' Larry: 4.9 cm/sec MV A max larry: 118.6 cm/sec E/E' lat: 14.5 E/E' med: 14.5 MV E/A: 0.60 MV V2 max: 128.4 cm/sec MV P1/2t max larry: 84.7 cm/sec Ao V2 max: 121.5 cm/sec MV max P.6 mmHg MV P1/2t: 81.0 msec Ao max P.9 mmHg MV V2 mean: 71.7 cm/sec MV dec slope: 306.6 cm/sec2 MV mean P.4 mmHg MV V2 VTI: 28.9 cm MVA(P1/2t): 2.7 cm2 AI max larry: 504.7 cm/sec LV V1 max: 84.1 cm/sec PA V2 max: 73.1 cm/sec AI max P.9 mmHg LV V1 max P.8 mmHg AI dec slope: 323.4 cm/sec2 AI P1/2t: 457.1 msec PI end-d larry: 98.4 cm/sec TR max larry: 277.8 cm/sec TR max P.9 mmHg Interpretation Summary The study was technically difficult. Contrast injection was performed. Left ventricular systolic function is normal. The estimated ejection fraction is 65 %. Sigmoid septum. Mid cavitary false tendon noted. The left atrium is mildly enlarged. There is moderate mitral annular calcification. Anterior leaflet diffuse mitral valve thickening. Mild focal mitral valve calcification of the anterior leaflet. Trivial mitral valve insufficiency. Mild tricuspid valve insufficiency. Mild focal aortic valve calcification. Trivial aortic valve insufficiency. Mild (1+) pulmonic valve insufficiency. Right ventricular systolic pressure estimated to be 34 mmHg. There is evidence of diastolic dysfunction. Bubble contrast study negative for right to left interatrial shunt. Ordering Physician: Asaf Puentes Referring Physician: Joon Lujan Chi Performed By: Romaine Vazquez RCS
== END ==
PROVIDERS: Family Provider Family Medicine Geriatric Medicine; PCP Family Medicine Geriatric Medicine; Referring Provider Internal Medicine Medical Oncology; Visit Provider Internal Medicine Medical Oncology
DX: I34.0 Nonrheumatic mitral (valve) insufficiency (principal); I82.401 Acute embolism and thrombosis of unspecified deep veins of right lower extremity; R79.89 Other specified abnormal findings of blood chemistry
CPT/HCPCS: 93306; A4216

== ENCOUNTER 2019-06-07 18:41 | Observation (INO) | payer MEDICARE, OTHER, SELFPAY ==
[2019-05-11 13:55] VITALS: BMI 24.1
[2019-06-07 18:45] VITALS: BP 169/88; PULSE 108; RESP 23; TEMP 36.7; O2SAT 100; BMI 21.7
--- NOTE | 2019-06-07 19:07 | CT_ITS ---
STUDY: CT BRAIN WITHOUT CONTRAST REASON FOR EXAM: Female, 83 years old. Confusion. RADIATION DOSAGE (If Supplied By Facility): CTDIvol = ( 44.99 ) mGy, DLP = ( 863.60 ) mGycm TECHNIQUE: Transaxial CT imaging of the brain was performed without administration of intravenous contrast material. Individualized dose optimization techniques were used for this CT. COMPARISON: January 20, 2019 FINDINGS: Normal soft tissue structures. Normal calvarium. There is mild cerebral atrophy with widening of the extra-axial spaces and ventricular dilatation. There are areas of decreased attenuation within the white matter tracts of the supratentorial brain, consistent with microvascular disease changes. Normal basal ganglia and thalami. Normal brainstem. Normal cerebellum. There is no intracranial hemorrhage. There are no findings of an acute ischemic infarction. Normal visualized paranasal sinuses. CT/Brain/Head without Contrast IMPRESSION: Chronic involutional changes of the brain. Small vessel ischemia. Electronically Signed: Viji Callahan MD at 19:55 EDT Tel , Service support ,
--- NOTE | 2019-06-07 19:08 | EKG12_ITS ---
Test Reason : WEAKNESS Blood Pressure : / mmHG Vent. Rate : 108 BPM Atrial Rate : 108 BPM P-R Int : 180 ms QRS Dur : 080 ms QT Int : 338 ms P-R-T Axes : 058 -43 106 degrees QTc Int : 452 ms Sinus tachycardia Possible Left atrial enlargement Left axis deviation Left ventricular hypertrophy Nonspecific T wave abnormality Abnormal ECG Confirmed by PETE BOOTHE, MARYLIN ([id number]), supervising film or videotape editor ROBERTO CARLOS GRIMM ([id number]) on 06/11/2019 11:51:15 AM Referred By: ARISTEO Confirmed By:MARYLIN FREEMAN MD
--- NOTE | 2019-06-07 19:09 | ED.VIS.GEN ---
History of Present Illness Chief Complaint: Weakness Detail of Chief Complaint: Weakness Informant: Family Onset: Days Current Severity: Moderate Maximum Severity: Moderate Narrative: Patient reportedly was taken to a doctor's visit with her vascular surgeon at [facility]. Because of some confusion and slurred speech she was taken to the emergency room. He was found to have a UTI. Son states that she was discharged from the hospital 2 days later on the fifth. She still was confused at that time. Son states they have struggled to get her to the bathroom and to eat since getting her home. She has reported been taking her antibiotics. Today another family member found the patient on the floor next to her bed. She is currently on Eliquis. 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 Comment: 4 mm January 2019 and right renal hilum (3) Asthma exacerbation in COPD Status: Chronic (4) Dementia Status: Chronic (5) Descending aortic aneurysm Status: Chronic Comment: 3.4 cm in January 2019 (6) Hypertension Status: Chronic Past Medical History - Allergies and Home Meds Allergies/Adverse Reactions: Allergies Sulfa (Sulfonamide Antibiotics) Allergy (Verified 05/11/19 13:47) Hives Primary Care Physician: Joon Lujan Chi, MD [Primary Care Provider] - Prior records reviewed: Yes Past Medical History: - - Reviewed Surgical History: cholecystectomy, tonsillectomy Smoking Status: Never smoker - Family History Maternal Family History: Family History (Last Reviewed 05/12/19 @ 11:26 by Josefina Mcqueen RN) Mother Cancer Father Cancer Family History: Reports: Cancer - Thyroid Paternal Family History: Family History (Last Reviewed 05/12/19 @ 11:26 by Josefina Mcqueen RN) Mother Cancer Father Cancer Family History: Reports: Cancer - colon Review of Systems ROS: Unable to Obtain - History provided by son at bedside. He states they have not checked her temperature. She has not had poor appetite. Physical Exam Vital Signs/Narrative: Vital Signs Temp Pulse Resp BP Pulse Ox 06/07/19 18:45 98.1 F 108 H 23 H 169/88 H 100 General: Well nourished, Well developed, - - Resting with her eyes closed. She will open eyes to voice but will allow son to do all the talking. Neck: Supple Cardiovascular: Regular rhythm, Tachycardia Respiratory: No distress, CTA bilaterally Abdomen: Soft, Nontender Extremities: - - 2+ edema Skin: Normal color Neurological: - - Resting with eyes closed. She will open eyes briefly to voice. Diagnostic/Tx/Re-eval Abnormal Lab Results 06/07/19 06/07/19 06/07/19 19:02 19:02 19:02 WBC 10.3 RBC 5.23 Hgb 15.6 H Hct 46.6 MCV 89.1 MCH 29.8 MCHC 33.5 RDW 14.4 RDW Differential 46.4 H Plt Count 253 MPV 10.8 Immature Gran % (Auto) 0.100 Neut % (Auto) 78.2 H Lymph % (Auto) 8.9 L Trigg % (Auto) 12.5 H Eos % (Auto) 0.2 Baso % (Auto) 0.1 Absolute Neuts (auto) 8.0 H Absolute Lymphs (auto) 0.91 Total Counted Not Reportable Sodium 132 L Potassium 3.7 Chloride 100 Carbon Dioxide 26.0 Anion Gap 6 BUN 24 H Creatinine 0.82 Estim Creat Clear Calc 47.81 Est GFR (MDRD) Af Amer 85 Est GFR (MDRD) Non-Af 71 BUN/Creatinine Ratio 29.3 H Glucose 115 H Lactic Acid 1.5 Calcium 9.7 Total Bilirubin 0.90 Direct Bilirubin 0.13 AST 43 H ALT 36 Alkaline Phosphatase 125 H Troponin I Total Protein 8.6 H Albumin 4.0 Globulin 4.6 H Urine Color Urine Clarity Urine pH Ur Specific [place] Urine Protein Urine Glucose (UA) Urine Ketones Urine Occult Blood Urine Nitrite Urine Bilirubin Urine Urobilinogen Ur Leukocyte Esterase Urine RBC Urine WBC Ur Squamous Epith Cells Urine Bacteria Hyaline Casts Urine Mucus 06/07/19 06/07/19 19:02 22:05 WBC RBC Hgb Hct MCV MCH MCHC RDW RDW Differential Plt Count MPV Immature Gran % (Auto) Neut % (Auto) Lymph % (Auto) Trigg % (Auto) Eos % (Auto) Baso % (Auto) Absolute Neuts (auto) Absolute Lymphs (auto) Total Counted Sodium Potassium Chloride Carbon Dioxide Anion Gap BUN Creatinine Estim Creat Clear Calc Est GFR (MDRD) Af Amer Est GFR (MDRD) Non-Af BUN/Creatinine Ratio Glucose Lactic Acid Calcium Total Bilirubin Direct Bilirubin AST ALT Alkaline Phosphatase Troponin I < 0.015 Total Protein Albumin Globulin Urine Color Yellow Urine Clarity Clear Urine pH 6.0 Ur Specific [place] 1.020 Urine Protein 30 H Urine Glucose (UA) Normal Urine Ketones 50 H Urine Occult Blood 150 H Urine Nitrite Negative Urine Bilirubin Negative Urine Urobilinogen Normal Ur Leukocyte Esterase Negative Urine RBC 0-5 SEEN Urine WBC 0 SEEN Ur Squamous Epith Cells 0-5 SEEN Urine Bacteria 0 SEEN Hyaline Casts 0-5 SEEN Urine Mucus 0 SEEN Clinical Impression(s) from Imaging Studies Brain CT 06/07/19 19:07 IMPRESSION: Chronic involutional changes of the brain. Small vessel ischemia. Electronically Signed: Viji Callahan MD at 19:55 EDT Tel , Service support , Chest X-Ray 06/07/19 19:34 IMPRESSION: No acute cardiopulmonary process. Electronically Signed: Viji Callahan MD at 19:58 EDT Tel , Service support , - EKG Initial EKG Interpretation: - - Sinus tach at 108 with nonspecific lateral T wave flattening. - Medical Decision Making Patient's work-up has not revealed any acute cause of her decreased alertness today. There is no sign of trauma from her reported fall. On repeat evaluation patient will open her eyes and answer questions appropriately. Test results were discussed with patient at bedside. He feels that she will need hospitalization for rehab placement and has [facility] at [facility] past. I will speak with the hospitalist. ED Disposition - Plan for ED Patient: Disposition: Acute Care Hospital [facility] Diagnosis: Weakness Referrals: Jono Lujan Chi, MD [Primary Care Provider] -
--- NOTE | 2019-06-07 19:34 | RAD_ITS ---
STUDY: X-RAY CHEST REASON FOR EXAM: Female, 83 years old. General weakness. TECHNIQUE: Single frontal view of the chest. COMPARISON: January 29 and March 14, 2019 FINDINGS: There is a stable curvilinear hazy opacity at the left lung base. There is a vague nodular opacity within the right upper lung that has decreased in size since the prior examination. There is no new focal consolidation. Normal size heart. Normal mediastinum and patricia. Normal visualized pulmonary arteries. There is atherosclerotic calcification of the aortic arch with tortuosity. Normal visualized thoracic spine. Normal visualized ribs, clavicles, and shoulders. There is no demonstrated abnormality of the visualized soft tissue structures of the upper abdomen. RAD/Chest 1 View (Portable) IMPRESSION: No acute cardiopulmonary process. Electronically Signed: Viji Callahan MD at 19:58 EDT Tel , Service support ,
[2019-06-07 19:43] LABS: Absolute Lymphocyte Count 0.91 X10^3/ul (0.83-4.51); Basophil# 0.01 X10^3/uL; Basophil% 0.1 % (0-1); Eosinophil# 0.02 X10^3/uL; Eosinophils% 0.2 % (0-5); Hematocrit 46.6 % (37-47); Hemoglobin 15.6 g/dl (12.0-15.0); Lymphocyte # 0.91 X10^3/ul (4.0); Lymphocyte % 8.9 % (19-41); Mean Corp Hgb Conc 33.5 g/gl (32-36); Mean Corpuscular Hgb 29.8 pg (27.0-32.0); Mean Corpuscular Volume 89.1 fL (81-99); Mean Platelet Vol. 10.8 fl (6.2-12.0); Monocyte# 1.28 X10^3/uL; Monocyte% 12.5 % (0-10); Neutrophil # 8.02 X10^3/uL (2.7-7.7); Neutrophil % 78.2 % (47-70); Platelet Count 253 K/mm3 (150-450); RBC Distribution Width CV 14.4 % (11.6-14.6); RBC Distribution Width SD 46.4 fl (35.1-43.9); Red Blood Count 5.23 M/mm3 (4.2-5.4); White Blood Count 10.3 K/mm3 (4.4-11.0)
[2019-06-07 19:44] LABS: POSITIVE COUNT NO; POSITIVE DIFFERENTIAL NO; POSITIVE MORPHOLOGY NO
[2019-06-07 19:54] LABS: AST(SGOT) 43 U/L (15-37); Alanine Aminotransfer ALT/SGPT 36 U/L (13-56); Alkaline Phosphatase 125 U/L (45-117); Anion Gap 6 (5-15); BUN 24 mg/dL (7-18); BUN/Creat Ratio 29.3 RATIO (10-20); Bilirubin, Direct 0.13 mg/dL (0.00-0.30); Calcium,Total 9.7 mg/dL (8.5-10.1); Chloride 100 mmol/L (98-107); Creatinine, Serum 0.82 mg/dL (0.55-1.02); EST Glomerular Filtration Rate 71 mL/min (>60); Est Glom Filt Rate - Afr Amer 85 mL/min (>60); Estimated Creatinine Clearance 47.81 ml/min; Globulin 4.6 g/dL (2.2-4.2); Glucose 115 mg/dL (74-106); Lactic Acid 1.5 mmol/L (0.4-2.0); Potassium 3.7 mmol/L (3.5-5.1); Protein, Total 8.6 g/dL (6.4-8.2); Sodium Level 132 mmol/L (136-145)
[2019-06-07 21:08] VITALS: BP 180/95; PULSE 100; RESP 27; O2SAT 100
[2019-06-07 21:51] VITALS: BP 186/96; PULSE 101; RESP 35; TEMP 36.7; O2SAT 100
[2019-06-07 22:00] VITALS: BP 181/93; PULSE 100; RESP 33; TEMP 36.7; O2SAT 100
[2019-06-07 22:09] LABS: Bacteria 0 SEEN /hpf (None Seen); Mucous, Urine 0 SEEN /hpf (<or=2+); White Blood Cells 0 SEEN /hpf (0-5)
[2019-06-07] MEDS: 0.9% Normal Saline 1,000 ML 15 ML IV (22:11)
[2019-06-07 22:13] LABS: Color, Urine Yellow (Yellow); Glucose, Dipstick Normal (Normal); Ketone-Dipstick 50 mg/dl (Negative); Leukocyte Esterase-Dipstick Negative /ul (Negative); Nitrite-Dipstick Negative (Negative); Occult Blood-Urine 150 /ul (Negative); Protein-Dipstick 30 mg/dl (Negative); Urine Bilirubin Dipstick Negative (Negative); Urine Clarity Clear (Clear); Urine Urobilinogen Normal (Normal)
[2019-06-07 22:26] LABS: Hyaline Cast 0-5 SEEN /lpf (0-5); Red Blood Cells-Urine 0-5 SEEN /hpf (0-5); Squamous Epithelial Cells - UA 0-5 SEEN /hpf (5-10)
[2019-06-07 23:00] VITALS: BP 161/82; PULSE 103; RESP 19; TEMP 36.9; O2SAT 97
--- NOTE | 2019-06-07 23:29 | PCM.HP.STD ---
Problem List (1) Hypertension Status: Chronic (2) Adult failure to thrive Status: Acute History of Present Illness Date of Admission: 06/07/19 Chief Complaint: weakness The patient is a 83 year old F with a significant history of hypertension; and blood clot in her right groin who presented to the emergency department with weakness. Associated with her symptoms is lethargy and sleepiness. Patient's family remove the frame of her bed and put her bed in a low lying position. Family found her lying on the floor of the room beside her bed with a walker toppled over. Her family reported that recently she was so weak that she had to be carried. Patient follows up with vascular surgeon because of blood clot in her right groin. Recently she went to the vascular surgeon's office and was referred to the emergency department at [facility], because of slurred speech. She ended up being diagnosed with UTI and was started on Cefdinir. Per family patient was at the [facility] not too long ago and family is hoping that she can go there again for rehab. Past Medical History Past Medical History (Chronic Problems): Chronic Problems Hypertension (Chronic) Descending aortic aneurysm (Chronic) 3.4 cm in January 2019 Duodenal diverticulum (Chronic) Large Aneurysm of right renal artery (Chronic) 4 mm January 2019 and right renal hilum Pulmonary cavitary lesion (Chronic) AFB's negative and Quantiferon Gold also negative Dementia (Chronic) Asthma exacerbation in COPD (Chronic) Acute deep vein thrombosis (DVT) of right lower extremity (Chronic) Allergies Sulfa (Sulfonamide Antibiotics) Allergy (Verified 05/11/19 13:47) Hives Home Medications: Ambulatory Orders Medication Instructions Recorded Losartan Potassium 100 mg PO DAILY 01/26/19 Acetaminophen [Tylenol Tablet] 650 mg PO Q6H PRN PRN tablet 01/30/19 Amlodipine [Norvasc] 5 mg PO DAILY 03/05/19 Apixaban [Eliquis] 10 mg PO BID 06/07/19 Cefdinir 300 mg PO BID 06/07/19 Surgical History: Surgical History (Last Reviewed 06/08/19 @ 03:57 by Asaf Puente MD) History of cholecystectomy Z90.49 Surgical History: cholecystectomy, tonsillectomy Lives: With Family Smoking Status: Never smoker Alcohol: None - *Family History Maternal Family History: Family History (Last Reviewed 06/08/19 @ 00:57 by Asaf Puente MD) Mother Cancer Father Cancer History Items: Cancer - Thyroid Paternal Family History: Family History (Last Reviewed 06/08/19 @ 00:57 by Asaf Puente MD) Mother Cancer Father Cancer History Items: Cancer - colon Review of Systems Constitutional: Reports: Anorexia, Weakness, Fatigue. Denies: Fever, Weight Change HEENT: Denies: Head Aches, Sinus Congestion, Sinus Drainage Cardiovascular: Denies: Chest Pain, Palpitations Respiratory: Denies: Cough, Shortness of breath at rest, Sputum production Gastrointestinal: Denies: Abdominal Pain, Nausea, Vomiting Genitourinary: Denies: Dysuria Musculoskeletal: Denies: Joint Pain, Joint Tenderness Skin: Denies: Rash, Wounds Neurological: Denies: Numbness, Tingling, Focal weakness Psychiatric: Denies: Anxiety, Depression, Homicidal Ideations, Suicidal Ideations Hematologic/ Lymphatic: Denies: Easy Bruising, Easy Bleeding VTE Information - Inpt Only VTE Present on Admission: No VTE Mechan Device Prophylaxis: None VTE Pharm Prophylaxis ordered?: No Reason prophylaxis not ordered:: Treatment Not Indicated - Continue Eliquis for DVT/PAD Patient Problems: Active and Suspected Problems Weakness (Acute) Adult failure to thrive (Acute) - Physical Exam General: Alert, - - Patient is oriented to self and situation. However she thought that she was at [facility] instead of [facility]. She is not oriented to the day; month or the year. HEENT: Atraumatic, PERRLA, EOMI, Normocephalic Neck: Supple, No JVD, Negative Carotid Bruits Lungs: Clear to auscultation, Normal air movement, Tachypneic Cardiovascular: No murmurs, Tachycardic Abdomen: Bowel Sounds Present, Soft, Non Tender Extremities: Tenderness - Right leg, - - Diminished pulses in the right foot. Skin: No rashes, No breakdown, - Musculoskeletal: No Tenderness to Palpation of Joints or Extremities Neurological: Cranial nerves II-XII grossly intact Psych/Mental Status: Normal Affect, Appropriate Vital Signs Temp Pulse Resp BP Pulse Ox 98.0 F 100 33 H 181/93 H 100 06/07/19 22:00 06/07/19 22:00 06/07/19 22:00 06/07/19 22:00 06/07/19 22:00 Oxygen Flow Rate (L/min) 2 Oxygen Delivery Method Nasal Cannula Weight: 61.1 kg Body Mass Index (BMI) 21.7 Laboratory Tests Past 24 Hrs 06/07/19 06/07/19 06/07/19 19:02 19:02 19:02 WBC 10.3 RBC 5.23 Hgb 15.6 H Hct 46.6 MCV 89.1 MCH 29.8 MCHC 33.5 RDW 14.4 RDW Differential 46.4 H Plt Count 253 MPV 10.8 Immature Gran % (Auto) 0.100 Neut % (Auto) 78.2 H Lymph % (Auto) 8.9 L [place] % (Auto) 12.5 H Eos % (Auto) 0.2 Baso % (Auto) 0.1 Absolute Neuts (auto) 8.0 H Absolute Lymphs (auto) 0.91 Total Counted Not Reportable Sodium 132 L Potassium 3.7 Chloride 100 Carbon Dioxide 26.0 Anion Gap 6 BUN 24 H Creatinine 0.82 Estim Creat Clear Calc 47.81 Est GFR (MDRD) Af Amer 85 Est GFR (MDRD) Non-Af 71 BUN/Creatinine Ratio 29.3 H Glucose 115 H Lactic Acid 1.5 Calcium 9.7 Total Bilirubin 0.90 Direct Bilirubin 0.13 AST 43 H ALT 36 Alkaline Phosphatase 125 H Troponin I Total Protein 8.6 H Albumin 4.0 Globulin 4.6 H Urine Color Urine Clarity Urine pH Ur Specific [place] Urine Protein Urine Glucose (UA) Urine Ketones Urine Occult Blood Urine Nitrite Urine Bilirubin Urine Urobilinogen Ur Leukocyte Esterase Urine RBC Urine WBC Ur Squamous Epith Cells Urine Bacteria Hyaline Casts Urine Mucus 06/07/19 06/07/19 19:02 22:05 WBC RBC Hgb Hct MCV MCH MCHC RDW RDW Differential Plt Count MPV Immature Gran % (Auto) Neut % (Auto) Lymph % (Auto) [place] % (Auto) Eos % (Auto) Baso % (Auto) Absolute Neuts (auto) Absolute Lymphs (auto) Total Counted Sodium Potassium Chloride Carbon Dioxide Anion Gap BUN Creatinine Estim Creat Clear Calc Est GFR (MDRD) Af Amer Est GFR (MDRD) Non-Af BUN/Creatinine Ratio Glucose Lactic Acid Calcium Total Bilirubin Direct Bilirubin AST ALT Alkaline Phosphatase Troponin I < 0.015 Total Protein Albumin Globulin Urine Color Yellow Urine Clarity Clear Urine pH 6.0 Ur Specific [place] 1.020 Urine Protein 30 H Urine Glucose (UA) Normal Urine Ketones 50 H Urine Occult Blood 150 H Urine Nitrite Negative Urine Bilirubin Negative Urine Urobilinogen Normal Ur Leukocyte Esterase Negative Urine RBC 0-5 SEEN Urine WBC 0 SEEN Ur Squamous Epith Cells 0-5 SEEN Urine Bacteria 0 SEEN Hyaline Casts 0-5 SEEN Urine Mucus 0 SEEN Assessment/Plan All Active Problems Community acquired pneumonia (Ruled-out) Sepsis (Acute) Gram-negative pneumonia (Acute) Weakness (Acute) Adult failure to thrive (Acute) The patient is a 83 year old F with a significant history of hypertension; and blood clot in her legs who presented to the emergency department with weakness and lethargy and was found on the floor of her room and also with anorexia consistent with likely adult failure to thrive. Adult failure to thrive Brain CT did not show any acute pathology PT and OT to work with and make recommendations. Check TSH; vitamin B12 and vitamin D level. Acute cystitis Probable resolving Patient has 1 more dose of Omnicef left; continue Sirs Patient with tachycardia and tachypnea. On appropriate antibiotics for UTI. For lethargy and weakness; and with her being found on the floor we will do respiratory pathogen panel. Hypertension: On presentation her blood pressure was not within goal. Patient took her night dose of amlodipine and losartan at the emergency department. Continue with these medications. Trend blood pressure and adjust blood pressure medication. DVT/PAD Patient to follow-up outpatient with vascular surgeon. Sandra continued DVT prophylaxis Not indicated since patient is on Eliquis Code Visit OBSV E&M: [id number] Initial observation care L3
--- NOTE | 2019-06-07 23:31 | ED.RN ---
FM WANTS TO GIVE NIGHT MEDS. WANTS TO GIVE ELIQUIS, CEFDINIR AND AMLODIPINE. ALL [address] ALBERTS[address] WENT TO CAR TO GET MEDS.
[2019-06-08] VITALS (7 sets, daily range): BP systolic 101–163; BP diastolic 50–85; PULSE 95–102; RESP 18–24; TEMP 36.8–37.3; O2SAT 94–100; BMI 22.5
[2019-06-08 06:49] LABS: Thyroid Stim Hormone (TSH) 0.91 uIU/mL (0.358-3.74)
--- NOTE | 2019-06-08 06:53 | NURSING ---
called hospitalist to clarify pts eliquis dosage. Dr. Miguel states to verify with son, called son and left a voicemail.
[2019-06-08] MEDS: amLODIPine 5 MG Tablet PO (08:46)
[2019-06-08] MEDS: Cefdinir 300 MG Capsule PO (08:46)
[2019-06-08 09:18] LABS: Vitamin B12 533 pg/mL (211-911)
[2019-06-08] MEDS: APIXABAN 5 MG TABLET 10 MG PO (10:15)
[2019-06-08] MEDS: Acetaminophen 325 MG Tablet 650 MG PO ×2 (11:33→17:59)
--- NOTE | 2019-06-08 11:49 | CASEMGMT ---
RN CM Assessment Presentation: Pneumonia, sepsis Intro role of CM and purpose of RN CM assessment to patient who is sleepy and not able to participate in assessment. Pt agreed to RN CM calling son. Call to Son Fili who states he is POA. Demographics, PCP and Pharmacy verified. Fili stated pt had declined past few days and sons had to assist carrying her to bathroom and with bathing. Son states he has appt to speak with [facility] today with this being dc plan. Discussed with son that if pt had recent 3 month SNF stay with dc early May as he is reporting- pt may be out of skilled [facility] days. She also would not be in new [facility] benefit period and SNF stay may be private pay. Son states he and his brothers would be able to assist with payment and would like referral sent to [facility]. PCP: [facility] Preferred Pharmacy: [facility] Insurance: [facility] Prescription Benefit: yes LNOK: SonFili. Living Arrangements: Pt lives in one story home with son Jerel Gaming. Son was standby assist for bathing and dressing, however pt was ambulating with wheeled walker. Sons assisted with household needs, meals, transportation. Transportation: sons drove DME: wheeled walker, cane, wheelchair HHC: none SW Referral: dc plan per son is for [facility]- aware may be self pay.EMI Jackson updated. Patient DC goals: SNF DC PLAN: [facility] RN ACM
--- NOTE | 2019-06-08 13:07 | CASEMGMT ---
Social Work Note SW received referral for SNF placement. Pt's son Fili would like pt placed at [facility]. Pt is currently in observation and pt would need three midnights for Medicare to pay for SNF. Per RN CARLA Metzger pt's family is aware that pt may be private pay and are agreeable to paying privately for SNF. Fili informed TYREL AGUIRRE that he will be going to [facility] today to speak with admissions. EMI placed a call to Evelia at [facility]. Per Evelia, pt was discharged from [facility] on 05/01/2019 and has 12 skilled days remaining. EMI faxed referral to [facility]. EMI not sure at this time when pt will be discharged. Plan: [facility] pending acceptance Michela Sebastian PLANT HEALTH MANAGER, [employer]AL[employer]URANCE LEAD
--- NOTE | 2019-06-08 15:22 | CHAPLAIN ---
patient is sleeping, left calling card
--- NOTE | 2019-06-08 15:26 | TREXTCAR_ITS ---
- Diet 06/08/19 00:38 Diet: Cardiac/Low Cholesterol Food consistency:: Regular Liquid Consistency:: Regular/Thin - Routine Orders/Code Status Code Status: Full Code - Therapies Weight Bearing: Full weight bearing Physical Therapy: Eval and Treat Occupational Therapy: Eval and Treat - Allergies/Procedures Done in Hospital Allergies/Adverse Reactions: Allergies Sulfa (Sulfonamide Antibiotics) Allergy (Verified 05/11/19 13:47) Hives Procedures: None - Type of Care/Length of Stay Estimated LOS: Convalescent Care Less Than 30 days Type of Care Needed: Skilled Rehab Potential: Fair Prognosis: Fair - Additional Orders/Day of Discharge Day of Discharge: 06/08/19 - Dietary and Speech Recommendations Dietitian Recommendations/Changes: Rec liberalize diet to Regular d/t hx poor po intake/wt loss [employer] 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 Rec continue ONS medpass - Follow Up Care Primary Care Physician: Joon Lujan Chi, MD [Primary Care Provider] - Within 2 Weeks
--- NOTE | 2019-06-08 15:28 | DS.PCM_ITS ---
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 Patient was found on the floor beside her bed with her walker toppled over. Apparently patient had to be carried. This patient was assessed for any signs of infection, none were found. Given her failure to thrive patient was seen by therapy who recommended skilled. Patient was accepted at the [facility], with the caveat of that this would not be covered by insurance as patient is straight Medicare and not meeting the requirements of admission for 3 midnights. Family apparently is going to oversee covering the cost. Patient is confused, pleasantly so, and will be discharged to the [facility] in stable condition. [] Patient Problems: Active and Suspected Problems Weakness (Acute) Adult failure to thrive (Acute) - Physical Exam General: Alert, No apparent distress, - - Pleasantly confused HEENT: Atraumatic, Normocephalic Oral: Moist Mucosa, No Gingival or Mucosal Lesions/ Ulcerations Neck: No Nodes, Thyroid Normal Size and Texture Lungs: Clear to auscultation, Normal air movement, No rhonchi, No wheeze, No rales Cardiovascular: Regular rate, Regular Rhythm, Normal S1, Normal S2, No murmurs Abdomen: Bowel Sounds Present, Soft, Non Tender, Non-Distended, No Hepato- splenomegaly Extremities: No edema, No Calf Tenderness Skin: No rashes, No breakdown Vital Signs Temp Pulse Resp BP Pulse Ox 37.3 C H 100 18 118/56 L 95 06/08/19 14:00 06/08/19 14:04 06/08/19 14:00 06/08/19 14:00 06/08/19 14:00 Oxygen Flow Rate (L/min) 2 Oxygen Delivery Method Room Air Weight: 55.9 kg Body Mass Index (BMI) 22.5 Intake and Output for Last 24 Hours 06/06/19 06/07/19 06/08/19 23:59 23:59 23:59 Intake Total 320.7 / 320.7 Output Total 100 / 100 Balance 220.7 / 220.7 Microbiology Past 72 Hours 06/08/19 05:04 Respiratory Panel (PCR) - Final Mucosa - Nasopharyngeal Laboratory Tests Past 24 Hrs 06/07/19 06/07/19 06/07/19 19:02 19:02 19:02 WBC 10.3 RBC 5.23 Hgb 15.6 H Hct 46.6 MCV 89.1 MCH 29.8 MCHC 33.5 RDW 14.4 RDW Differential 46.4 H Plt Count 253 MPV 10.8 Immature Gran % (Auto) 0.100 Neut % (Auto) 78.2 H Lymph % (Auto) 8.9 L [place] % (Auto) 12.5 H Eos % (Auto) 0.2 Baso % (Auto) 0.1 Absolute Neuts (auto) 8.0 H Absolute Lymphs (auto) 0.91 Total Counted Not Reportable Sodium 132 L Potassium 3.7 Chloride 100 Carbon Dioxide 26.0 Anion Gap 6 BUN 24 H Creatinine 0.82 Estim Creat Clear Calc 47.81 Est GFR (MDRD) Af Amer 85 Est GFR (MDRD) Non-Af 71 BUN/Creatinine Ratio 29.3 H Glucose 115 H Lactic Acid 1.5 Calcium 9.7 Total Bilirubin 0.90 Direct Bilirubin 0.13 AST 43 H ALT 36 Alkaline Phosphatase 125 H Troponin I Total Protein 8.6 H Albumin 4.0 Globulin 4.6 H Vitamin B12 Vit D 1,25-Dihydroxy TSH Urine Color Urine Clarity Urine pH Ur Specific [place] Urine Protein Urine Glucose (UA) Urine Ketones Urine Occult Blood Urine Nitrite Urine Bilirubin Urine Urobilinogen Ur Leukocyte Esterase Urine RBC Urine WBC Ur Squamous Epith Cells Urine Bacteria Hyaline Casts Urine Mucus 06/07/19 06/07/19 06/08/19 19:02 22:05 05:23 WBC RBC Hgb Hct MCV MCH MCHC RDW RDW Differential Plt Count MPV Immature Gran % (Auto) Neut % (Auto) Lymph % (Auto) [place] % (Auto) Eos % (Auto) Baso % (Auto) Absolute Neuts (auto) Absolute Lymphs (auto) Total Counted Sodium Potassium Chloride Carbon Dioxide Anion Gap BUN Creatinine Estim Creat Clear Calc Est GFR (MDRD) Af Amer Est GFR (MDRD) Non-Af BUN/Creatinine Ratio Glucose Lactic Acid Calcium Total Bilirubin Direct Bilirubin AST ALT Alkaline Phosphatase Troponin I < 0.015 Total Protein Albumin Globulin Vitamin B12 Vit D 1,25-Dihydroxy TSH 0.91 Urine Color Yellow Urine Clarity Clear Urine pH 6.0 Ur Specific [place] 1.020 Urine Protein 30 H Urine Glucose (UA) Normal Urine Ketones 50 H Urine Occult Blood 150 H Urine Nitrite Negative Urine Bilirubin Negative Urine Urobilinogen Normal Ur Leukocyte Esterase Negative Urine RBC 0-5 SEEN Urine WBC 0 SEEN Ur Squamous Epith Cells 0-5 SEEN Urine Bacteria 0 SEEN Hyaline Casts 0-5 SEEN Urine Mucus 0 SEEN 06/08/19 06/08/19 05:23 05:23 WBC RBC Hgb Hct MCV MCH MCHC RDW RDW Differential Plt Count MPV Immature Gran % (Auto) Neut % (Auto) Lymph % (Auto) [place] % (Auto) Eos % (Auto) Baso % (Auto) Absolute Neuts (auto) Absolute Lymphs (auto) Total Counted Sodium Potassium Chloride Carbon Dioxide Anion Gap BUN Creatinine Estim Creat Clear Calc Est GFR (MDRD) Af Amer Est GFR (MDRD) Non-Af BUN/Creatinine Ratio Glucose Lactic Acid Calcium Total Bilirubin Direct Bilirubin AST ALT Alkaline Phosphatase Troponin I Total Protein Albumin Globulin Vitamin B12 533 Vit D 1,25-Dihydroxy Pending TSH Urine Color Urine Clarity Urine pH Ur Specific [place] Urine Protein Urine Glucose (UA) Urine Ketones Urine Occult Blood Urine Nitrite Urine Bilirubin Urine Urobilinogen Ur Leukocyte Esterase Urine RBC Urine WBC Ur Squamous Epith Cells Urine Bacteria Hyaline Casts Urine Mucus Discharge Diet: No Restrictions Discharge Activity: Return to Normal Activity Home Medications: Medications to take at Discharge Losartan Potassium 100 mg PO DAILY 01/26/19 Acetaminophen [Tylenol Tablet] 650 mg PO Q6H PRN PRN tablet 01/30/19 Amlodipine [Norvasc] 5 mg PO DAILY 03/05/19 Apixaban [Eliquis] 10 mg PO BID 06/07/19 Acetaminophen [Tylenol Tablet] 650 mg PO Q6H PRN PRN tab 06/08/19 Apixaban [Eliquis] 5 mg PO BID tab 06/08/19 Melatonin 3 mg PO QHS PRN PRN tab 06/08/19 Primary Care Physician: Joon Lujan Chi, MD [Primary Care Provider] - Within 2 Weeks Disposition: Half-Way facility Minutes spent on discharge:: 28 Patient Condition:: Fair Medical Necessity - Tobacco Use Smoking Status: Never smoker Meaningful Use Info Meaningful Use Diagnoses (Choose all that apply): None applicable Code Visit OBSV E&M: 62572 Observation care discharge
--- NOTE | 2019-06-08 15:46 | CASEMGMT ---
Social Work Note Per physician pt is medically cleared to be discharged today. EMI placed a call to Evelia at [facility] and she is able to accept today. EMI placed a call to pt's son Fili and spoke with him regarding SNF placement. EMI informed Fili that pt will be private pay at SNF as pt won't get qualifying stay under Medicare and physician is ready to discharge pt today. Fili states he is at [facility] and speak with the EMI Ferguson in regards to financials and is agreeable to private pay at SNF. Fili states pt will need transportation arranged. EMI updated physician on discharge to [facility]. EMI faxed completed discharge paperwork to [facility] including transfer to extended care facility, signed medication list and any scripts. Original in SNF folder and copy on pt's chart. EMI completed PAS/RR in HENS. Original in SNF folder and copy on pt's chart. EMI arranged transportation through [facility] via cot for 5:00pm (pt has dementia and is confused, max assist of 2 for transfers and bed mobility). Transportation form completed and placed on SNF folder with copy on pt's chart. EMI placed a call to Evelia at [facility] and updated her on discharge and transportation time. EMI placed a call to pt's son Fili and updated him on transportation time. RN, charge nurse, and alumni secretary updated on transportation time. Plan: Pt to discharge to [facility] today skilled with [facility] transporting via cot at 5:00pm Michela KUHN, MILLER HELPER
--- NOTE | 2019-06-08 17:50 | NURSING ---
Report called to Deirdre the receiving nurse.
== END 2019-06-08 18:50 | disposition skilled nursing facility (03) ==
LOC: ED 23:44 → MS3 06-08 00:08
PROVIDERS: Admitting Provider Hospitalist; Emergency Provider Emergency Medicine; Family Provider Family Medicine Geriatric Medicine; PCP Family Medicine Geriatric Medicine
DX: R53.1 Weakness (principal); R62.7 Adult failure to thrive; R47.81 Slurred speech; J44.9 Chronic obstructive pulmonary disease, unspecified; I10 Essential (primary) hypertension; F03.90 Unspecified dementia, unspecified severity, without behavioral disturbance, psychotic disturbance, mood disturbance, and anxiety; Z91.81 History of falling; Z79.899 Other long term (current) drug therapy; Z68.22 Body mass index [BMI] 22.0-22.9, adult; Z86.718 Personal history of other venous thrombosis and embolism; Z79.01 Long term (current) use of anticoagulants; N30.00 Acute cystitis without hematuria; I73.9 Peripheral vascular disease, unspecified
CPT/HCPCS: 36415; 70450; 71045; 80048; 80076; 81001; 82607; 82652; 83605; 84443; 84484; 85025; 87040; 87086; 87633; 93005; 97162; 97166; 99218; 99285; J7030; A4216; G0378

== ENCOUNTER → 2019-07-27 11:40 | Outpatient (CLI) | payer MEDICARE, OTHER, SELFPAY ==
[2019-06-08 00:48] VITALS: BMI 22.5
--- NOTE | 2019-07-27 11:50 | VDLE_ITS ---
Reason For Study: edema RIGHT LEFT CFV, SFJ, FV are partially compressible with GSV is normal. decreased flow in vessels. CFV is compressible, spontaneous, phasic, POP V , PTV are non compressible. competent, and demonstrates normal PER V was not well visualized. augmentation. GSV is compressible. FV is compressible, spontaneous, phasic, Procedure competent and demonstrates normal Exam performed in department. augmentation. The exam was diagnostic. POP V is compressible, spontaneous, phasic, A preliminary report was called and/or faxed competent and demonstrates normal to Bridget at Dr. Lujan's office @ 12:16 pm. augmentation. T/P Trunk is compressible. PTV is compressible. LT PerV is compressible. Interpretation Summary Acute deep vein thrombosis is noted in the right common femoral vein and femoral vein, which are partially compressible and demonstrate reduced flow. Acute deep vein thrombosis is noted in the right popliteal vein, tibio-peroneal trunk, and posterior tibial vein, which are non-compressible. The right peroneal vein was not well visualized. Deep veins of the left lower extremity are patent and compressible segmentally. There is no evidence of left lower extremity deep vein thrombosis. Valvular competence appears intact within the proximal deep venous system on the left . The great saphenous veins appear bilaterally patent and compressible segmentally. Ordering Physician: Joon Lujan Referring Physician: Joon Lujan Chi Performed By: Oneida Reynolds, DIANA, RVT
[2019-07-27 16:31] LABS: Anion Gap 9 (5-15); BUN 17 mg/dL (7-18); BUN/Creat Ratio 22.8 RATIO (10-20); Calcium,Total 9.6 mg/dL (8.5-10.1); Chloride 105 mmol/L (98-107); Creatinine, Serum 0.75 mg/dL (0.55-1.02); EST Glomerular Filtration Rate 79 mL/min (>60); Est Glom Filt Rate - Afr Amer 95 mL/min (>60); Glucose 86 mg/dL (74-106); Potassium 3.6 mmol/L (3.5-5.1); Sodium Level 141 mmol/L (136-145)
== END ==
PROVIDERS: Family Provider Family Medicine Geriatric Medicine; PCP Family Medicine Geriatric Medicine; Referring Provider Family Medicine Geriatric Medicine; Visit Provider Family Medicine Geriatric Medicine
DX: I82.409 Acute embolism and thrombosis of unspecified deep veins of unspecified lower extremity (principal); R60.0 Localized edema
CPT/HCPCS: 36415; 80048; 93970

== ENCOUNTER 2019-08-10 13:40 | Emergency (ER) | payer MEDICARE, OTHER, SELFPAY ==
[2019-06-08 00:48] VITALS: BMI 22.5
[2019-08-10 13:42] VITALS: BP 148/71; PULSE 99; RESP 16; TEMP 36.8; O2SAT 96; O2SAT 97; BMI 25.5
--- NOTE | 2019-08-10 13:55 | CT_ITS ---
STUDY: CT BRAIN WITHOUT CONTRAST REASON FOR EXAM: Female, 83 years old. Contusion to the right side of the head following a fall. The patient is on anticoagulants. RADIATION DOSAGE (If Supplied By Facility): CTDIvol = ( 60.81 ) mGy, DLP = ( 1135.50 ) mGycm TECHNIQUE: Transaxial CT imaging of the brain was performed without administration of intravenous contrast material. Individualized dose optimization techniques were used for this CT. COMPARISON: Comparison is made with prior study dated June 07, 2019. FINDINGS: Normal soft tissue structures. Normal calvarium. There is mild cerebral atrophy with widening of the extra-axial spaces and ventricular dilatation. There are areas of decreased attenuation within the white matter tracts of the supratentorial brain, consistent with microvascular disease changes. Normal basal ganglia and thalami. Normal brainstem. Normal cerebellum. There is no intracranial hemorrhage. There are no findings of an acute ischemic infarction. Normal visualized paranasal sinuses. CT/Brain/Head without Contrast IMPRESSION: Chronic involutional changes of the brain. Electronically Signed: Quirino Martinez, at 14:41 EDT , Service support ,
--- NOTE | 2019-08-10 14:14 | ED.DCSUM_ITS ---
- ER Visit Summary Date of Service: 08/10/19 Chief Complaint: Head injury History of Present Illness: The patient is a 83 F who presents the emergency department after a fall. Patient states she fell during the night but does not remember why she fell. She is on Xarelto for a leg DVT. She has a history of dementia. The patient denies any headache or neck pain. She denies any arm or leg injuries. No nausea or vomiting. She was able to get up to her make up and eat breakfast and lunch today. Physical Examination: Afebrile vital signs stable Gen: Well-nourished well-developed Head: Normocephalic large scalp hematoma Eyes: Perrl EOMI ENT: TMs clear no rhinorrhea moist mucous membranes Neck: Supple no lymphadenopathy no JVD nontender CVS: Regular rate rhythm no murmurs normal S1-S2 Respiratory: No distress clear to auscultation bilaterally chest nontender Abdomen: Soft nontender nondistended normal bowel sounds no masses Back: Nontender Extremity: Nontender no edema Skin: Normal color no rash Neuro: alert orientated ?3 CN II-XII intact normal strength sensation reflexes gait cerebellar Psych: Normal affect normal mood Test Results: CT brain was obtained. This was negative for intracranial hemorrhage. Emergency Department Course and Treatment: Patient will be discharged home with supportive care. Return if worsening or concerns Impression: 1. Right forehead hematoma This note was generated with [employer] dictation software. It may contain incorrect words, spelling, and punctuation that were not noted in review of the chart prior to signing ED Disposition - Plan for ED Patient: Disposition: Home or Assisted Living Instructions: HEAD INJURY, No Wake-Up (Adult) Referrals: Joon Lujan Chi, MD [Primary Care Provider] - As Needed
[2019-08-10 15:08] VITALS: BP 165/95; RESP 16
--- NOTE | 2019-08-10 15:08 | ED.RN ---
REVIEWED D/C INSTRUCTIONS, FOLLOW UP CARE, AND S/S THAT WOULD WARRANT A RETURN TO THE ED WITH PT. PT VERBALIZED AN UNDERSTANDING AND DENIES FURTHER QUESTIONS FOR THIS RN. PT SKIN P/W/D, RESP EVEN AND UNLABORED, PT A&O X 3, NO DISTRESS NOTED. PT ASSISTED OUT OF ED IN WHEELCHAIR.
== END 2019-08-10 15:09 | disposition home or self-care (01) ==
PROVIDERS: Emergency Provider Emergency Medicine; Family Provider Family Medicine Geriatric Medicine; PCP Family Medicine Geriatric Medicine
DX: S00.83XA Contusion of other part of head, initial encounter (principal); W19.XXXA Unspecified fall, initial encounter; Y93.9 Activity, unspecified; I10 Essential (primary) hypertension; J44.9 Chronic obstructive pulmonary disease, unspecified; F03.90 Unspecified dementia, unspecified severity, without behavioral disturbance, psychotic disturbance, mood disturbance, and anxiety; Z79.01 Long term (current) use of anticoagulants; Z79.899 Other long term (current) drug therapy
CPT/HCPCS: 70450; 99282

== ENCOUNTER 2019-09-28 09:59 | Emergency (ER) | payer MEDICARE, OTHER, SELFPAY ==
[2019-09-28 10:00] VITALS: BP 157/79; PULSE 91; RESP 20; TEMP 36.9; O2SAT 99; BMI 25.1
--- NOTE | 2019-09-28 10:11 | RAD_ITS ---
STUDY: X-RAY CHEST REASON FOR EXAM: Female, 83 years old. Chest pain and discomfort. TECHNIQUE: Single AP portable view of the chest. COMPARISON: Comparison is made with prior study dated June 07, 2019. FINDINGS: EKG electrodes are seen. Stable mild pleural parenchymal changes at the left lung base. There is no demonstrated pleural abnormality. Normal size heart. Normal mediastinum and patricia. Normal visualized pulmonary arteries. There is atherosclerotic calcification of the aortic arch with tortuosity. There are diffuse degenerative changes of the visualized thoracic spine. Normal visualized ribs, clavicles, and shoulders. There is no demonstrated abnormality of the visualized soft tissue structures of the upper abdomen. RAD/Chest 1 View (Portable) IMPRESSION: Stable examination. No acute abnormality is seen. Electronically Signed: Quirino Martinez, at 10:55 EDT , Service support ,
--- NOTE | 2019-09-28 10:11 | EKG12_ITS ---
Test Reason : CP Blood Pressure : / mmHG Vent. Rate : 088 BPM Atrial Rate : 088 BPM P-R Int : 240 ms QRS Dur : 086 ms QT Int : 384 ms P-R-T Axes : 058 -37 058 degrees QTc Int : 464 ms Sinus rhythm with sinus arrhythmia with 1st degree A-V block Left axis deviation Moderate voltage criteria for LVH, may be normal variant Abnormal ECG Confirmed by CINDY SINGH ([id number]), online editor MAYA OTTO ([id number]) on 10/05/2019 9:11:14 AM Referred By: CATINA Confirmed By:CINDY SINGH
--- NOTE | 2019-09-28 10:29 | VDLE_ITS ---
Reason For Study: Chest pain RIGHT LEFT Rt CFV, SFJ, FV, PopV, T/P Trunk, PTV and GSV is normal. PeroV are partially compressible with CFV is compressible, spontaneous, phasic, minimal flow noted. competent, and demonstrates normal GSV is normal. augmentation. Procedure FV is compressible, spontaneous, phasic, Exam performed portable in ED. competent and demonstrates normal Compared to study done on 07/27/19. augmentation. A preliminary report was called and/or faxed POP V is compressible, spontaneous, phasic, to ED. competent and demonstrates normal augmentation. T/P Trunk is compressible. PTV is compressible. LT PerV is compressible. Interpretation Summary Acute deep vein thrombosis is noted in the right common femoral vein. Acute deep vein thrombosis is noted in the right femoral vein. Acute deep vein thrombosis is noted in the right popliteal vein. Acute deep vein thrombosis is noted in the right tibio-peroneal trunk. Acute deep vein thrombosis is noted in the right posterior tibial vein. Acute deep vein thrombosis is noted in the right peroneal vein. Deep veins of the left lower extremity are patent and compressible segmentally. There is no evidence of left lower extremity deep vein thrombosis. Valvular competence appears intact within the proximal deep venous system on the left . The great saphenous veins appear bilaterally patent and compressible segmentally. There has been no significant change since a prior study on 07/27/2019. Ordering Physician: Dee Christine Referring Physician: Joon Lujan Chi Performed By: Michela Ellison RVT
[2019-09-28 10:30] VITALS: O2SAT 97
--- NOTE | 2019-09-28 10:30 | CT_ITS ---
STUDY: CTA CHEST REASON FOR EXAM: Female, 83 years old. Chest pain. Bilateral numbness and tingling. RADIATION DOSAGE (If Supplied By Facility): CTDIvol = ( 4.83 ) mGy, DLP = ( 161.41 ) mGycm TECHNIQUE: The examination was performed with the intravenous administration of IV Isovue 370 100. Post-processing of the angiographic images was performed, with multiplanar reformation and 3D reconstruction. Individualized dose optimization techniques were used for this CT. COMPARISON: Comparison is made with prior study dated March 05, 2019. FINDINGS: Normal enhancement of the main pulmonary artery and right and left pulmonary arteries. Normal enhancement of the bilateral peripheral pulmonary arteries. There is no demonstrated pulmonary embolism. There is atherosclerotic calcification of the aortic arch with tortuosity. There is no demonstrated aortic dissection. Stable minimal dilatation of the proximal descending thoracic aorta with mural thrombus. This measures 3.4 cm. Normal heart and pericardium. Normal mediastinum. Normal hilar regions. Normal visualized trachea and bronchi. The lungs are well expanded. The previously seen cavitated nodular density in the posterior medial segment of the right lower lobe as almost completely resolved. There now is evidence of a 9.3 mm density most likely representing scarring. Stable mild scarring in the right middle lobe and lingular segment of the left upper lobe. Normal pleura. Normal chest wall structures. There are degenerative changes of thoracic spine. Small hiatal hernia. CT/CTA Chest W/WO Contrast IMPRESSION: No evidence of pulmonary embolism. The previously seen cavitary lesion in the right lower lobe has decreased in size as described. Scarring is seen at that level. Stable dilatation of the descending thoracic aorta. Electronically Signed: Quirino Martinez, at 12:17 EDT , Service support ,
[2019-09-28] MEDS: Aspirin 81 MG TAB.CHEW 324 MG PO (10:31)
[2019-09-28 10:32] LABS: Absolute Neutrophil Count 5.6 X10^3/uL (2.0-7.7); Basophil# 0.07 X10^3/uL; Basophil% 0.8 % (0-1); Eosinophil# 0.28 X10^3/uL; Eosinophils% 3.4 % (0-5); Hematocrit 43.9 % (37-47); Hemoglobin 14.2 g/dL (12.0-15.0); Lymphocyte % 18.1 % (19-41); Mean Corp Hgb Conc 32.3 g/dL (32-36); Mean Corpuscular Volume 89.8 fL (81-99); Mean Platelet Vol. 10.1 fl (6.2-12.0); Monocyte# 0.84 X10^3/uL; Monocyte% 10.1 % (0-10); NRBC Flagged by Analyzer 0 % (0-5); Neutrophil # 5.57 X10^3/uL (2.7-7.7); Neutrophil % 67.2 % (47-70); Platelet Count 250 K/mm3 (150-450); RBC Distribution Width CV 14.4 % (11.6-14.6); RBC Distribution Width SD 47.5 fl (35.1-43.9); Red Blood Count 4.89 M/mm3 (4.2-5.4); White Blood Count 8.3 K/mm3 (4.4-11.0)
--- NOTE | 2019-09-28 10:39 | ED.DCSUM_ITS ---
History of Present Illness Chief Complaint: Chest Pain Informant: Patient, Family Onset: Today Current Severity: Mild Narrative: The patient has a history of COPD and dementia, she is currently in a care facility, per the son she walked down for breakfast and that she sat the table she been having what is described as a chest discomfort she asked that her blood bra be loosened it was the symptoms persisted, paramedics were called she was brought in for evaluation Symptoms lasted for about 10 minutes maximum, she is currently asymptomatic, she indicates she does not feel that she was exerting herself anyway today, the walk to breakfast is normal, the son reports that yesterday she had a out a facility visit with family when she was quite active and did not complain of being ill in any way. The patient currently denies fever cough chest pain numbness weeks paresthesias she indicates she is back to normal, she indicates she did not wish to come to the hospital but the staff insisted Dates her COPD is stable, indicates she has prior history of leg edema and DVT she is on Eliquis is been noticed change in status of her legs she has no history of AR PE or any complications from the DVTs, her review of systems have been all negative including eating well drinking well normal bowel bladder habits Past Medical History - Allergies and Home Meds Allergies/Adverse Reactions: Allergies Sulfa (Sulfonamide Antibiotics) Allergy (Verified 08/10/19 13:42) [facility] Primary Care Physician: Joon Lujan Chi, MD [Primary Care Provider] - Past Medical History: - - COPD DVT Eliquis dementia Surgical History: cholecystectomy, tonsillectomy Smoking Status: Never smoker - Family History Maternal Family History: Family History (Last Reviewed 06/08/19 @ 00:57 by Asaf Puente MD) Mother Cancer Father Cancer Family History: Reports: Cancer - Thyroid Paternal Family History: Family History (Last Reviewed 06/08/19 @ 00:57 by Asaf Puente MD) Mother Cancer Father Cancer Family History: Reports: Cancer - colon Review of Systems General: Denies: Chills, Fever, Sweats Eyes: Denies: Visual changes - bilaterally, Diplopia ENT: Denies: Rhinorrhea, Sore throat Cardiovascular: Reports: Chest pain. Denies: Palpitations Respiratory: Denies: Dyspnea, Cough, Dyspnea on exertion Gastrointestinal: Denies: Abdominal pain, Nausea, Vomiting, Diarrhea, Melena, Hematochezia Genitourinary: Denies: Dysuria, Hematuria, Frequency Musculoskeletal: Denies: Back pain, Extremity Pain Skin: Denies: Rash, Wounds Neurological: Denies: Headache, Weakness, Numbness Physical Exam Vital Signs/Narrative: Vital Signs Temp Pulse Resp BP Pulse Ox 09/28/19 10:30 97 09/28/19 10:00 98.4 F 91 20 H 157/79 H 99 General: Well nourished, Well developed, No Acute Distress Head: Normocephalic, Atraumatic Eyes: Perrl, EOMI ENT: Moist mucous membranes, No rhinorrhea Neck: Supple, Nontender Cardiovascular: Regular rate, Regular rhythm, No murmurs Respiratory: No distress, CTA bilaterally, Chest nontender Abdomen: Soft, Nontender, Nondistended, Normal bowel sounds Back: Nontender, Normal Inspection Extremities: Nontender, No edema, - - He has Jamie wraps both lower extremities there is soft and nontender were breaking down the Jamie wraps, in addition she has thick nail mongolian on all of her hands and toes that she just had placed yesterday she does not wish to having that disrupted her best pulse ox is 93% with other method measures and again she denies any chest pain fever cough or change in her chronic shortness of breath Skin: Normal color, No rash Neurological: Alert, Oriented x3, Cranial nerves II-XII grossly intact, Normal Strength, Normal Sensation Psychological: Normal affect, Normal Mood Diagnostic/Tx/Re-eval - Medical Decision Making Patient's EKG shows a sinus rhythm rate 90 no acute injury pattern intervals normal No history of AR or PE she is on Eliquis for the DVT to lower extremities she has no symptoms now given all of the above screening labs are obtained CTA of the chest to evaluate for PE duplex scanning of legs She is screening labs and EKG show nothing acute, the patient CTA shows no acute PE or other acute gross abnormality there apparently was some type of a lesion in the lung that is improved and now appears to show scar Duplex scan shows really negative on the left on the right there appears to be partial acute clot involving the right common femoral to the PT V and peroneal veins please see that report greater saphenous vein is normal mother is flow apparently July 2019 there was no flow per the staff and technologist Reviewed all the test results with the patient her family we discussed inpatient versus outpatient management the differential the patient states she feels much better she does not wish to be admitted she prefers outpatient management with her physicians she does agree to return if her symptoms change or intensify or recurrent anyway the son was agreeable to this and would make sure they followed up with her physician Dr. Lujan this week Home stable time to admission Impression final Chest pain resolved etiology unclear ED Disposition - Plan for ED Patient: Diagnosis: Acute deep vein thrombosis (DVT) of right lower extremity, Chest pain Instructions: CHEST PAIN, Uncertain Cause Referrals: Joon Lujan Chi, MD [Primary Care Provider] -
[2019-09-28 10:52] LABS: Anion Gap 6 (5-15); BUN 19 mg/dL (7-18); BUN/Creat Ratio 23.8 RATIO (10-20); Calcium,Total 9.6 mg/dL (8.5-10.1); Chloride 104 mmol/L (98-107); EST Glomerular Filtration Rate 73 mL/min (>60); Est Glom Filt Rate - Afr Amer 88 mL/min (>60); Glucose 99 mg/dL (74-106); Sodium Level 139 mmol/L (136-145)
[2019-09-28 13:08] VITALS: BP 139/91; PULSE 97; RESP 17; O2SAT 96
--- NOTE | 2019-09-28 13:09 | ED.RN ---
IV DC'ED, CATHETER INTACT, SMALL GAUZE DRESSING PLACED. DISCHARGE INSTRUCTIONS GIVEN TO AND REVIEWED WITH PATIENT, PATIENT DENIES QUESTIONS OR CONCERNS AND VOICES UNDERSTANDING OF DISCHARGE INSTRUCTIONS. PT AMBULATES OUT OF ROOM WITHOUT DIFFICULTY.
== END 2019-09-28 13:10 | disposition home or self-care (01) ==
PROVIDERS: Emergency Provider Emergency Medicine; Family Provider Family Medicine Geriatric Medicine; PCP Family Medicine Geriatric Medicine
DX: R07.9 Chest pain, unspecified (principal); I82.411 Acute embolism and thrombosis of right femoral vein; I82.431 Acute embolism and thrombosis of right popliteal vein; I82.441 Acute embolism and thrombosis of right tibial vein; I82.451 Acute embolism and thrombosis of right peroneal vein; J44.9 Chronic obstructive pulmonary disease, unspecified; F03.90 Unspecified dementia, unspecified severity, without behavioral disturbance, psychotic disturbance, mood disturbance, and anxiety; Z86.718 Personal history of other venous thrombosis and embolism; Z79.01 Long term (current) use of anticoagulants; Z79.899 Other long term (current) drug therapy
CPT/HCPCS: 71045; 71275; 80048; 84484; 85025; 93005; 93970; 99285; Q9967; A4216

== ENCOUNTER → 2019-10-06 15:19 | Outpatient (CLI) | payer MEDICARE, OTHER, SELFPAY ==
[2019-09-28 10:00] VITALS: BMI 25.1
== END ==
PROVIDERS: Family Provider Family Medicine Geriatric Medicine; PCP Family Medicine Geriatric Medicine; Visit Provider Family Medicine Geriatric Medicine
DX: N39.0 Urinary tract infection, site not specified (principal)
CPT/HCPCS: 87086; 87088; 87186

== ENCOUNTER → 2019-11-05 12:11 | Outpatient (CLI) | payer MEDICARE, OTHER, SELFPAY ==
[2019-11-05 12:35] LABS: Absolute Lymphocyte Count 1.44 X10^3/uL (0.83-4.51); Absolute Neutrophil Count 5.4 X10^3/uL (2.0-7.7); Basophil# 0.05 X10^3/uL; Basophil% 0.6 % (0-1); Eosinophils% 3.8 % (0-5); Hematocrit 42.9 % (37-47); Hemoglobin 13.6 g/dL (12.0-15.0); Lymphocyte # 1.44 X10^3/ul (4.0); Lymphocyte % 18.2 % (19-41); Mean Corp Hgb Conc 31.7 g/dL (32-36); Mean Corpuscular Hgb 28.9 pg (27.0-32.0); Mean Corpuscular Volume 91.1 fL (81-99); Mean Platelet Vol. 10.5 fl (6.2-12.0); Monocyte# 0.72 X10^3/uL; Monocyte% 9.1 % (0-10); NRBC Flagged by Analyzer 0 % (0-5); Neutrophil # 5.37 X10^3/uL (2.7-7.7); Neutrophil % 67.9 % (47-70); Platelet Count 275 K/mm3 (150-450); RBC Distribution Width SD 47.2 fl (35.1-43.9); Red Blood Count 4.71 M/mm3 (4.2-5.4); White Blood Count 7.9 K/mm3 (4.4-11.0)
[2019-11-05 13:06] LABS: Vitamin D,25 Hydroxy 39.2 ng/mL (29.95-100.01)
[2019-11-05 13:07] LABS: ALB/GLOB Ratio 0.9 RATIO (0.9-2.4); AST(SGOT) 16 U/L (15-37); Alanine Aminotransfer ALT/SGPT 16 U/L (13-56); Albumin, Serum 3.6 g/dL (3.2-5.0); Alkaline Phosphatase 115 U/L (45-117); Anion Gap 8 (5-15); BUN 20 mg/dL (7-18); BUN/Creat Ratio 24.7 RATIO (10-20); Calcium,Total 9.5 mg/dL (8.5-10.1); Chloride 105 mmol/L (98-107); Creatinine, Serum 0.81 mg/dL (0.55-1.02); EST Glomerular Filtration Rate 72 mL/min (>60); Est Glom Filt Rate - Afr Amer 87 mL/min (>60); Globulin 3.8 g/dL (2.2-4.2); Glucose 95 mg/dL (74-106); Potassium 3.8 mmol/L (3.5-5.1); Protein, Total 7.4 g/dL (6.4-8.2); Sodium Level 141 mmol/L (136-145); Thyroid Stim Hormone (TSH) 0.81 uIU/mL (0.358-3.74)
== END ==
PROVIDERS: Family Provider Family Medicine Geriatric Medicine; PCP Family Medicine Geriatric Medicine; Visit Provider Family Medicine Geriatric Medicine
DX: E55.9 Vitamin D deficiency, unspecified (principal); I10 Essential (primary) hypertension
CPT/HCPCS: 36415; 80053; 82306; 84443; 85025

== ENCOUNTER → 2019-11-09 13:54 | Outpatient (CLI) | payer MEDICARE, OTHER, SELFPAY ==
--- NOTE | 2019-11-09 13:59 | VDLE_ITS ---
Reason For Study: Edema RIGHT LEFT GSV is normal. GSV is normal. Rt SFV, SFJ, FV prox-mid, PopV and T/P Trunk CFV is compressible, spontaneous, phasic, are all partially compresible with flow competent, and demonstrates normal noted. Bright echoes noted with the lumen of augmentation. the vessel consistent with chronic DVT. FV is compressible, spontaneous, phasic, competent and demonstrates normal Right FV distal is partially compressible augmentation. with minimal flow noted. POP V is compressible, spontaneous, phasic, PTV is compressible. competent and demonstrates normal RT PerV is compressible. augmentation. Procedure T/P Trunk is compressible. Exam performed in department. PTV is compressible. A preliminary report was called and/or faxed LT PerV is compressible. to Tai. Interpretation Summary Chronic venous changes are noted in the right common femoral vein, femoral vein, popliteal vein, and tibio-peroneal trunk, which are partially compressible and demonstrate bright intraluminal echogenicity. The right posterior tibial vein and peroneal vein are patent and compressible. Deep veins of the left lower extremity are patent and compressible segmentally. There is no evidence of left lower extremity deep vein thrombosis. Valvular competence appears intact within the proximal deep venous system on the left . The great saphenous veins appear bilaterally patent and compressible segmentally. Ordering Physician: Joon Lujan Referring Physician: Joon Lujan Chi Performed By: Michela Ellison RVT
== END ==
PROVIDERS: Family Provider Family Medicine Geriatric Medicine; PCP Family Medicine Geriatric Medicine; Referring Provider Family Medicine Geriatric Medicine; Visit Provider Family Medicine Geriatric Medicine
DX: R60.0 Localized edema (principal)
CPT/HCPCS: 93970

== ENCOUNTER → 2019-11-16 11:29 | Outpatient (CLI) | payer MEDICARE, OTHER, SELFPAY ==
--- NOTE | 2019-11-16 11:40 | RAD_ITS ---
STUDY: X-RAY CHEST REASON FOR EXAM: Female, 84 years old. History of bronchitis. TECHNIQUE: PA and lateral views of the chest. COMPARISON: Comparison is made with prior study September 28, 2019. FINDINGS: At this time, there is evidence of infiltration in the right upper lobe. Increased markings are also seen in the right middle lobe and lingular segments of the left upper lobe. Follow-up is recommended. There is no demonstrated pleural abnormality. Normal size heart. Normal mediastinum and patricia. Normal visualized pulmonary arteries. There is atherosclerotic calcification of the aortic arch with tortuosity. There are degenerative changes of the visualized thoracic spine. Prior rotator cuff surgery of the right shoulder. There is no demonstrated abnormality of the visualized soft tissue structures of the upper abdomen. RAD/Chest PA and Lateral IMPRESSION: New right upper lobe as well as right middle lobe and lingular infiltrates. Electronically Signed: Quirino Martinez, at 12:31 EST , Service support ,
== END ==
PROVIDERS: Family Provider Family Medicine Geriatric Medicine; PCP Family Medicine Geriatric Medicine; Referring Provider Family Medicine Geriatric Medicine; Visit Provider Family Medicine Geriatric Medicine
DX: J40 Bronchitis, not specified as acute or chronic (principal); R50.9 Fever, unspecified
CPT/HCPCS: 71046; 87633

== ENCOUNTER → 2019-11-20 11:28 | Outpatient (CLI) | payer MEDICARE, OTHER, SELFPAY ==
--- NOTE | 2019-11-20 11:36 | RAD_ITS ---
STUDY: X-RAY CHEST REASON FOR EXAM: Female, 84 years old. PNEUMONIA TECHNIQUE: 2 views COMPARISON: Prior chest radiograph of November 16, 2019 and September 28, 2019. FINDINGS: The infiltrate at the base of the right upper lobe is improving substantially with mild residual infiltrate. A minimal infiltrate in the mid left lung remains. Peribronchial changes in the bilateral lower lobes have not completely resolved. Stable cardiac size. Normal mediastinum and patricia. Normal visualized pulmonary arteries. There is atherosclerotic calcification of the aortic arch with tortuosity. There is demineralization of the osseous structures. Status post right rotator cuff repair. There is no demonstrated abnormality of the visualized soft tissue structures of the upper abdomen. RAD/Chest PA and Lateral IMPRESSION: Substantial improvement in the infiltrate at the bases of the right upper lobe consistent with resolving pneumonic process. Minimal remaining infiltrate of the lingula. Peribronchial changes in the lower lobes have not completely resolved compared to a baseline radiograph of September 28, 2019 Electronically Signed: Alberta Newby MD at 21:44 EST , Service support ,
== END ==
PROVIDERS: Family Provider Family Medicine Geriatric Medicine; PCP Family Medicine Geriatric Medicine; Referring Provider Family Medicine Geriatric Medicine; Visit Provider Family Medicine Geriatric Medicine
DX: J18.9 Pneumonia, unspecified organism (principal)
CPT/HCPCS: 71046

== ENCOUNTER 2020-01-05 05:52 | Emergency (ER) | payer MEDICARE, OTHER, SELFPAY ==
[2020-01-05 05:54] VITALS: BP 146/64; PULSE 83; RESP 16; TEMP 36.4; O2SAT 97; BMI 26.3
--- NOTE | 2020-01-05 06:15 | RAD_ITS ---
STUDY: X-RAY CHEST REASON FOR EXAM: Female, 84 years old. patient is here for nausea and vomiting -- order says exam is for cough -- hx of copd and asthma -- patient does not know why she is here in the ER TECHNIQUE: Frontal and lateral views of the chest. COMPARISON: None. FINDINGS: The lungs are clear and expanded. There is no demonstrated pleural abnormality. Normal size heart. Normal mediastinum and patricia. Normal visualized pulmonary arteries. There is atherosclerotic calcification of the aortic arch with tortuosity. There are diffuse degenerative changes of the visualized thoracic spine. There is degenerative osteoarthritis of the bilateral shoulders. There is no demonstrated abnormality of the visualized soft tissue structures of the upper abdomen. RAD/Chest PA and Lateral IMPRESSION: Degenerative changes, as described above. No demonstrated acute cardiopulmonary process. Electronically Signed: Bruce Burns, at 7:35 EST Tel , Service support ,
--- NOTE | 2020-01-05 06:15 | ED.DCSUM_ITS ---
History of Present Illness Chief Complaint: Nausea/Vomiting Narrative: Patient is an 84-year-old female who presents after a small episode of emesis. Son states he was told by the skilled nursing that she had gagged up a little bit of water. He also notes that the patient has been more disoriented for the past couple of days. She is from a skilled nursing. She does have a history of dementia but he notes that her confusion seems to be worse than baseline. He gave the example she was asking if she had ever been to this hospital before. Patient does admit that she feels slightly disoriented. Otherwise the patient has no complaints. She denies any pain. She does not remember vomiting. No chest pain shortness of breath cough diarrhea. Son denies any recent illness that he is aware of. Past Medical History - Allergies and Home Meds Allergies/Adverse Reactions: Allergies Sulfa (Sulfonamide Antibiotics) Allergy (Verified 08/10/19 13:42) Hives Primary Care Physician: Joon Lujan Chi, MD [Primary Care Provider] - Past Medical History: - - Hypertension, dementia, history of DVT on anticoagulation Surgical History: cholecystectomy, tonsillectomy Smoking Status: Never smoker - Family History Maternal Family History: Family History (Last Reviewed 06/08/19 @ 00:57 by Asaf Puente MD) Mother Cancer Father Cancer Family History: Reports: Cancer - Thyroid Paternal Family History: Family History (Last Reviewed 06/08/19 @ 00:57 by Asaf Puente MD) Mother Cancer Father Cancer Family History: Reports: Cancer - colon Review of Systems ROS: Unable to Obtain - Due to dementia Physical Exam Vital Signs/Narrative: Vital Signs Temp Pulse Resp BP Pulse Ox 01/05/20 05:54 97.5 F L 83 16 146/64 H 97 Inital Vital Signs reviewed: Yes General: Well nourished Head: Normocephalic Eyes: EOMI ENT: Moist mucous membranes Neck: Supple Cardiovascular: Regular rate, Regular rhythm Respiratory: No distress, CTA bilaterally Abdomen: Soft, Nontender, Nondistended Extremities: Nontender Skin: Normal color Neurological: Alert, Oriented x3, Normal Strength, Normal Sensation Psychological: Normal affect Diagnostic/Tx/Re-eval Impressions Chest X-Ray 01/05/20 06:15 IMPRESSION: Degenerative changes, as described above. No demonstrated acute cardiopulmonary process. Electronically Signed: Bruce Burns, at 7:35 EST Tel , Service support , 01/05/20 06:15 CXR [Chest PA and Lateral] [RAD] Stat Laboratory Results 01/05/20 01/05/20 01/05/20 06:10 06:10 06:30 WBC 7.9 RBC 4.76 Hgb 14.2 Hct 43.5 MCV 91.4 MCH 29.8 MCHC 32.6 RDW Std Deviation 48.2 H RDW Coeff of Marvin 14.4 Plt Count 242 MPV 8.9 Immature Gran % (Auto) 0.500 Neut % (Auto) 76.4 H Lymph % (Auto) 14.1 L [place] % (Auto) 7.7 Eos % (Auto) 0.8 Baso % (Auto) 0.5 Absolute Neuts (auto) 6.0 Absolute Lymphs (auto) 1.11 Nucleated RBC % 0 Sodium 142 Potassium 3.5 Chloride 109 H Carbon Dioxide 26.0 Anion Gap 7 BUN 19 H Creatinine 0.86 Estim Creat Clear Calc 37.83 Est GFR (MDRD) Af Amer 81 Est GFR (MDRD) Non-Af 67 BUN/Creatinine Ratio 22.1 H Glucose 122 H Calcium 9.4 Total Bilirubin 0.30 AST 15 ALT 20 Alkaline Phosphatase 88 Total Protein 7.4 Albumin 3.7 Globulin 3.7 Albumin/Globulin Ratio 1.0 Lipase 103 Urine Color Yellow Urine Clarity Clear Urine pH 5.0 Ur Specific [place] 1.020 Urine Protein Negative Urine Glucose (UA) Normal Urine Ketones Negative Urine Occult Blood 50 H Urine Nitrite Negative Urine Bilirubin Negative Urine Urobilinogen Normal Ur Leukocyte Esterase Negative Urine RBC 10-25 SEEN Urine WBC 5-10 SEEN Ur Squamous Epith Cells 5-10 SEEN Urine Bacteria RARE Urine Mucus 0 SEEN - Medical Decision Making Patient has been resting comfortably while here. She has had no vomiting while here. Laboratory studies unremarkable, there are 5-10 WBCs in the urine but also 5-10 epithelials and negative leukocyte esterase and negative nitrites. I do not believe this represents infection. Chest x-ray shows no acute process. Patient will be discharged back to her nursing facility. ED Disposition - Plan for ED Patient: Disposition: Home or Assisted Living Diagnosis: Vomiting Instructions: VOMITING (5y-Adult) Referrals: Joon Lujan Chi, MD [Primary Care Provider] -
[2020-01-05 06:23] LABS: Absolute Lymphocyte Count 1.11 X10^3/uL (0.83-4.51); Basophil# 0.04 X10^3/uL; Basophil% 0.5 % (0-1); Eosinophil# 0.06 X10^3/uL; Eosinophils% 0.8 % (0-5); Hematocrit 43.5 % (37-47); Hemoglobin 14.2 g/dL (12.0-15.0); Lymphocyte # 1.11 X10^3/ul (4.0); Lymphocyte % 14.1 % (19-41); Mean Corp Hgb Conc 32.6 g/dL (32-36); Mean Corpuscular Hgb 29.8 pg (27.0-32.0); Mean Corpuscular Volume 91.4 fL (81-99); Mean Platelet Vol. 8.9 fl (6.2-12.0); Monocyte# 0.61 X10^3/uL; Monocyte% 7.7 % (0-10); NRBC Flagged by Analyzer 0 % (0-5); Neutrophil # 6.04 X10^3/uL (2.7-7.7); Neutrophil % 76.4 % (47-70); Platelet Count 242 K/mm3 (150-450); RBC Distribution Width CV 14.4 % (11.6-14.6); RBC Distribution Width SD 48.2 fl (35.1-43.9); Red Blood Count 4.76 M/mm3 (4.2-5.4); White Blood Count 7.9 K/mm3 (4.4-11.0)
[2020-01-05] MEDS: Ondansetron 4 MG/2 ML Vial IV (06:33)
[2020-01-05] MEDS: 0.9% Normal Saline 1,000 ML 1000 ML IV (06:33)
[2020-01-05 06:38] LABS: AST(SGOT) 15 U/L (15-37); Alanine Aminotransfer ALT/SGPT 20 U/L (13-56); Albumin, Serum 3.7 g/dL (3.2-5.0); Alkaline Phosphatase 88 U/L (45-117); Anion Gap 7 (5-15); BUN 19 mg/dL (7-18); BUN/Creat Ratio 22.1 RATIO (10-20); Calcium,Total 9.4 mg/dL (8.5-10.1); Chloride 109 mmol/L (98-107); Creatinine, Serum 0.86 mg/dL (0.55-1.02); EST Glomerular Filtration Rate 67 mL/min (>60); Est Glom Filt Rate - Afr Amer 81 mL/min (>60); Estimated Creatinine Clearance 37.83 ml/min; Globulin 3.7 g/dL (2.2-4.2); Glucose 122 mg/dL (74-106); Lipase 103 U/L (73-393); Potassium 3.5 mmol/L (3.5-5.1); Protein, Total 7.4 g/dL (6.4-8.2); Sodium Level 142 mmol/L (136-145)
[2020-01-05 06:40] LABS: Mucous, Urine 0 SEEN /hpf (<or=2+)
[2020-01-05 06:47] LABS: Glucose, Dipstick Normal (Normal); Ketone-Dipstick Negative (Negative); Leukocyte Esterase-Dipstick Negative /ul (Negative); Nitrite-Dipstick Negative (Negative); Occult Blood-Urine 50 /ul (Negative); Protein-Dipstick Negative (Negative); Urine Bilirubin Dipstick Negative (Negative); Urine Urobilinogen Normal (Normal)
[2020-01-05 06:48] LABS: Color, Urine Yellow (Yellow); Urine Clarity Clear (Clear)
[2020-01-05 06:57] LABS: Bacteria RARE /hpf (None Seen); Red Blood Cells-Urine 10-25 SEEN /hpf (0-5); Squamous Epithelial Cells - UA 5-10 SEEN /hpf (5-10); White Blood Cells 5-10 SEEN /hpf (0-5)
--- NOTE | 2020-01-05 06:57 | ED.RN ---
PT knows day, month but not year. Place and person okay.
--- NOTE | 2020-01-05 07:55 | NURSING ---
Report called to [facility], notified that pt's son will be bringing pt back to facility
== END 2020-01-05 08:07 | disposition home or self-care (01) ==
PROVIDERS: Emergency Provider Emergency Medicine; PCP Family Medicine Geriatric Medicine
DX: R11.2 Nausea with vomiting, unspecified (principal); I10 Essential (primary) hypertension; F03.90 Unspecified dementia, unspecified severity, without behavioral disturbance, psychotic disturbance, mood disturbance, and anxiety; H40.9 Unspecified glaucoma; Z79.82 Long term (current) use of aspirin; Z79.01 Long term (current) use of anticoagulants; Z86.718 Personal history of other venous thrombosis and embolism; Z79.899 Other long term (current) drug therapy
CPT/HCPCS: 71046; 80053; 81001; 83690; 85025; 96361; 96374; 99285; J7030; A4216; J2405

== ENCOUNTER → 2020-07-18 16:07 | Outpatient (CLI) | payer MEDICARE, OTHER, SELFPAY ==
--- NOTE | 2020-07-18 16:10 | RAD_ITS ---
STUDY: X-RAY - PELVIS AND RIGHT HIP REASON FOR EXAM: Female, 84 years old. Hip pain x1 month. No known injury. TECHNIQUE: 3 views of the pelvis and hip. COMPARISON: 01/28/2019 FINDINGS: There is a non-specific bowel gas pattern. Normal visualized soft tissue structures. There is diffuse demineralization of the osseous structures. There is narrowing with cortical sclerosis and osteophyte formation of the sacroiliac joint consistent with degenerative osteoarthritic changes. Normal bilateral superior and inferior pubic rami. Normal pubic symphysis. Normal bilateral ischial tuberosities. Normal visualized femoral head. Normal acetabulum. There is moderate articular joint space narrowing of the hip. RAD/HIP, UNI W/ Pelvis 2-3 Views IMPRESSION: Degenerative arthrosis, no demonstrated fracture or suspicious osseous lesion Electronically Signed: Jonathan Kuhn MD at 10:21 EDT , Service support ,
== END ==
PROVIDERS: PCP Family Medicine Geriatric Medicine; Referring Provider Family Medicine Geriatric Medicine; Visit Provider Family Medicine Geriatric Medicine
DX: M25.559 Pain in unspecified hip (principal)
CPT/HCPCS: 73502

== ENCOUNTER → 2020-11-21 14:27 | Outpatient (CLI) | payer MEDICARE, OTHER, SELFPAY ==
--- NOTE | 2020-11-21 15:38 | VDLE_ITS ---
Reason For Study: EDEMA Procedure LEFT This is a venous duplex using B-mode, color GSV is normal. flow and spectral Doppler. CFV is compressible, spontaneous, phasic, Exam performed in department. competent, and demonstrates normal A preliminary report was called and/or faxed augmentation. to Dr. Lujan @ 4 pm @ [phone]. FV is compressible, spontaneous, phasic, competent and demonstrates normal augmentation. POP V is compressible, spontaneous, phasic, competent and demonstrates normal augmentation. T/P Trunk is compressible. PTV is compressible. LT PerV is compressible. Interpretation Summary Deep veins of the left lower extremity are patent and compressible segmentally. There is no evidence of left lower extremity deep vein thrombosis. Valvular competence appears intact within the proximal deep venous system on the left . The left great saphenous vein appears patent and compressible segmentally. Ordering Physician: Joon Lujan Referring Physician: Joon Lujan Chi Performed By: Oneida Reynolds, RDCS, RVT
[2020-11-21 17:18] LABS: Absolute Lymphocyte Count 1.66 X10^3/uL (0.83-4.51); Absolute Neutrophil Count 5.8 X10^3/uL (2.0-7.7); Basophil# 0.05 X10^3/uL; Basophil% 0.6 % (0-1); Eosinophil# 0.15 X10^3/uL; Eosinophils% 1.8 % (0-5); Hemoglobin 14.2 g/dL (12.0-15.0); Lymphocyte # 1.66 X10^3/ul (4.0); Lymphocyte % 19.6 % (19-41); Mean Corp Hgb Conc 31.6 g/dL (32-36); Mean Corpuscular Hgb 30.3 pg (27.0-32.0); Mean Corpuscular Volume 96.2 fL (81-99); Mean Platelet Vol. 11.4 fl (6.2-12.0); Monocyte% 9.5 % (0-10); NRBC Flagged by Analyzer 0 % (0-5); Neutrophil # 5.78 X10^3/uL (2.7-7.7); Neutrophil % 68.3 % (47-70); Platelet Count 245 K/mm3 (150-450); RBC Distribution Width CV 13.2 % (11.6-14.6); RBC Distribution Width SD 46.7 fl (35.1-43.9); Red Blood Count 4.68 M/mm3 (4.2-5.4); White Blood Count 8.5 K/mm3 (4.4-11.0)
[2020-11-21 17:58] LABS: ALB/GLOB Ratio 0.9 RATIO (0.9-2.4); AST(SGOT) 27 U/L (15-37); Alanine Aminotransfer ALT/SGPT 24 U/L (13-56); Albumin, Serum 3.5 g/dL (3.2-5.0); Alkaline Phosphatase 102 U/L (45-117); Anion Gap 9 (5-15); BUN 19 mg/dL (7-18); BUN/Creat Ratio 15.8 RATIO (10-20); Calcium,Total 9.2 mg/dL (8.5-10.1); Chloride 106 mmol/L (98-107); EST Glomerular Filtration Rate 45 mL/min (>60); Est Glom Filt Rate - Afr Amer 55 mL/min (>60); Globulin 3.9 g/dL (2.2-4.2); Glucose 109 mg/dL (74-106); Potassium 4.1 mmol/L (3.5-5.1); Protein, Total 7.4 g/dL (6.4-8.2); Sodium Level 137 mmol/L (136-145); Thyroid Stim Hormone (TSH) 0.88 uIU/mL (0.358-3.74)
== END ==
PROVIDERS: PCP Family Medicine Geriatric Medicine; Referring Provider Family Medicine Geriatric Medicine; Visit Provider Family Medicine Geriatric Medicine
DX: E55.9 Vitamin D deficiency, unspecified (principal); I10 Essential (primary) hypertension; R60.0 Localized edema
CPT/HCPCS: 36415; 80053; 82306; 84443; 85025; 93971

== ENCOUNTER → 2020-11-28 12:28 | Outpatient (CLI) | payer MEDICARE, OTHER, SELFPAY | PROVIDERS: PCP Family Medicine Geriatric Medicine; Visit Provider Family Medicine Geriatric Medicine | DX: N39.0 Urinary tract infection, site not specified (principal) | CPT/HCPCS: 87077; 87086; 87088; 87186 ==

== ENCOUNTER 2021-10-30 13:53 | Emergency (ER) | payer MEDICARE, OTHER, SELFPAY ==
[2021-10-30 13:54] VITALS: BP 153/139; PULSE 98; RESP 18; TEMP 36.5; O2SAT 96; BMI 23.3
[2021-10-30 14:03] VITALS: BP 153/139; PULSE 98; RESP 18; TEMP 36.5; O2SAT 94
--- NOTE | 2021-10-30 14:41 | RAD_ITS ---
STUDY: X-RAY CHEST REASON FOR EXAM: Female, 86 years old. Altered mental status TECHNIQUE: Single AP portable view of the chest. COMPARISON: Comparison is made with prior study dated 01/05/2020. FINDINGS: There is hyperinflation of the lungs consistent with chronic obstructive lung disease (COPD). Stable increased markings at the left lung base suggestive of scarring. Stable mild increased markings at both lung apices suggestive of scarring. There is no demonstrated pleural abnormality. Normal size heart. Normal mediastinum and patricia. Normal visualized pulmonary arteries. There is atherosclerotic calcification of the aortic arch with tortuosity. Normal visualized thoracic spine. Prior right rotator cuff repair. Calcific densities are seen in the left upper quadrant most likely within the spleen. RAD/Chest 1 View (Portable) IMPRESSION: Hyperinflation. Stable scarring in both lungs. Electronically Signed: Quirino Martinez MD at 15:11 EST , Service support ,
[2021-10-30 15:01] LABS: Basophil# 0.05 X10^3/uL; Basophil% 0.4 % (0-1); Eosinophil# 0.16 X10^3/uL; Eosinophils% 1.3 % (0-5); Hematocrit 43.9 % (37-47); Hemoglobin 14.3 g/dL (12.0-15.0); Lymphocyte % 9.4 % (19-41); Mean Corp Hgb Conc 32.6 g/dL (32-36); Mean Corpuscular Hgb 29.9 pg (27.0-32.0); Mean Corpuscular Volume 91.6 fL (81-99); Mean Platelet Vol. 8.8 fl (6.2-12.0); Monocyte# 1.29 X10^3/uL; Monocyte% 10.1 % (0-10); NRBC Flagged by Analyzer 0 % (0-5); Neutrophil # 10.01 X10^3/uL (2.7-7.7); Neutrophil % 78.5 % (47-70); Platelet Count 317 K/mm3 (150-450); RBC Distribution Width CV 13.2 % (11.6-14.6); RBC Distribution Width SD 45.1 fl (35.1-43.9); Red Blood Count 4.79 M/mm3 (4.2-5.4); White Blood Count 12.8 K/mm3 (4.4-11.0)
[2021-10-30 15:07] VITALS: BP 100/74; PULSE 110; RESP 18; TEMP 36.3; O2SAT 99
--- NOTE | 2021-10-30 15:10 | EDS_ITS ---
HPI HPI - Female History of Present Illness Chief Complaint: Complaint Narrative Narrative: 86-year-old female presenting with increased weakness and confusion. Her son states that she is hallucinating and seeing people that are not in the room. He states that she has been on antibiotics at her assisted living facility. Over the course of the last 5 days she has been getting weaker and weaker. She can no longer walk. She was moved to the skilled side of the facility. They attempted to get a urinalysis today however they were unable to successfully catheterize her and she missed the bedpan. She sent to the ER to have her urinalysis done. Patient was recently on antibiotics for UTI. Her son states it was Stacy. He also reports that she had a fall several days ago which was unwitnessed by him but was described as her walker was on top of her on the floor. The patient herself is a poor informant and cannot tell me if she hit her head. She is anticoagulated on Xarelto. [facility] Medical History Aneurysm artery, renal Anorexia Asthma COPD (chronic obstructive pulmonary disease) Dementia Diverticulosis DVT (deep venous thrombosis) Dysphagia Encephalopathy Failure to thrive Fall Fatigue Osteoarthritis Retention of urine UTI (urinary tract infection) Weakness Home Medications Melatonin 30 mg PO QHS 09/28/19 [History Last Taken Unknown] acetaminophen 2 tab PO Q6H PRN 09/28/19 [History Last Taken Unknown] amlodipine 5 mg PO DAILY 09/28/19 [History Last Taken Unknown] bisacodyl 10 mg FL DAILY PRN 09/28/19 [History Last Taken Unknown] cholecalciferol (vitamin D3) 1,000 unit PO DAILY 09/28/19 [History Last Taken Unknown] dorzolamide 1 drp EACH EYE BID 09/28/19 [History Last Taken Unknown] latanoprost 1 drp EACH EYE QHS 09/28/19 [History Last Taken Unknown] losartan 100 mg PO DAILY 09/28/19 [History Last Taken Unknown] magnesium hydroxide 30 ml PO DAILY PRN PRN 09/28/19 [History Last Taken Unknown] mineral oil 1 bottle FL DAILY PRN 09/28/19 [History Last Taken Unknown] rivaroxaban 20 mg PO DAILY 09/28/19 [History Last Taken Unknown] memantine 10 mg PO BID 01/05/20 [History Last Taken Unknown] Allergy/AdvReac Type Severity Reaction Status Date / Time Sulfa (Sulfonamide Allergy Hives Verified 08/10/19 13:42 Antibiotics) Family History Mother Cancer Father Cancer Surgical History History of cholecystectomy Social History Smoking Status: Never smoker ROS ROS ED Review of Systems ROS Unobtainable: due to encephalopathy EXAM Physical Exam Const Vital Signs: 10/30/21 13:54 10/30/21 14:03 10/30/21 15:07 Temperature 97.7 F L 97.7 F L 97.4 F L Temperature Source Oral Oral Temporal Pulse Rate 98 98 110 H Respiratory Rate 18 18 18 Blood Pressure 153/139 H 153/139 H 100/74 Blood Pressure Mean 143 143 82 Pulse Ox 96 94 99 Oxygen Delivery Method Room Air Room Air Room Air 10/30/21 16:29 Temperature 98.6 F Temperature Source Temporal Pulse Rate 98 Respiratory Rate 16 Blood Pressure 104/92 H Blood Pressure Mean 96 Pulse Ox 94 Oxygen Delivery Method Room Air Positive well nourished General Appearance ED: NAD; Negative for pallor HEENT Reports dry mucous membranes Negative for trauma Mouth ED: Yes dry mucous membranes Mouth: dry mucous membranes Eyes PERRL and EOMs intact bilaterally Resp normal respiratory effort and clear to auscultation bilaterally Cardio regular rhythm Rate: tachycardic Neuro CN's II-XII intact bilaterally Sensorium / Orientation: alert Skin no rashes or lesions noted and no wounds General Skin Exam: Negative for jaundice or pallor MDM MDM MDM Narrative Medical decision making narrative: Patient presenting with confusion and hallucinations. Her son is concerned this may be a UTI. Her urinalysis was negative for infection. CBC does show a slight leukocytosis of 12.8. Hemoglobin hematocrit are stable. Renal function and electrolytes are normal. LFTs are normal with exception of an elevated alkaline phosphatase of 129. CT of the brain was performed given the patient's recent fall and this is negative for acute intracranial findings. Patient's chest x-ray is interpreted by myself shows no acute cardiopulmonary process. The radiologist does agree. Given patient is ultimately negative work-up I do not believe she needs to be hospitalized. This may be worsening of her dementia she is. She has already been switched to full nursing and nursing ability and I believe she is appropriate for this. I did speak with her son regarding this and he is comfortable. Impression: 1. Confusion 2. History of dementia Lab Data Labs: Laboratory Results - last 24 hr 10/30/21 10/30/21 10/30/21 14:50 14:50 15:26 WBC 12.8 H RBC 4.79 Hgb 14.3 Hct 43.9 MCV 91.6 MCH 29.9 MCHC 32.6 RDW Std Deviation 45.1 H RDW Coeff of [place] 13.2 Plt Count 317 MPV 8.8 Immature Gran % (Auto) 0.300 Neut % (Auto) 78.5 H Lymph % (Auto) 9.4 L [place] % (Auto) 10.1 H Eos % (Auto) 1.3 Baso % (Auto) 0.4 Absolute Neuts (auto) 10.0 H Absolute Lymphs (auto) 1.20 Nucleated RBC % 0 Sodium 137 Potassium 3.9 Chloride 104 Carbon Dioxide 26.0 Anion Gap 7 BUN 17 Creatinine 0.69 Estim Creat Clear Calc 38.54 Est GFR (MDRD) Af Amer 104 Est GFR (MDRD) Non-Af 86 BUN/Creatinine Ratio 24.6 H Glucose 111 H Calcium 9.5 Total Bilirubin 0.80 AST 23 ALT 19 Alkaline Phosphatase 129 H Total Protein 7.7 Albumin 3.1 L Globulin 4.6 H Albumin/Globulin Ratio 0.7 L Urine Color Yellow Urine Clarity Clear Urine pH 7.[address] 1.010 Urine Protein Negative Urine Glucose (UA) Normal Urine Ketones 50 H Urine Occult Blood Negative Urine Nitrite Negative Urine Bilirubin Negative Urine Urobilinogen Normal Ur Leukocyte Esterase 25 H Urine RBC 0 SEEN Urine WBC 10-25 SEEN Ur Squamous Epith Cells 0-5 SEEN Amorphous Sediment 1+ Urine Bacteria 0 SEEN Urine Mucus 0 SEEN Radiography Diagnostic Testing: Clinical Impression(s) from Imaging Studies Chest X-Ray 10/30/21 14:41 IMPRESSION: Hyperinflation. Stable scarring in both lungs. Electronically Signed: Quirino Martinez MD at 15:11 EST , Service support , Brain CT 10/30/21 15:39 IMPRESSION: Chronic involutional changes of the brain. Electronically Signed: Quirino Martinez MD at 15:53 EST , Service support , Discharge Plan Triage Chief Complaint: Complaint ED Provider: Javi Ragland Dx/Rx/DC Orders Instructions: ED ALOC Prescriptions: No Action latanoprost 1 DROP bottle 1 drp EACH EYE QHS RF: 0 acetaminophen 325 MG tablet 2 tab PO Q6H PRN (Reason: PAIN/FEVER) RF: 0 amlodipine 5 MG tablet 5 mg PO DAILY RF: 0 mineral oil 1 BOTTLE enema 1 bottle FL DAILY PRN (Reason: Constipation) RF: 0 magnesium hydroxide 30 ML suspension 30 ml PO DAILY PRN PRN (Reason: Constipation) RF: 0 bisacodyl 10 MG suppository 10 mg FL DAILY PRN (Reason: Constipation) RF: 0 losartan 100 MG tablet 100 mg PO DAILY RF: 0 dorzolamide 1 DROP bottle 1 drp EACH EYE BID RF: 0 cholecalciferol (vitamin D3) 1,000 UNIT capsule 1,000 unit PO DAILY RF: 0 rivaroxaban 20 MG tablet 20 mg PO DAILY RF: 0 Melatonin 3 MG tablet 30 mg PO QHS RF: 0 memantine 10 MG tablet 10 mg PO BID RF: 0 Primary Care Provider: Joon Lujan Chi Referrals: Santo Guerrero MD [STAFF PHYSICIAN] - As Needed Disposition Disposition: Home, Self Care
[2021-10-30 15:21] LABS: ALB/GLOB Ratio 0.7 RATIO (0.9-2.4); AST(SGOT) 23 U/L (15-37); Alanine Aminotransfer ALT/SGPT 19 U/L (13-56); Albumin, Serum 3.1 g/dL (3.2-5.0); Alkaline Phosphatase 129 U/L (45-117); Anion Gap 7 (5-15); BUN 17 mg/dL (7-18); BUN/Creat Ratio 24.6 RATIO (10-20); Calcium,Total 9.5 mg/dL (8.5-10.1); Chloride 104 mmol/L (98-107); Creatinine, Serum 0.69 mg/dL (0.55-1.02); EST Glomerular Filtration Rate 86 mL/min (>60); Est Glom Filt Rate - Afr Amer 104 mL/min (>60); Estimated Creatinine Clearance 38.54 ml/min; Globulin 4.6 g/dL (2.2-4.2); Glucose 111 mg/dL (74-106); Potassium 3.9 mmol/L (3.5-5.1); Protein, Total 7.7 g/dL (6.4-8.2); Sodium Level 137 mmol/L (136-145)
[2021-10-30 15:34] LABS: Bacteria 0 SEEN /hpf (None Seen); Mucous, Urine 0 SEEN /hpf (<or=2+); Red Blood Cells-Urine 0 SEEN /hpf (0-5)
--- NOTE | 2021-10-30 15:39 | CT_ITS ---
STUDY: CT BRAIN WITHOUT CONTRAST REASON FOR EXAM: Female, 86 years old. Head injury RADIATION DOSAGE (If Supplied By Facility): CTDIvol = ( 44.99 ) mGy, DLP = ( 866.41 ) mGycm TECHNIQUE: Transaxial CT imaging of the brain was performed without administration of intravenous contrast material. Individualized dose optimization techniques were used for this CT. COMPARISON: Comparison is made with prior study 08/10/2019. FINDINGS: Normal soft tissue structures. Normal calvarium. There is mild cerebral atrophy with widening of the extra-axial spaces and ventricular dilatation. There are areas of decreased attenuation within the white matter tracts of the supratentorial brain, consistent with microvascular disease changes. Normal basal ganglia and thalami. Normal brainstem. Normal cerebellum. There is no intracranial hemorrhage. There are no findings of an acute ischemic infarction. Normal visualized paranasal sinuses. CT/Brain/Head without Contrast IMPRESSION: Chronic involutional changes of the brain. Electronically Signed: Quirino Martinez MD at 15:53 EST , Service support ,
[2021-10-30 15:52] LABS: Color, Urine Yellow (Yellow); Glucose, Dipstick Normal (Normal); Ketone-Dipstick 50 mg/dl (Negative); Leukocyte Esterase-Dipstick 25 /ul (Negative); Nitrite-Dipstick Negative (Negative); Occult Blood-Urine Negative /ul (Negative); Protein-Dipstick Negative (Negative); Urine Bilirubin Dipstick Negative (Negative); Urine Clarity Clear (Clear); Urine Urobilinogen Normal (Normal)
[2021-10-30 16:04] LABS: Squamous Epithelial Cells - UA 0-5 SEEN /hpf (5-10); White Blood Cells 10-25 SEEN /hpf (0-5)
[2021-10-30 16:05] LABS: Amorphous Sediment 1+
[2021-10-30 16:29] VITALS: BP 104/92; PULSE 98; RESP 16; TEMP 37; O2SAT 94; O2SAT 96
[2021-10-30 16:42] VITALS: BP 104/72; PULSE 98; RESP 16; TEMP 37.1; O2SAT 95
--- NOTE | 2021-10-30 16:58 | ED.RN ---
report attempted to call. tube operator at [facility] could not reach anyone on c-wing states would call back
--- NOTE | 2021-10-30 17:17 | ED.RN ---
report called to [facility]. they request leave the iv in
== END 2021-10-30 18:18 | disposition home or self-care (01) ==
PROVIDERS: Emergency Provider Student in an Organized Health Care Education/Training Program; PCP Family Medicine Geriatric Medicine
DX: R41.0 Disorientation, unspecified (principal); R53.1 Weakness; Z79.01 Long term (current) use of anticoagulants
CPT/HCPCS: 70450; 71045; 80053; 81001; 85025; 87086; 87088; 87186; 99285; A4216

== ENCOUNTER → 2022-09-07 | Outpatient (CLI) | payer MEDICARE, OTHER, SELFPAY ==
[2022-09-07 17:47] LABS: Absolute Lymphocyte Count 1.33 X10^3/uL (0.83-4.51); Absolute Neutrophil Count 11.1 X10^3/uL (2.0-7.7); Basophil# 0.03 X10^3/uL; Basophil% 0.2 % (0-1); Eosinophil# 0.27 X10^3/uL; Eosinophils% 1.9 % (0-5); Hematocrit 41.8 % (37-47); Hemoglobin 13.5 g/dL (12.0-15.0); Lymphocyte # 1.33 X10^3/ul (0.83-4.51); Lymphocyte % 9.3 % (19-41); Mean Corp Hgb Conc 32.3 g/dL (32-36); Mean Corpuscular Hgb 30.8 pg (27.0-32.0); Mean Corpuscular Volume 95.2 fL (81-99); Mean Platelet Vol. 9.9 fl (6.2-12.0); Monocyte# 1.51 X10^3/uL; Monocyte% 10.6 % (0-10); NRBC Flagged by Analyzer 0 % (0-5); Neutrophil # 11.05 X10^3/uL (2.7-7.7); Neutrophil % 77.4 % (47-70); POSITIVE DIFFERENTIAL YES; Platelet Count 260 K/mm3 (150-450); RBC Distribution Width CV 13.8 % (11.6-14.6); RBC Distribution Width SD 48.6 fl (35.1-43.9); Red Blood Count 4.39 M/mm3 (4.2-5.4); White Blood Count 14.3 K/mm3 (4.4-11.0)
[2022-09-07 18:03] LABS: Anion Gap 10 (5-15); BUN 27 mg/dL (7-18); BUN/Creat Ratio 24.3 RATIO (10-20); Calcium,Total 9.6 mg/dL (8.5-10.1); Chloride 100 mmol/L (98-107); Creatinine, Serum 1.11 mg/dL (0.55-1.02); EST Glomerular Filtration Rate 49 mL/min (>60); Est Glom Filt Rate - Afr Amer 60 mL/min (>60); Glucose 117 mg/dL (74-106); Potassium 3.1 mmol/L (3.5-5.1); Sodium Level 137 mmol/L (136-145)
[2022-09-07 18:22] LABS: Differential Indicated SCAN CRITERIA MET
[2022-09-07 18:23] LABS: Anisocytosis RARE; Macrocytosis RARE; Platelet Estimate ADEQUATE (ADEQ); Red Cell Morphology N CHROM NORMAL (NORM C&C)
[2022-09-10 13:40] LABS: Pathologist Review Reviewed
== END | disposition home or self-care (01) ==
LOC: MTLAB 16:50
PROVIDERS: PCP Family Medicine Geriatric Medicine; Referring Provider Family Medicine; Visit Provider Family Medicine
DX: R53.83 Other fatigue (principal); Z87.440 Personal history of urinary (tract) infections
CPT/HCPCS: 36415; 80048; 85025

== ENCOUNTER 2023-03-14 08:46 | Emergency (ER) | payer MEDICARE, OTHER, SELFPAY ==
[2023-03-14 08:47] VITALS: BP 121/82; PULSE 88; RESP 18; TEMP 37.1; O2SAT 93; BMI 30.3
--- NOTE | 2023-03-14 08:53 | EKG12_ITS ---
Test Reason : CP Blood Pressure : / mmHG Vent. Rate : 084 BPM Atrial Rate : 084 BPM P-R Int : 248 ms QRS Dur : 084 ms QT Int : 410 ms P-R-T Axes : 051 -36 051 degrees QTc Int : 484 ms Sinus rhythm with 1st degree A-V block with Premature atrial complexes Left axis deviation Abnormal ECG Confirmed by DEBORAH CERRATO ([id number]), online editor MAYA OTTO ([id number]) on 03/19/2023 7:46:11 AM Referred By: KALEB Confirmed By:DEBORAH CERRATO
[2023-03-14 08:58] VITALS: O2SAT 95
[2023-03-14 09:14] LABS: Absolute Lymphocyte Count 1.99 X10^3/uL (0.83-4.51); Absolute Neutrophil Count 5.4 X10^3/uL (2.0-7.7); Basophil# 0.05 X10^3/uL; Basophil% 0.6 % (0-1); Eosinophil# 0.24 X10^3/uL; Eosinophils% 2.8 % (0-5); Hematocrit 42.3 % (37-47); Hemoglobin 13.7 g/dL (12.0-15.0); Lymphocyte # 1.99 X10^3/ul (0.83-4.51); Lymphocyte % 23.3 % (19-41); Mean Corp Hgb Conc 32.4 g/dL (32-36); Mean Corpuscular Hgb 30.6 pg (27.0-32.0); Mean Corpuscular Volume 94.6 fL (81-99); Mean Platelet Vol. 9.6 fl (6.2-12.0); Monocyte# 0.89 X10^3/uL; Monocyte% 10.4 % (0-10); NRBC Flagged by Analyzer 0 % (0-5); Neutrophil # 5.35 X10^3/uL (2.7-7.7); Neutrophil % 62.7 % (47-70); Platelet Count 275 K/mm3 (150-450); RBC Distribution Width SD 45.4 fl (35.1-43.9); Red Blood Count 4.47 M/mm3 (4.2-5.4); White Blood Count 8.5 K/mm3 (4.4-11.0)
--- NOTE | 2023-03-14 09:14 | ED.VIS.CHEST ---
HPI History of Present Illness Chief Complaint: Chest Pain Detail of Chief Complaint: Back pain Informant: patient and family Onset/Context/Timing Onset: Today and Yesterday Activity at onset: gradual Timing: Intermittent Quality: Positive for Aching Current Severity: Gone Maximum Severity: Mild Worsened By: Nothing Relieved By: Nothing Associated Symptoms: Negative for Nausea, Vomiting or Diaphoresis Narrative Narrative: 79-year-old female history of DVT on Xarelto. Yesterday she went to lunch with her family they said she was complaining of mid back pain at that time and thought the chair was uncomfortable. This morning she awoke with having chest discomfort and back pain. No recent illness. No recent hospitalization. No nausea, vomiting or diarrhea. No fever or chills. No cough. She is chronically short of breath that is not new or different. No hemoptysis. Currently she has no chest pain. She is complaining of her mid upper back. No recent falls or trauma. Denies any abdominal pain. Prior Similar Symptoms: Yes Recent Illness/Hospitalization: No CVD Risk Factors: Negative for Diabetes or Smoking PE Risk Factors: Positive for Prior DVT or PE; Negative for Recent Travel/Surgery, Recent Immobilization, Cancer or OCP + Smoking + >/=35 TAD Risk Factors: Negative for Marfan's Syndrome [facility] Medical History Aneurysm artery, renal Anorexia Asthma COPD (chronic obstructive pulmonary disease) Dementia Diverticulosis DVT (deep venous thrombosis) Dysphagia Encephalopathy Failure to thrive Fall Fatigue Osteoarthritis Retention of urine Thoracic aortic aneurysm UTI (urinary tract infection) Weakness Home Medications Melatonin 30 mg PO QHS 09/28/19 [History Last Taken Unknown] acetaminophen 325 mg tablet 2 tab PO Q6H PRN PAIN/FEVER 09/28/19 [History Last Taken Unknown] amlodipine 5 mg tablet 5 mg PO DAILY 09/28/19 [History Last Taken Unknown] bisacodyl 10 mg rectal suppository [address] DAILY PRN Constipation 09/28/19 [History Last Taken Unknown] cholecalciferol (vitamin D3) 25 mcg (1,000 unit) capsule 1,000 unit PO DAILY 09/28/19 [History Last Taken Unknown] dorzolamide 2 % eye drops 1 drp EACH EYE BID 09/28/19 [History Last Taken Unknown] latanoprost 0.005 % eye drops 1 drp EACH EYE QHS 09/28/19 [History Last Taken Unknown] losartan 100 mg tablet 100 mg PO DAILY 09/28/19 [History Last Taken Unknown] magnesium hydroxide 400 mg/5 mL oral suspension 30 ml PO DAILY PRN PRN Constipation 09/28/19 [History Last Taken Unknown] mineral oil [address] DAILY PRN Constipation 09/28/19 [History Last Taken Unknown] rivaroxaban 20 mg tablet 20 mg PO DAILY 09/28/19 [History Last Taken Unknown] memantine 10 mg tablet 10 mg PO BID 01/05/20 [History Last Taken Unknown] Allergy/AdvReac Type Severity Reaction Status Date / Time Sulfa (Sulfonamide Allergy Hives Verified 03/14/23 08:53 Antibiotics) Family History Mother Cancer Father Cancer Surgical History History of cholecystectomy Social History Smoking Status: Never smoker ROS ROS ED ROS Narrative Denies recent illness. Back pain. Review of Systems ROS Unobtainable: Denies due to encephalopathy Constitutional Constitutional ED: Denies chills or fever(s) Eyes Eyes: Reports none ENT ENT ED: Denies ear pain Cardiovascular Cardiovascular: Reports chest pain; Denies as per HPI Respiratory/Chest Respiratory/Chest: Denies cough or dyspnea Gastrointestinal Gastrointestinal: Denies abdominal pain, constipation, diarrhea, melena, nausea or vomiting Genitourinary Genitourinary ED: Denies dysuria or hematuria Musculoskeletal Musculoskeletal: Reports back pain; Denies arthralgias, myalgias or neck pain Integumentary Denies abscess Neurologic Neurologic: Denies headache(s) Psychiatric Psychiatric: Denies anxiety or depression Endocrine Endocrinology: Denies cold intolerance Hematologic/Lymphatic Hematologic/Lymphatic: Denies easy bleeding Allergic/Immunologic Allergic/Immunologic ED: Denies mouth swelling EXAM Physical Exam Narrative Exam Narrative: Well-appearing 7-year-old female. Vital signs are stable afebrile. Pulse ox 93% on room air. Blood pressure 121/82. She does not look septic or toxic. Sons at bedside. H EENT exam unremarkable atraumatic neck nontender. Lungs clear to auscultation bilaterally. Heart regular rhythm rate about 90 no murmur. Chest wall nontender. Abdomen soft nontender. Normal bowel sounds no peritoneal signs. No pulsatile mass. Back she is kyphotic. There is no reproducible back pain, posterior rib pain or spine pain. There is no signs of redness, warmth or any trauma. There is no reproducible back pain. Moving all 4 extremities. She has some mild swelling in her right leg and its where she reportedly has a DVT. Neurologically she is awake and alert. Answering questions following commands. Normal motor strength. Equal symmetrical radial pulses. Const Vital Signs: 03/14/23 08:47 03/14/23 08:53 03/14/23 08:58 Temperature 98.7 F Temperature Source Temporal Pulse Rate 88 Respiratory Rate 18 Respiratory Effort Normal Respiratory Pattern Normal Blood Pressure 121/82 H Blood Pressure Mean 95 Pulse Ox 93 95 Oxygen Delivery Method Room Air Room Air Positive well nourished and well developed; Negative for cachectic, contractures or unkempt General Appearance ED: well developed and NAD; Negative for unkempt, cachectic, contractures or pallor Nutritional Appearance: Negative for cachectic HEENT Reports moist mucous membranes normocephalic and atraumatic; Negative for trauma or tenderness Eyes PERRL and EOMs intact bilaterally General Eye ED: Negative for pale conjunctiva or scleral icterus Neck no lymphadenopathy, supple and no JVD Chest Wall inspection of chest normal and palpation of chest normal Resp normal respiratory effort Effort and Inspection: Negative for respiratory distress Auscultation: Negative for rales, rhonchi or wheezes Cardio regular rate, regular rhythm, S1 normal heart sound, S2 normal heart sound and no murmurs Rate: Negative for bradycardia Rhythm: Negative for abnormal rhythm Peripheral Pulses: pulses 2+ throughout GI normal to inspection, nondistended, normoactive bowel sounds, soft to palpation, non-tender and non-distended; Negative for hepatosplenomegaly or no masses Auscultation: Negative for hyperactive bowel sounds Palpation: Negative for splenomegaly Back/Spine no CVA tenderness and no thoracic nor lumbar tenderness General Back: Negative for CVA tenderness Cervical Spine: Negative for cervical spine tenderness Extremity Negative for normal to inspection Extremity Narrative: Mild swelling right calf. General Extremety ED: Yes edema General Extremity: edema Neuro oriented x3 and CN's II-XII intact bilaterally Sensorium / Orientation: awake, alert, oriented to person, oriented to place and oriented to time Motor Exam: strength 5/5 throughout Psych mental status grossly normal Appearance: Negative for unkempt Attitude: No agitated Mood & Affect: Negative for depressed, anxious or tearful Skin no rashes or lesions noted and no wounds General Skin Exam: Negative for jaundice or pallor Rashes: No rashes noted Trauma: Negative for abrasion Image ED - Body Diagram Man: 1. Nonreproducible upper back pain. MDM MDM MDM Narrative Medical decision making narrative: 87-year-old really with back pain she does not complain of any chest pain. According to the senior care she may have had chest pain. She is already on a blood thinner. I do not have a strong clinical suspicion this is a PE. It really does not sound cardiac. It sounds like musculoskeletal back pain but is not reproducible. She undergo cardiac work-up. I asked her and she did not want a thing for pain. Repeat exam at 9:38 AM. Doing well. Again reevaluated her back there is no reproducible pain. She points to her thoracic spine. An x-ray will be obtained. Repeat exam patient is doing well at 10:10 AM. We discussed her normal test results. This does not seem to be cardiac at all. I do not think she needs a second troponin. We discussed at length the history of her thoracic aneurysm which I am not sure they were aware of. At her age she did not want any advanced surgical procedures. And both her and her son did not want further evaluation of this. Her back pain could be from a thoracic aneurysm dissection or even a leak but she did not want intervention done if that was the case. She will be discharged back to the extended care facility. She did not like being strong for pain at this time and was given a Motrin. History & Record Review Discussion w/independent historian: Patient and Friend Lab Data Attestation: I reviewed the patient's lab results. Lab results narrative: CBC shows a normal white count 8.5. Normal H&H at 13.7 and 42. Platelets 275. Chemistries show potassium of 3.3. Gap at 9. BUN 28 creatinine 0.9. Glucose 125. Troponin 10. Labs: Laboratory Results - last 24 hr 03/14/23 03/14/23 08:50 08:50 WBC 8.5 RBC 4.47 Hgb 13.7 Hct 42.3 MCV 94.6 MCH 30.6 MCHC 32.4 RDW Std Deviation 45.4 H RDW Coeff of Marvin 13.0 Plt Count 275 MPV 9.6 Immature Gran % (Auto) 0.200 Neut % (Auto) 62.7 Lymph % (Auto) 23.3 [place] % (Auto) 10.4 H Eos % (Auto) 2.8 Baso % (Auto) 0.6 Absolute Neuts (auto) 5.4 Absolute Lymphs (auto) 1.99 Nucleated RBC % 0 Sodium 139 Potassium 3.3 L Chloride 102 Carbon Dioxide 28.0 Anion Gap 9 BUN 28 H Creatinine 0.91 Estim Creat Clear Calc 33.80 Est GFR (MDRD) Af Amer 75 Est GFR (MDRD) Non-Af 62 BUN/Creatinine Ratio 30.8 H Glucose 125 H Calcium 9.4 Troponin I High Sens 10 Radiography Chest X-Ray - ED: 1 View, Read by ED Physician, Normal, Heart, Lungs, Mediastinum, Bony Structures, No Acute Disease and Chronic Changes X-Ray: T-Spine, Read by ED Physician, No Fracture, Normal Bony Alignment and - (Descending thoracic aortic aneurysm. Seen on prior studies. Family and patient wanted no further work-up.) Diagnostic Testing: Clinical Impression(s) from Imaging Studies Chest X-Ray 03/14/23 09:30 IMPRESSION: Stable chest with no acute or active cardiopulmonary disease. Electronically Signed: Duc Castañeda, at 9:46 EDT , Chest x-ray, portable, single view, interpreted by myself shows no acute abnormality. Chronic changes. Normal cardiac silhouette mediastinum. No effusions. No infiltrates. Thoracic spine x-ray shows no acute abnormality. There is a known descending thoracic aneurysm which they have seen in the past. I did not see any gross or acute bony abnormalities or lytic lesions. I discussed with the patient and her family about the thoracic, aortic aneurysm and they did not want further evaluation for that. Rhythm Strip Rhythm Strip: Sinus Rhythm Rate: 84 Ectopy: PAC(s) EKG Initial EKG: Attestation: I personally reviewed and interpreted this EKG as follows: Interpretation: Sinus Rhythm and No Acute Injury Pattern Comments: Normal sinus rhythm rate 84 no acute signs of PR or ischemia. First-degree AV block with a CT interval 248. Discharge Plan Triage Chief Complaint: Chest Pain ED Provider: Noah Garibay Dx/Rx/DC Orders Clinical Impression: Back pain, Atypical chest pain, History of aortic aneurysm, Chronic anticoagulation Prescriptions: No Action latanoprost 1 DROP bottle 1 drp EACH EYE QHS acetaminophen 325 MG tablet 2 tab PO Q6H PRN (Reason: PAIN/FEVER) amlodipine 5 MG tablet 5 mg PO DAILY mineral oil 1 BOTTLE enema [address] DAILY PRN (Reason: Constipation) Rx Instructions: AFTER 8 HRS OF NO BOWEL MOVEMENT AFTER RECEIVING SUPPOSITORY magnesium hydroxide 30 ML suspension 30 ml PO DAILY PRN PRN (Reason: Constipation) bisacodyl 10 MG suppository [address] DAILY PRN (Reason: Constipation) losartan 100 MG tablet 100 mg PO DAILY dorzolamide 1 DROP bottle 1 drp EACH EYE BID cholecalciferol (vitamin D3) 1,000 UNIT capsule 1,000 unit PO DAILY rivaroxaban 20 MG tablet 20 mg PO DAILY Melatonin 3 MG tablet 30 mg PO QHS memantine 10 MG tablet 10 mg PO BID Primary Care Provider: Santo Guerrero Referrals: Santo Guerrero [[facility]] - 3-5 Days if not improving Activity Restrictions/Additional Instructions: Tylenol for your back pain. Follow-up with the medical observer of your extended care facility or your primary care physician for further pain medications as needed. Disposition Disposition: Home, Self Care
--- NOTE | 2023-03-14 09:30 | RAD_ITS ---
STUDY: X-RAY CHEST REASON FOR EXAM: Female, 87 years old. Chest pain. TECHNIQUE: Single frontal view of the chest. COMPARISON: January 2020. FINDINGS: Low volume inspiration unchanged. There is no demonstrated pleural abnormality. Stable cardiomegaly. Normal mediastinum and patricia. Normal visualized pulmonary arteries. Aortic tortuosity with calcification unchanged. Normal visualized ribs, clavicles, and shoulders. There is no demonstrated abnormality of the visualized soft tissue structures of the upper abdomen. RAD/Chest 1 View (Portable) IMPRESSION: Stable chest with no acute or active cardiopulmonary disease. Electronically Signed: Duc Castañeda, at 9:46 EDT ,
[2023-03-14 09:32] LABS: Anion Gap 9 (5-15); BUN 28 mg/dL (7-18); BUN/Creat Ratio 30.8 RATIO (10-20); Calcium,Total 9.4 mg/dL (8.5-10.1); Chloride 102 mmol/L (98-107); Creatinine, Serum 0.91 mg/dL (0.55-1.02); EST Glomerular Filtration Rate 62 mL/min (>60); Est Glom Filt Rate - Afr Amer 75 mL/min (>60); Glucose 125 mg/dL (74-106); Potassium 3.3 mmol/L (3.5-5.1); Sodium Level 139 mmol/L (136-145); Troponin-I HS (w/2H Reflex) 10 pg/mL (3.0-54.0)
--- NOTE | 2023-03-14 09:40 | RAD_ITS ---
STUDY: X-RAY - THORACIC SPINE REASON FOR EXAM: Female, 87 years old. Atraumatic back pain. TECHNIQUE: 2 view(s) of the thoracic spine were obtained. COMPARISON: None. FINDINGS: Generalized osteopenia. Marked increased kyphosis. There is no substantial scoliosis. Diffuse intervertebral disc space narrowing with small osteophytes. Marked vascular calcification. RAD/Thoracic Spine 2 Views IMPRESSION: Osteopenia with diffuse mild thoracic spondylosis and increased kyphosis. No acute abnormality. Electronically Signed: Duc Castañeda, at 10:14 EDT ,
[2023-03-14] MEDS: Ibuprofen 200 MG Tablet 400 MG PO (09:50)
[2023-03-14 10:23] VITALS: BP 111/82; PULSE 92; RESP 16; O2SAT 98
--- NOTE | 2023-03-14 11:03 | ED.RN ---
called report to Suzie at [facility]. informed that urine smelled a little strong at dc.
[2023-03-14 11:09] LABS: Reflex Troponin-HS? (from REC) Y
== END 2023-03-14 10:52 | disposition home or self-care (01) ==
PROVIDERS: Emergency Provider Emergency Medicine; PCP Family Medicine; Visit Provider Emergency Medicine
DX: M54.9 Dorsalgia, unspecified (principal); R07.89 Other chest pain; Z86.718 Personal history of other venous thrombosis and embolism; Z79.01 Long term (current) use of anticoagulants
CPT/HCPCS: 71045; 72070; 80048; 84484; 85025; 93005; 99285